=== PATIENT | female | born 1955 | race Caucasian/White ===

== ENCOUNTER 2021-05-19 15:29 | Outpatient (REF) | payer MEDICARE, SELFPAY | END 2021-05-19 15:30 | disposition home or self-care (01) | LOC: HO.LAB 15:29 | PROVIDERS: PCP Internal Medicine | DX: N39.0 Urinary tract infection, site not specified (principal) | CPT/HCPCS: 87086; 87088; 87186; 99212 ==

== ENCOUNTER 2021-09-01 15:11 | Outpatient (REF) | payer MEDICARE, SELFPAY ==
[2021-09-01 16:31] LABS: Appearance Urine CLEAR; Color Urine YELLOW; Glucose Urine UA NEG (NEG); Leukocyte Esterase Urine NEG (NEG); Nitrite Urine NEG (NEG); Specific Gravity - Urine >= 1.030 (1.005-1.025); Urine Blood NEG (NEG); Urine Ketones 5 MG/DL (NEG); Urine Protein NEG (NEG-TRACE)
[2021-09-01 16:47] LABS: Bacteria Urine 3+ /LPF; RBC Urine 0-2 /HPF (0); Squamous Epithelial Cell Urine TRACE /LPF
== END 2021-09-01 15:12 | disposition home or self-care (01) ==
LOC: HO.HMGCLDS 15:11
PROVIDERS: PCP Internal Medicine
DX: N39.0 Urinary tract infection, site not specified (principal)
CPT/HCPCS: 81001; 87086

== ENCOUNTER 2021-09-24 08:25 | Day surgery (SDC) | payer MEDICARE, SELFPAY ==
[2021-07-22 14:21] VITALS: BMI 25.7
--- NOTE | 2021-08-02 10:11 | P.CONAN_ITS ---
HPI - Anesthesia Eval Consult details Narrative: 66yo F for Colonoscopy PMFSH Active Problems Active Problems: All Active Problems (Updated 07/22/21 @ 14:26 by Yuridia Carlos, RN) Recurrent UTI (Acute) Past Medical History Medical History (Updated 07/22/21 @ 14:26 by Yuridia Carlos RN) ADD (attention deficit disorder) Diabetes Dislocated patella Hx of skin cancer, basal cell Hypothyroidism Osteoarthritis PONV (postoperative nausea and vomiting) Psoriatic arthritis PVC (premature ventricular contraction) Surgical History Surgical History (Updated 07/22/21 @ 14:19 by Yuridia Carlos RN) H/O abdominoplasty H/O cystoscopy H/O knee surgery H/O: section History of bilateral knee arthroplasty History of bladder surgery History of colon resection Hx of colonoscopy Hx of LASIK Social History Social History (Updated 07/22/21 @ 14:24 by Yuridia Carlos RN) Patient Tobacco Use Status: Former Tobacco user Quit Date: Are you DNR?: No Advance Directives: No Advance Directives Information Provided: Yes Advance Directives on File: No Patient : No Meds Allergies Allergy/AdvReac Type Severity Reaction Status Date / Time Iodinated Contrast Allergy Intermediate HIVES Verified 07/22/21 14:21 Media [IVP DYE] Home Medications Medication Instructions Recorded Confirmed Last Taken Type dextroamphetamine 1 tab PO BID 04/11/20 07/22/21 Unknown History -amphetamine 20 mg tablet flash glucose #1 ea 04/11/20 Unknown History sensor levothyroxine 112 112 mcg PO DAILY 04/11/20 07/22/21 Unknown History mcg tablet lisinopril 5 mg 5 mg PO DAILY 04/11/20 07/22/21 Unknown History tablet metformin 1,000 1,000 mg PO BID 04/11/20 07/22/21 Unknown History mg tablet Exam Exam Date and Time: August 02, 2021 1011 Height,Weight and Vital Signs: Height 5 ft 10 in Weight 81.193 kg Assessment and Plan Assessment Anesthesia Assessment: Chart Reviewed
--- NOTE | 2021-09-24 08:04 | P.CONAN_ITS ---
HPI - Anesthesia Eval Consult details Narrative: Screening Colonoscopy ON LICENSE OF [facility] Active Problems Active Problems: All Active Problems (Updated 07/22/21 @ 14:26 by Yuridia Carlos, RN) Recurrent UTI (Acute) Past Medical History Medical History ADD (attention deficit disorder) Diabetes Dislocated patella Hx of skin cancer, basal cell Hypothyroidism Osteoarthritis PONV (postoperative nausea and vomiting) Psoriatic arthritis PVC (premature ventricular contraction) Family History Family history of problems with anesthesia: No Surgical History Surgical History H/O abdominoplasty H/O cystoscopy H/O knee surgery H/O: section History of bilateral knee arthroplasty History of bladder surgery History of colon resection Hx of colonoscopy Hx of LASIK History of Problems with Anesthesia: No Social History Social History (Updated 07/22/21 @ 14:24 by Yuridia Carlos RN) Patient Tobacco Use Status: Former Tobacco user Quit Date: Meds Allergies Allergy/AdvReac Type Severity Reaction Status Date / Time Iodinated Contrast Media Allergy Intermediate HIVES Verified 07/22/21 14:21 [IVP DYE] Active Medications: Current Medications Lactated Ringer's (Lr) 1,000 mls @ 50 mls/hr IVCONT .Q20H [facility] Home Medications Medication Instructions Recorded Confirmed Last Taken Type dextroamphetamine-amphetamine 20 1 tab PO BID 04/11/20 07/22/21 Unknown History mg tablet flash glucose sensor #1 ea 04/11/20 Unknown History levothyroxine 112 mcg tablet 112 mcg PO DAILY 04/11/20 07/22/21 Unknown History lisinopril 5 mg tablet 5 mg PO DAILY 04/11/20 07/22/21 Unknown History metformin 1,000 mg tablet 1,000 mg PO BID 04/11/20 07/22/21 Unknown History Exam Exam Date and Time: September 24, 2021 0804 Height,Weight and Vital Signs: Height 5 ft 10 in Weight 81.193 kg Airway Mallampati Class: II TM Dist: >3cm Neck ROM: Full Loose/Missing/Broken Teeth: No Heart: rrr+s1s2 Lungs: cta b/l Assessment and Plan Assessment Anesthesia Assessment: Anesthesia Plan Discussed and Chart Reviewed Final Anesthetic Review Family History of Problems with Anesthesia: No History of Problems with Anesthesia: No NPO: Yes ASA Class: III Final Preanesthetic Review: No Changes in Pt Med Stat, Meds/Allgs Chart Reviewed, Consent Obtained/Reviewed and Anes Risks/Benef Reviewed Patient Risk: Intermediate Procedure Risk: Low Assessment/Block/Sedation in SS: Assess/Block/Sedation-SS Anesthetic Plan Anesthetic Plan: MAC: and Agree w/ Assess. and Plan Disposition: Standard PACU
[2021-09-24] MEDS: Lactated Ringers 1,000 ML 50 ML IVCONT (09:00)
[2021-09-24 09:07] LABS: Glucose, Whole Blood 204 mg/dL (60-115)
[2021-09-24 09:08] VITALS: BP 138/64; PULSE 75; RESP 16; TEMP 36.4; O2SAT 99
--- NOTE | 2021-09-24 10:03 | MHC.SHP ---
Pre-Procedural Eval Section A Date of Service: 09/24/21 Section B Chief Complaint: Hemorrahage of anus and rectum, Change in bowel Wing Details of Present Illness: see H&P no changes Relevant Family History (Specify if Yes): No Relevant Social History: None Present Medications: see Short Stay Collaborative assessment Medical History: No relevant PMH History of Previous Operations: No relevant previous surgery Allergies: Allergies Allergy/AdvReac Type Severity Reaction Status Date / Time Iodinated Contrast Media Allergy Intermediate HIVES Verified 07/22/21 14:21 [IVP DYE] Review of Systems Sugical H&P ROS: Negative: Constitution, Cardiovascular, Respiratory, Neurological, Psychiatric, Hem-Onc, Allergic/Immunologic, Gastrointestinal, Genitourinary, Musculoskeletal, Integumentary, Endocrine and Eyes/Ears/Nose/Throat Exam Surgical H&P Exam: Normal: HEENT, Normal: Heart, Normal: Lungs, Normal: Extremities, Normal: Abdomen, Normal: Skin and Normal: Neurological Plan Diagnosis/Plan: Unchanged I have reviewed the history and physical and performed a pertinent physical examination on my patient. No changes have occurred unless specified.
--- NOTE | 2021-09-24 10:49 | PM.OP ---
Brief Operative Note Date of Service: 09/24/21 Pre-op diagnosis: rectal bleeding, change in bowels Post-op diagnosis: same (normal exam) Procedure: colonoscopy Surgeon: Jaquan Daniel Anesthesia: MAC Was an Dye Tub Tender used for this Procedure?: No Estimated blood loss (mL): 2 Pathology: other (sigmoid biopsies) Condition: stable Disposition: PACU
[2021-09-24 10:51] VITALS: BP 96/48; PULSE 68; RESP 16; TEMP 37.3; O2SAT 96
[2021-09-24 11:06] VITALS: BP 114/58; PULSE 65; RESP 16; TEMP 36.1; O2SAT 99
--- NOTE | 2021-09-24 11:10 | OP_ITS ---
SURGEON: Jaquan Daniel MD INDICATIONS: Rectal bleeding and change in bowel habits. PREOPERATIVE DIAGNOSIS: POSTOPERATIVE DIAGNOSIS: PROCEDURE PERFORMED: Colonoscopy to the terminal ileum with biopsy. ESTIMATED BLOOD LOSS: COMPLICATIONS: ANESTHESIA: ASSISTANTS: SPECIMENS: MEDICATIONS: Monitored anesthesia care. DESCRIPTION OF PROCEDURE: History and physical were performed. The risks and benefits of the procedure were explained to the patient. Informed consent was obtained. The patient was placed in the left lateral decubitus position. A digital rectal exam was performed and showed some decreased sphincter tone. The Olympus pediatric video colonoscope was introduced into the rectum and advanced to the cecum without difficulty. The cecum was identified by transillumination, palpation, and identification of ileocecal valve. Examination was performed. The scope was removed. She tolerated the procedure well and was taken to recovery area in stable condition. FINDINGS: The terminal ileum was examined and appeared normal. The visualized colonic mucosa was normal. The quality of prep was good. There was diverticulosis involving the sigmoid with scattered diverticula throughout the remainder of the colon. There was some slight narrowing to the rectal sigmoid, which made retroflexed examination difficult, but no mass lesion was identified. Random sigmoid biopsies were obtained to evaluate for microscopic colitis. IMPRESSION: Negative colonoscopy. RECOMMENDATION: 1. Follow up the biopsy results. 2. Repeat colonoscopy is recommended in 10 years for average risk individuals. MD ARUN Orantes/DEBORAHL / [phone]
== END 2021-09-24 12:05 | disposition home or self-care (01) ==
PROVIDERS: PCP Internal Medicine; Visit Provider Internal Medicine Gastroenterology
PROC: 0DJD8ZZ Inspection of Lower Intestinal Tract, Via Natural or Artificial Opening Endoscopic (ICD-10-PCS; CPT 45378; principal; 2021-09-24 08:20)
DX: K62.5 Hemorrhage of anus and rectum (principal); R19.4 Change in bowel habit; Z86.010 Personal history of colon polyps; K57.30 Diverticulosis of large intestine without perforation or abscess without bleeding; K62.89 Other specified diseases of anus and rectum; R32 Unspecified urinary incontinence; Z87.440 Personal history of urinary (tract) infections; I49.3 Ventricular premature depolarization; J30.2 Other seasonal allergic rhinitis; E11.9 Type 2 diabetes mellitus without complications; Z79.84 Long term (current) use of oral hypoglycemic drugs; Z79.82 Long term (current) use of aspirin; Z79.899 Other long term (current) drug therapy; Z91.041 Radiographic dye allergy status; Z90.49 Acquired absence of other specified parts of digestive tract; Z96.653 Presence of artificial knee joint, bilateral; Z98.890 Other specified postprocedural states; Z87.891 Personal history of nicotine dependence
CPT/HCPCS: 45380; 82947; 88305

== ENCOUNTER → 2021-10-14 10:07 | Outpatient (BNVA) | payer MEDICARE, SELFPAY | PROVIDERS: PCP Internal Medicine; Visit Provider Urology | DX: Z13.89 Encounter for screening for other disorder (principal) ==

== ENCOUNTER → 2021-11-25 09:28 | Outpatient (BNVA) | payer MEDICARE, SELFPAY | PROVIDERS: PCP Internal Medicine; Visit Provider Urology | DX: N39.0 Urinary tract infection, site not specified (principal) | CPT/HCPCS: 99212 ==

== ENCOUNTER → 2022-05-31 10:12 | Outpatient (BNVA) | payer MEDICARE, SELFPAY | PROVIDERS: PCP Internal Medicine; Visit Provider Urology | DX: N39.0 Urinary tract infection, site not specified (principal); N32.81 Overactive bladder | CPT/HCPCS: 51798; 99212 ==

== ENCOUNTER 2022-08-09 14:18 | Outpatient (REF) | payer MEDICARE, SELFPAY ==
[2022-08-09 16:40] LABS: Appearance Urine Clear; Color Urine Yellow; Glucose Urine UA Negative (Negative); Leukocyte Esterase Urine Trace (Negative); Nitrite Urine Negative (Negative); PH 5.5 (5.0-9.0); Specific Gravity - Urine 1.025 (1.005-1.025); UMIC TRIGGER UA YES; Urine Blood Negative (Negative); Urine Ketones Negative (Negative); Urine Protein Negative (Neg-Trace)
[2022-08-09 16:43] LABS: Bacteria Urine None Seen (None Seen); Hyaline Casts Urine 0-2 /LPF (0-2); RBC Urine 0-2 /HPF (0-2); Squamous Epithelial Cell Urine 0-2 /HPF (0-2); WBC Urine 0-5 /HPF (0-5)
== END 2022-08-09 14:19 | disposition home or self-care (01) ==
LOC: HO.HMGCLDS 14:18
PROVIDERS: PCP Internal Medicine; Visit Provider Urology
DX: N39.0 Urinary tract infection, site not specified (principal)
CPT/HCPCS: 81001; 87086

== ENCOUNTER → 2022-12-08 11:28 | Outpatient (BNVA) | payer MEDICARE, SELFPAY | PROVIDERS: PCP Internal Medicine; Visit Provider Urology | DX: N31.9 Neuromuscular dysfunction of bladder, unspecified (principal); N32.81 Overactive bladder; N39.0 Urinary tract infection, site not specified | CPT/HCPCS: 51798; 99212 ==

== ENCOUNTER 2023-10-09 14:49 | Outpatient (REF) | payer MEDICARE, SELFPAY ==
[2023-10-09 15:32] LABS: Appearance Urine Clear; Color Urine Yellow; Glucose Urine UA Negative (Negative); Leukocyte Esterase Urine Small (1+) (Negative); Nitrite Urine Negative (Negative); PH 5.5 (5.0-9.0); UMIC TRIGGER UA YES; Urine Blood Negative (Negative); Urine Ketones Negative (Negative); Urine Protein Negative (Neg-Trace)
[2023-10-09 15:35] LABS: Bacteria Urine None Seen (None Seen); Hyaline Casts Urine 0-2 /LPF (0-2); RBC Urine 0-2 /HPF (0-2); Squamous Epithelial Cell Urine 0-2 /HPF (0-2)
== END 2023-10-09 14:50 | disposition home or self-care (01) ==
LOC: HO.LAB 14:49
PROVIDERS: PCP Internal Medicine; Visit Provider Urology
DX: N39.0 Urinary tract infection, site not specified (principal)
CPT/HCPCS: 81001; 87086

== ENCOUNTER 2023-11-09 11:45 | Outpatient (REF) | payer MEDICARE, SELFPAY ==
[2023-11-10 10:14] LABS: Adenovirus F 40/41 Not Detected (Not Detect.); Astrovirus Not Detected (Not Detect.); Campylobacter Not Detected (Not Detect.); Cryptosporidium Not Detected (Not Detect.); Cyclospora cayetanensis Not Detected (Not Detect.); E. coli EAEC Not Detected (Not Detect.); E. coli EPEC Not Detected (Not Detect.); E. coli ETEC Not Detected (Not Detect.); E. coli STEC Not Detected (Not Detect.); Entamoeba histolytica Not Detected (Not Detect.); Giardia lamblia Not Detected (Not Detect.); Norovirus GI/GII Not Detected (Not Detect.); Plesiomonas shigelloides Not Detected (Not Detect.); Rotavirus A Not Detected (Not Detect.); Salmonella Not Detected (Not Detect.); Sapovirus Not Detected (Not Detect.); Shigella sp./EIEC Not Detected (Not Detect.); Vibrio Not Detected (Not Detect.); Vibrio Cholerae Not Detected (Not Detect.); Yersinia enterocolitica Not Detected (Not Detect.)
== END 2023-11-09 11:46 | disposition home or self-care (01) ==
LOC: HO.LNP 11:45
PROVIDERS: Visit Provider Internal Medicine Gastroenterology
DX: R10.11 Right upper quadrant pain (principal); R19.7 Diarrhea, unspecified
CPT/HCPCS: 87507

== ENCOUNTER 2023-11-13 13:42 | Outpatient (AMB) | payer MEDICARE, SELFPAY ==
--- NOTE | 2023-11-13 13:46 | MHC.OFFVIS ---
Intake Visit Reasons: UTI/Urodynamic discussion Intake Note: Patient is present today for a follow-up on UTI and to discuss Urodynamic: Urology Med: Estradiol, Antibiotic Allergy: none Blood Thinner: Eliquis Crushed Stone Grader Required: No Accompanied by: Self / Same As Patient Allergies Iodinated Contrast Media [IVP DYE] Allergy (Intermediate, Verified 11/13/23 13:46) WINES HPI Comments Details: 11/13/23--- Amanda is a 68-year-old female who complains of lower urinary tract symptoms of hesitancy and urgency. She has had recurrent UTIs. She she has been followed by Dr. Ly last seen about a year ago 12/06/2022. Co-morbidities diabetes and immunosuppressive therapy for arthritis. She has had prior surgeries including prolapse repair with vaginal sling [address] Crow. And in review of Dr. Ly's notes, indication of prior InterStim. She is here to discuss further evaluation with urodynamics. She has been on vaginal estrogen therapy, prescribed Estrace cream. Urinalysis negative for blood, 1+ leukocytes. She denies dysuria or UTI symptoms. Will schedule urodynamics for further evaluation, voiding dysfunction. [facility] Medical History ADD (attention deficit disorder) Diabetes Dislocated patella Hx of skin cancer, basal cell Hypothyroidism Osteoarthritis PONV (postoperative nausea and vomiting) Psoriatic arthritis PVC (premature ventricular contraction) Surgical History H/O abdominoplasty H/O cystoscopy H/O knee surgery H/O: section History of bilateral knee arthroplasty History of bladder surgery History of colon resection Hx of colonoscopy Hx of LASIK Social History Patient Tobacco Use Status: Former Tobacco user Review of Systems Const All systems reviewed & are unremarkable except as noted in HPI and below Reports no additional complaints Eyes Reports no additional complaints ENT Reports no additional complaints Card Reports no additional complaints Resp Reports no additional complaints GI Reports no additional complaints Reports as per HPI Musc Reports no additional complaints Skin/Breast Reports system reviewed and no additional complaints, except as documented Neuro Reports no additional complaints Psych Reports no additional complaints Endo Reports no additional complaints Rich/Lymph Reports no additional complaints Aller/Immun Reports no additional complaints Results AMB Urinalysis, Automated UA Leukoctes 70 Akilah/uL Last Edit by ALISSA Gupta on 11/13/23 13:50 1+ Cornelia Hobson 11/13/23 13:50 UA Nitrite Negative Last Edit by Cornelia Hobson [facility] on 11/13/23 13:50 UA Urobilinogen 0.2 mg/dL Last Edit by Cornelia Hobson [facility] on 11/13/23 13:50 UA Protein 15 mg/dL Last Edit by Cornelia Hobson [facility] on 11/13/23 13:50 UA pH 6.0 Last Edit by Cornelia Hobson [facility] on 11/13/23 13:50 UA Blood 0 Edilberto/uL Last Edit by Cornelia Hobson [facility] on 11/13/23 13:50 UA Specific Deeth 1.020 Last Edit by Cornelia Hobson Jessi on 11/13/23 13:50 UA Ketone Positive Last Edit by Cornelia Hobson [facility] on 11/13/23 13:50 5 mg/dL Cornelia Hobson 11/13/23 13:50 UA Bilirubin 0 mg/dL Last Edit by Cornelia Hobson [facility] on 11/13/23 13:50 UA Glucose 0 mg/dL Last Edit by Cornelia Hobson [facility] on 11/13/23 13:50 Results Reviewed Results Reviewed: Laboratory Last Values Urine pH (Auto) 6.0 11/13/23 13:48 Specific Deeth (Auto) 1.020 11/13/23 13:48 Urine Protein (Auto) 15 mg/dL 11/13/23 13:48 Glucose (UA)(Auto) 0 mg/dL 11/13/23 13:48 Urine Ketones (Auto) Positive 11/13/23 13:48 Urine Blood (Auto) 0 Edilberto/uL 11/13/23 13:48 Urine Nitrite (Auto) Negative 11/13/23 13:48 Urine Bilirubin (Auto) 0 mg/dL 11/13/23 13:48 Urine Urobilinogen (Auto) 0.2 mg/dL 11/13/23 13:48 Leukocyte Esterase (Auto) 70 Akilah/uL 11/13/23 13:48 Assessment & Plan Assessment & Plan (1) Neurogenic urinary bladder disorder: Code(s): N31.9 - Neuromuscular dysfunction of bladder, unspecified Category: Medical (2) Overactive bladder: Code(s): N32.81 - Overactive bladder Category: Medical (3) Recurrent UTI: Code(s): N39.0 - Urinary tract infection, site not specified Category: Medical Plan Schedule urodynamics Orders: Orders AMB Urinalysis Automated 11/13/23 Z13.9 - Encounter for screening, unspecified Patient Instructions: The patient had an opportunity to ask questions regarding treatment plan. The patient expressed understanding and agreement with the above treatment plan. The patient is aware they should contact our office by phone for worsening of their current condition or the appearance of new symptoms. Compliance is encouraged with any medications and followup testing that is ordered. It is a privilege to be allowed the opportunity to participate in the urologic care of your patient. If you have any questions or concerns regarding treatment for the above conditions please do not hesitate to contact me. The office telephone contact is [phone]. This note is constructed in part using voice recognition software. While every effort has been made to ensure accuracy radiology director errors may have been included. Yours sincerely, Hakeem Doe MD Coding Level of Care Code Est Pt Level 3 (69060) Complex EM visit Add On G2211 Diagnoses Neurogenic urinary bladder disorder N31.9 Overactive bladder N32.81 Recurrent UTI N39.0
== END 2023-11-13 14:50 | disposition home or self-care (01) ==
PROVIDERS: PCP Internal Medicine; Visit Provider Urology
DX: N31.9 Neuromuscular dysfunction of bladder, unspecified (principal); N32.81 Overactive bladder; N39.0 Urinary tract infection, site not specified
CPT/HCPCS: 99213; G2211

== ENCOUNTER → 2023-11-13 13:42 | Outpatient (BNVA) | payer MEDICARE, SELFPAY | PROVIDERS: PCP Internal Medicine; Visit Provider Urology | DX: N39.0 Urinary tract infection, site not specified (principal) | CPT/HCPCS: 81003; 99212 ==

== ENCOUNTER 2023-11-22 07:39 | Outpatient (REF) | payer MEDICARE, SELFPAY ==
--- NOTE | ~2023-11-22 | US_ITS ---
EXAMINATION: US ABDOMEN COMPLETE CLINICAL INFORMATION: Diarrhea. Right upper quadrant pain. COMPARISON: None available. TECHNIQUE: Real-time imaging of the abdominal viscera. Limited visualization due to bowel gas. FINDINGS: PANCREAS: Limited visualization of pancreatic tail and head. Imaged portion of pancreatic body is unremarkable. ABDOMINAL AORTA: Atherosclerosis. Limited visualization. INFERIOR VENA CAVA: Visualized portions are normal. LIVER: Increased hepatic parenchymal heterogeneity and echogenicity could be associated with hepatocellular disease/hepatic steatosis and substantially limits visualization. Correlation with liver function tests and clinical exam recommended to determine further management. GALLBLADDER: Multiple mobile gallstones. Borderline gallbladder wall thickening of 3 mm. COMMON BILE DUCT: Normal in caliber measuring 0.4 cm in diameter. RIGHT KIDNEY: No hydronephrosis. No renal calculi. Limited visualization. The kidney measures 11.4 cm in maximum dimension. LEFT KIDNEY: No hydronephrosis. No renal calculi. Limited visualization. The kidney measures 13.4 cm in maximum dimension. SPLEEN: Normal. The spleen measures 8.6 cm in maximum dimension. FREE FLUID: None. US/US abdomen complete IMPRESSION: 1. Increased hepatic parenchymal heterogeneity and echogenicity could be associated with hepatocellular disease/hepatic steatosis and substantially limits visualization. Correlation with liver function tests and clinical exam recommended to determine further management. 2. Cholelithiasis. Borderline gallbladder wall thickening of 3 mm. 3. Atherosclerosis in the abdominal aorta.
[2023-11-22 09:07] LABS: MANUAL DIFF FLAG NO
[2023-11-22 10:05] LABS: Basophils Absolute Auto 0.1 X10*3/uL (0.0-0.2); Basophils Percent Auto 1.1 % (0-2); Eosinophils Absolute Auto 0.1 X10*3/uL (0.0-0.4); Eosinophils Percent Auto 2.1 % (0-4); Hematocrit 40.4 % (37.0-47.0); Hemoglobin 13.2 g/dl (12.0-16.0); Imm Gran Abs Auto 0.02 X10*3/uL (0.00-0.03); Imm Gran Pct Auto 0.3 % (0.0-0.4); Lymphocytes Absolute Auto 2.5 X10*3/uL (1.2-4.9); Lymphocytes Percent Auto 39.5 % (20-40); Mean Corpuscular HGB Conc 32.7 g/dl (31.0-35.0); Mean Corpuscular Hemoglobin 30.5 pg (27.0-33.0); Mean Corpuscular Volume 93.3 fL (80.0-98.0); Mean Platelet Volume 8.8 fL (9.4-12.3); Monocytes Absolute Auto 0.7 X10*3/uL (0.1-1.2); Neutrophils Absolute Auto 2.9 x10*3/uL (2.0-8.3); Platelet Count 430 X10*3/uL (160-400); Red Blood Count 4.33 X10*6/uL (4.20-5.50); Red Cell Distribution Width 12.3 % (11.0-16.0); White Blood Count 6.3 X10*3/uL (4.8-10.8)
[2023-11-22 10:39] LABS: Alanine Aminotransferase 22 U/L (0-31); Albumin Level 3.9 g/dL (3.5-5.0); Alkaline Phosphatase 81 U/L (39-117); Aspartate Amino Transferase 22 U/L (5-31); Bilirubin Direct 0.3 mg/dL (0.0-0.5); Bilirubin Total 0.9 mg/dL (0.0-1.0); Lipase 16 U/L (8-78); Total Protein 6.9 g/dL (6.5-8.0)
== END 2023-11-22 07:40 | disposition home or self-care (01) ==
LOC: HO.US 07:39
PROVIDERS: PCP Internal Medicine; Visit Provider Internal Medicine Gastroenterology
DX: R10.11 Right upper quadrant pain (principal); R19.7 Diarrhea, unspecified
CPT/HCPCS: 36415; 76700; 80076; 83690; 85025

== ENCOUNTER 2023-12-26 10:58 | Outpatient (REF) | payer MEDICARE, SELFPAY | END 2023-12-26 10:59 | disposition home or self-care (01) | LOC: HO.LAB 10:58 | PROVIDERS: Visit Provider Urology | DX: N39.0 Urinary tract infection, site not specified (principal) | CPT/HCPCS: 87086 ==

== ENCOUNTER → 2024-01-05 09:15 | Outpatient (BNVA) | payer MEDICARE, SELFPAY | PROVIDERS: PCP Internal Medicine; Visit Provider Urology ==

== ENCOUNTER 2024-01-11 08:04 | Outpatient (REF) | payer MEDICARE, SELFPAY ==
--- NOTE | ~2024-01-11 | FL_ITS ---
EXAMINATION: XR FLUOROSCOPY UPPER GI WITH SMALL BOWEL SERIES CLINICAL INFORMATION: Diarrhea COMPARISON: None TECHNIQUE: Fluoroscopic air contrast upper GI examination was performed utilizing standard techniques with thin and thick barium and effervescent granules. Numerous spot images were obtained. FINDINGS: UPPER GI: There is ballooning of hypopharynx with moderate cricopharyngeal achalasia present. A small Zenker's diverticulum is present. A small anterior cervical web is present just below the hypopharynx (RF 1-24). Dual and single contrast images of the esophagus demonstrate normal caliber, and contour. There is felinization of the distal esophageal mucosa. No evidence of stricture, mass, or ulcerations identified. Esophageal peristalsis was mildly disorganized. A small type I hiatal hernia is present. No significant gastroesophageal reflux was seen during the course of the examination and on reflux views. Dual contrast and single contrast images of the stomach demonstrated a normal contour. There are a few foci of contrast pooling in the fundus of the stomach that may represent small superficial aphthous ulcers. No masses are seen. Contrast freely passed into the gastric antrum and duodenal bulb without delay.Single and air-contrast images of the duodenal bulb demonstrate no abnormality. The duodenal sweep has a normal appearance, course, and mucosal fold appearance. A diverticulum is seen in the second portion of the duodenum. No malrotation. SMALL BOWEL SERIES: Manager Ct view demonstrates normal bowel gas pattern. There are anastomotic sutures noted overlying the left sacrum in the mid pelvis. There is a spinal stimulator device overlying the right iliac bone, with lead extending into the right second sacral foramen. There are mild to moderate degenerative changes in both hip joints and both SI joints. Similar changes in the lower lumbar spine. No organomegaly or abnormal soft tissue calcifications. Moderate fecal material is noted in the ascending colon. Lung bases appear clear. The imaged jejunum and ileum have normal fold pattern and caliber. No masses, filling defects, or strictures. Contrast is observed in the colon to the level of the splenic flexure at 30 minutes, somewhat rapid transit. FLUOROSCOPY TIME: 5 minutes 39 seconds Number of Spot Images: 20 Number of Cine: 10 DOSE AREA PRODUCT: 4379 uGy-m2 (microgray-meter squared) FL/FL upper GI w air w SBFT IMPRESSION: 1. There is ballooning of the hypopharynx with moderate cricopharyngeal achalasia present. No laryngeal penetration or aspiration was observed. 2. Small Zenker's diverticulum 3. Small anterior cervical web is present just below the hypopharynx. 4. Felinization of the distal esophageal mucosa. This is a benign finding associated gastroesophageal reflux. While reflux was not seen during the examination, suspect at least mild to moderate. 5. Small type I hiatal hernia 6. There are a few foci of contrast pooling in the fundus the stomach that may represent small superficial aphthous ulcers. Recommend correlation with EGD. 7. A small diverticulum is seen in the second portion the duodenum. 8. There is rapid transit of the barium column, with contrast observed in the splenic flexure at 30 minutes. Etiology of rapid transit is unclear. Otherwise, normal small bowel. This procedure was performed by Bandar Byrd PA-C, and supervised by Dr. Kearney
== END 2024-01-11 08:05 | disposition home or self-care (01) ==
LOC: HO.XRAY 08:04
PROVIDERS: PCP Internal Medicine; Visit Provider Internal Medicine Gastroenterology
DX: R19.7 Diarrhea, unspecified (principal)
CPT/HCPCS: 74246; 74248

== ENCOUNTER → 2024-01-11 08:12 | Outpatient (BNV) | payer MEDICARE, SELFPAY | PROVIDERS: PCP Internal Medicine; Visit Provider Physician Assistant Surgical | DX: R19.7 Diarrhea, unspecified (principal) | CPT/HCPCS: 74246; 74248 ==

== ENCOUNTER 2024-01-24 13:13 | Outpatient (REF) | payer MEDICARE, SELFPAY ==
[2024-01-27 16:58] LABS: Fecal Fat Qualitative Normal (Normal)
[2024-02-01 17:18] LABS: Pancreatic Elastase-1 175 mcg/g
== END 2024-01-24 13:14 | disposition home or self-care (01) ==
LOC: HO.LNP 13:13
PROVIDERS: Visit Provider Internal Medicine Gastroenterology
DX: R19.7 Diarrhea, unspecified (principal)
CPT/HCPCS: 82656; 82705

== ENCOUNTER 2024-03-19 07:18 | Day surgery (SDC) | payer MEDICARE, SELFPAY ==
[2024-03-14 14:10] VITALS: BMI 25.6
--- NOTE | 2024-03-14 15:23 | HO.ANESPROP2 ---
HPI - Anesthesia Eval Consult details Narrative: 68yo F for Upper Endoscopy and Colonoscopy Eliquis for PAF PMFSH Active Problems Active Problems: All Active Problems Neurogenic urinary bladder disorder (Acute) Overactive bladder (Acute) Recurrent UTI (Acute) Past Medical History Medical History Hx of sleep apnea Elevated cholesterol PAF (paroxysmal atrial fibrillation) Hypothyroidism Dislocated patella PONV (postoperative nausea and vomiting) Osteoarthritis Psoriatic arthritis Hx of skin cancer, basal cell Diabetes ADD (attention deficit disorder) PVC (premature ventricular contraction) Family History Family history of problems with anesthesia: No Surgical History Surgical History Hx of colonoscopy History of bilateral knee arthroplasty Hx of LASIK H/O cystoscopy H/O knee surgery History of colon resection H/O abdominoplasty History of bladder surgery H/O: section History of Problems with Anesthesia: No Social History Social History Patient Tobacco Use Status: Former Tobacco user Have you been hit, kicked, punched, or otherwise hurt by someone within the past year? If so, by whom?: No Are you DNR?: No Advance Directives: No Advance Directives Information Provided: Yes Patient : No Meds Allergies Allergy/AdvReac Type Severity Reaction Status Date / Time Iodinated Contrast Media Allergy Intermediate HIVES Verified 11/13/23 13:46 [IVP DYE] Home Medications ?Medication ?Instructions ?Recorded ?Confirmed ?Last Taken ?Type flash glucose sensor #1 ea 04/11/20 12/08/22 Unknown History levothyroxine 112 mcg tablet 112 mcg PO DAILY 04/11/20 03/14/24 03/19/24 History metformin 1,000 mg tablet 1,000 mg PO BID 04/11/20 03/14/24 Unknown History apixaban 5 mg tablet (Eliquis) 5 mg PO BID 05/30/22 03/14/24 03/15/24 History atorvastatin 40 mg tablet 40 mg PO DAILY 05/30/22 03/14/24 Unknown History bupropion HCl 300 mg 24 hr tablet, 300 mg PO DAILY 05/30/22 03/14/24 Unknown History extended release benazepril 10 mg tablet 10 mg PO DAILY 03/14/24 03/14/24 Unknown History diltiazem HCl 30 mg tablet 30 mg PO DAILY 03/14/24 03/14/24 Unknown History insulin glargine U-300 conc 300 18 unit subcut DAILY 03/14/24 03/14/24 Unknown History unit/mL (3 mL) subcutaneous pen (Toujeo Max U-300 SoloStar) [id number] 1 cap PO DAILY 03/14/24 03/14/24 Unknown History 24,000-76,000-120,000 unit capsule,delayed rel (Creon) Exam Height,Weight and Vital Signs: Height 5 ft 10 in Weight 80.9 kg Assessment and Plan Assessment Anesthesia Assessment: Chart Reviewed Final Anesthetic Review Family History of Problems with Anesthesia: No History of Problems with Anesthesia: No
[2024-03-19 07:57] VITALS: BP 126/75; PULSE 89; RESP 20; TEMP 36.9; O2SAT 97; BMI 25.7
[2024-03-19 08:09] LABS: Glucose, Whole Blood 119 mg/dL (60-115)
[2024-03-19] MEDS: Lactated Ringers 1,000 ML 100 ML IVCONT (08:11)
--- NOTE | 2024-03-19 09:12 | P.CONAN_ITS ---
[facility] Active Problems Active Problems: All Active Problems Neurogenic urinary bladder disorder (Acute) Overactive bladder (Acute) Recurrent UTI (Acute) Past Medical History Medical History Hx of sleep apnea Elevated cholesterol PAF (paroxysmal atrial fibrillation) Hypothyroidism Dislocated patella PONV (postoperative nausea and vomiting) Osteoarthritis Psoriatic arthritis Hx of skin cancer, basal cell Diabetes ADD (attention deficit disorder) PVC (premature ventricular contraction) Functional capacity: independent ambulation Patient : No Family History Family history of problems with anesthesia: No Surgical History Surgical History Hx of colonoscopy History of bilateral knee arthroplasty Hx of LASIK H/O cystoscopy H/O knee surgery History of colon resection H/O abdominoplasty History of bladder surgery H/O: section History of Problems with Anesthesia: No Social History Social History Patient Tobacco Use Status: Former Tobacco user Have you been hit, kicked, punched, or otherwise hurt by someone within the past year? If so, by whom?: No Are you DNR?: No Advance Directives: No Advance Directives Information Provided: Yes Meds Allergies Allergy/AdvReac Type Severity Reaction Status Date / Time Iodinated Contrast Media Allergy Intermediate HIVES Verified 11/13/23 13:46 [IVP DYE] Active Medications: Current Medications Lactated Ringer's (Lr) 1,000 mls @ 100 mls/hr IVCONT .Q10H MATEUS Last Admin: 03/19/24 08:11 Dose: 100 mls/hr Home Medications ?Medication ?Instructions ?Recorded ?Confirmed ?Last Taken ?Type flash glucose sensor #1 ea 04/11/20 12/08/22 Unknown History levothyroxine 112 mcg tablet 112 mcg PO DAILY 04/11/20 03/14/24 03/19/24 History metformin 1,000 mg tablet 1,000 mg PO BID 04/11/20 03/14/24 Unknown History apixaban 5 mg tablet (Eliquis) 5 mg PO BID 05/30/22 03/14/24 03/15/24 History atorvastatin 40 mg tablet 40 mg PO DAILY 05/30/22 03/14/24 Unknown History bupropion HCl 300 mg 24 hr tablet, 300 mg PO DAILY 05/30/22 03/14/24 Unknown History extended release benazepril 10 mg tablet 10 mg PO DAILY 03/14/24 03/14/24 Unknown History diltiazem HCl 30 mg tablet 30 mg PO DAILY 03/14/24 03/14/24 Unknown History insulin glargine U-300 conc 300 18 unit subcut DAILY 03/14/24 03/14/24 Unknown History unit/mL (3 mL) subcutaneous pen (Toujeo Max U-300 SoloStar) [id number] 1 cap PO DAILY 03/14/24 03/14/24 Unknown History 24,000-76,000-120,000 unit capsule,delayed rel (Creon) Exam Height,Weight and Vital Signs: Height 5 ft 10 in Weight 81.3 kg Last Vital Signs Temp 98.5 F 03/19/24 07:57 Pulse 89 03/19/24 07:57 Resp 20 03/19/24 07:57 BP 126/75 03/19/24 07:57 Pulse Ox 97 03/19/24 07:57 O2 Del Method Room Air 03/19/24 07:57 Pertinent Lab Results Pertinent Lab Results: Laboratory Tests 03/19/24 08:04 POC Glucose 119 H Airway Mallampati Class: III TM Dist: >3cm Neck ROM: Full Heart: RRR Lungs: CTA Assessment and Plan Assessment Anesthesia Assessment: Anesthesia Plan Discussed Final Anesthetic Review Family History of Problems with Anesthesia: No History of Problems with Anesthesia: No NPO: Yes ASA Class: III Final Preanesthetic Review: Meds/Allgs Chart Reviewed, Consent Obtained/Reviewed and Anes Risks/Benef Reviewed Patient Risk: Low Procedure Risk: Low Anesthetic Plan Anesthetic Plan: MAC: Disposition: Standard PACU
--- NOTE | 2024-03-19 09:23 | MHC.SHP ---
Pre-Procedural Eval Section A - 24 Hr Update-Section A only Date of Service: 03/19/24 Section B - Complete if H&P > 30 days Chief Complaint: Abnormal findings on diagnostic imaging of other p Details of Present Illness: see H&P no changes Relevant Family History (Specify if Yes): No Relevant Social History: None Present Medications: see Short Stay Collaborative assessment Medical History: No relevant PMH History of Previous Operations: No relevant previous surgery Allergies: Allergies Allergy/AdvReac Type Severity Reaction Status Date / Time Iodinated Contrast Media Allergy Intermediate HIVES Verified 11/13/23 13:46 [IVP DYE] Review of Systems Sugical H&P ROS: Negative: Constitution, Cardiovascular, Respiratory, Neurological, Psychiatric, Hem-Onc, Allergic/Immunologic, Gastrointestinal, Genitourinary, Musculoskeletal, Integumentary, Endocrine and Eyes/Ears/Nose/Throat Exam Surgical H&P Exam: Normal: HEENT, Normal: Heart, Normal: Lungs, Normal: Extremities, Normal: Abdomen, Normal: Skin and Normal: Neurological Plan Diagnosis/Plan: Unchanged I have reviewed the history and physical and performed a pertinent physical examination on my patient. No changes have occurred unless specified. Time Spent With Patient Time: Total time managing care of this patient today ____ minutes.
[2024-03-19 10:20] VITALS: BP 110/42; PULSE 75; RESP 16; TEMP 35.5
--- NOTE | 2024-03-19 10:31 | OP_ITS ---
DATE OF SERVICE: 03/19/2024 SURGEON: Jaquan Daniel MD INDICATIONS: 1. Abnormal upper GI series. 2. Rectal bleeding. 3. Diarrhea. PREOPERATIVE DIAGNOSIS: POSTOPERATIVE DIAGNOSIS: PROCEDURE PERFORMED: Upper endoscopy with biopsy, colonoscopy to the cecum with biopsy. ESTIMATED BLOOD LOSS: COMPLICATIONS: ANESTHESIA: Monitored anesthesia care. ASSISTANTS: SPECIMENS: DESCRIPTION OF PROCEDURE: A history and physical was performed. The risks and benefits of the procedure were explained to the patient and informed consent was obtained. The patient was placed in the left lateral decubitus position. A digital rectal exam was performed and was found to be normal. The Olympus video gastroscope was introduced into the esophagus, stomach, and duodenum. Examination was performed and the scope was removed. She was repositioned for colonoscopy. The Olympus pediatric video colonoscope was introduced into the rectum and advanced to the cecum. The cecum was identified by transillumination, palpation, and identification of ileocecal valve. Examination was performed and the scope was removed. She tolerated both procedures well and was returned to recovery area in stable condition. FINDINGS: Upper endoscopy, Esophagus: The esophagus was normal. The EG junction was biopsied. Stomach: The stomach was normal. Antral biopsies were obtained to evaluate for H pylori. Duodenum: The bulb and 2nd portion were normal. Biopsies were obtained from the 2nd portion. Colonoscopy: The terminal ileum was not examined. The visualized colonic mucosa was normal. The quality of the prep was good. There was mild sigmoid diverticulosis. Retroflexed examination showed some small internal hemorrhoids. Random sigmoid biopsies were obtained to evaluate for any evidence of microscopic colitis. IMPRESSION: 1. Abnormal upper gastrointestinal series. 2. Normal colonoscopy. RECOMMENDATION: Follow up the biopsy results. Screening colonoscopy in 10 years. MD ARUN Orantes/MACRINA / [id number] MTDD
[2024-03-19 10:35] VITALS: BP 121/63; PULSE 73; RESP 16; O2SAT 98
[2024-03-19 10:50] VITALS: BP 147/71; PULSE 65; RESP 16; TEMP 36.1; O2SAT 98
--- NOTE | 2024-03-19 12:26 | HO.POSTANES ---
Post Anesthesia Evaluation Post Anesthesia Evaluation Date of Service: 03/19/24 Vital Signs: Vital Signs Temp Pulse Resp BP Pulse Ox O2 Del Method 03/19/24 10:50 97 F 65 16 147/71 H 98 Room Air 03/19/24 10:35 73 16 121/63 98 Room Air 03/19/24 10:20 96 F L 75 16 110/42 L Room Air 03/19/24 07:57 98.5 F 89 20 126/75 97 Room Air Anesthesia: Monitored Mental Status: Awake Pain Control: Satisfactory Nausea/Vomiting: None Hydration: Adequate Anesthesia-Related Issues: No Anes. Related Issues
== END 2024-03-19 11:42 | disposition home or self-care (01) ==
PROVIDERS: PCP Internal Medicine; Visit Provider Internal Medicine Gastroenterology
PROC: (CPT 45380; principal; 2024-03-19 09:10)
DX: K62.5 Hemorrhage of anus and rectum (principal); Z86.010 Personal history of colon polyps; R19.7 Diarrhea, unspecified; K57.30 Diverticulosis of large intestine without perforation or abscess without bleeding; K64.8 Other hemorrhoids; R93.3 Abnormal findings on diagnostic imaging of other parts of digestive tract; I10 Essential (primary) hypertension; E11.9 Type 2 diabetes mellitus without complications; E78.5 Hyperlipidemia, unspecified; I48.0 Paroxysmal atrial fibrillation; I49.3 Ventricular premature depolarization; R32 Unspecified urinary incontinence; L40.50 Arthropathic psoriasis, unspecified; G47.33 Obstructive sleep apnea (adult) (pediatric); Z79.01 Long term (current) use of anticoagulants; Z79.4 Long term (current) use of insulin; Z79.84 Long term (current) use of oral hypoglycemic drugs; Z79.899 Other long term (current) drug therapy; Z91.041 Radiographic dye allergy status; Z90.49 Acquired absence of other specified parts of digestive tract; Z98.890 Other specified postprocedural states; Z87.891 Personal history of nicotine dependence
CPT/HCPCS: 45380; 43239; 82947; 88305; 88313; 88342; J2704

== ENCOUNTER 2024-06-03 14:12 | Outpatient (REF) | payer MEDICARE, SELFPAY ==
[2024-06-03 14:52] LABS: Appearance Urine Turbid; Color Urine Yellow; Glucose Urine UA Negative (Negative); Leukocyte Esterase Urine Large (3+) (Negative); Nitrite Urine Negative (Negative); Specific Gravity - Urine 1.015 (1.005-1.025); UMIC TRIGGER UA YES; Urine Blood Small (1+) (Negative); Urine Ketones Negative (Negative); Urine Protein 30 (1+) mg/dL (Neg-Trace)
[2024-06-03 14:59] LABS: Bacteria Urine 4+ (None Seen); Hyaline Casts Urine 0-2 /LPF (0-2); Squamous Epithelial Cell Urine 0-2 /HPF (0-2); WBC Urine >50 /HPF (0-5)
== END 2024-06-03 14:13 | disposition home or self-care (01) ==
LOC: HO.LAB 14:12
PROVIDERS: PCP Internal Medicine; Visit Provider Urology
DX: N39.0 Urinary tract infection, site not specified (principal); N32.81 Overactive bladder; N31.9 Neuromuscular dysfunction of bladder, unspecified
CPT/HCPCS: 81001; 87086; 87088; 87186

== ENCOUNTER 2024-08-02 14:51 | Outpatient (AMB) | payer MEDICARE, SELFPAY ==
--- NOTE | 2024-08-02 14:57 | A.OFFVIS_ITS ---
Intake Visit Reasons: Urinalysis Check Intake Note: Patient is present for URINALYSIS CHECK Urology Medication:ESTRADIOL Antibiotic Allergy:NONE Blood Thinner:APIXABAN Senior Energy Analyst Required: No Allergies Iodinated Contrast Media [IVP DYE] Allergy (Intermediate, Verified 08/02/24 14:57) HIVCARLOS MANUEL POSADA Comments Details: 11/13/23--- Amanda is a 68-year-old female who complains of lower urinary tract symptoms of hesitancy and urgency. She has had recurrent UTIs. She she has been followed by Dr. Ly last seen about a year ago 12/06/2022. Co-morbidities diabetes and immunosuppressive therapy for arthritis. She has had prior surgeries including prolapse repair with vaginal sling [address] Crow. And in review of Dr. Ly's notes, indication of prior InterStim. She is here to discuss further evaluation with urodynamics. She has been on vaginal estrogen therapy, prescribed Estrace cream. Urinalysis negative for blood, 1+ leukocytes. She denies dysuria or UTI symptoms. Will schedule urodynamics for further evaluation, voiding dysfunction. [facility] Medical History Hx of sleep apnea Elevated cholesterol PAF (paroxysmal atrial fibrillation) Hypothyroidism Dislocated patella PONV (postoperative nausea and vomiting) Osteoarthritis Psoriatic arthritis Hx of skin cancer, basal cell Diabetes ADD (attention deficit disorder) PVC (premature ventricular contraction) Surgical History Hx of colonoscopy History of bilateral knee arthroplasty Hx of LASIK H/O cystoscopy H/O knee surgery History of colon resection H/O abdominoplasty History of bladder surgery H/O: section Social History Patient Tobacco Use Status: Former Tobacco user Results AMB Urinalysis, Automated UA Leukoctes 15 Akilah/uL Last Edit by JEFFREY Real on 08/02/24 15:09 UA Nitrite Negative Last Edit by JEFFREY Real on 08/02/24 15:09 UA Urobilinogen 0.2 mg/dL Last Edit by JEFFREY Real on 08/02/24 15:0 9 UA Protein 15 mg/dL Last Edit by JEFFREY Real on 08/02/24 15:09 UA pH 5.5 Last Edit by JEFFREY Real on 08/02/24 15:09 UA Blood 0 Edilberto/uL Last Edit by JEFFREY Real on 08/02/24 15:09 UA Specific [place] 1.030 Last Edit by JEFFREY Real on 08/02/24 15: 09 UA Ketone Negative Last Edit by JEFFREY Real on 08/02/24 15:09 UA Bilirubin 0 mg/dL Last Edit by JEFFREY Real on 08/02/24 15:09 UA Glucose 0 mg/dL Last Edit by JEFFREY Real on 08/02/24 15:09 Results Reviewed Results Reviewed: Laboratory Last Values Urine pH (Auto) 5.5 08/02/24 15:08 Specific [place] (Auto) 1.030 08/02/24 15:08 Urine Protein (Auto) 15 mg/dL 08/02/24 15:08 Glucose (UA)(Auto) 0 mg/dL 08/02/24 15:08 Urine Ketones (Auto) Negative 08/02/24 15:08 Urine Blood (Auto) 0 Edilberto/uL 08/02/24 15:08 Urine Nitrite (Auto) Negative 08/02/24 15:08 Urine Bilirubin (Auto) 0 mg/dL 08/02/24 15:08 Urine Urobilinogen (Auto) 0.2 mg/dL 08/02/24 15:08 Leukocyte Esterase (Auto) 15 Akilah/uL 08/02/24 15:08 Assessment & Plan Assessment & Plan (1) Overactive bladder: Code(s): N32.81 - Overactive bladder Category: Medical Orders: Orders AMB Urinalysis Automated Today Z13.9 - Encounter for screening, unspecified Medications: New amitriptyline 25 mg PO BEDTIME 30 days 30 tabs 1RF N30.10 - Interstitial cystitis (chronic) without hematuria, N32.81 - Overactive bladder Coding Diagnoses Overactive bladder N32.81
== END 2024-08-02 15:56 | disposition home or self-care (01) ==
PROVIDERS: PCP Internal Medicine; Visit Provider Urology
DX: Z13.9 Encounter for screening, unspecified (principal)

== ENCOUNTER → 2024-08-02 14:51 | Outpatient (BNVA) | payer MEDICARE, SELFPAY | PROVIDERS: PCP Internal Medicine; Visit Provider Urology | DX: N32.81 Overactive bladder (principal) | CPT/HCPCS: 81003; 99212 ==

== ENCOUNTER 2024-09-12 11:33 | Outpatient (REF) | payer MEDICARE, SELFPAY ==
[2024-09-12 12:49] LABS: Appearance Urine Cloudy; Color Urine Yellow; Glucose Urine UA Negative (Negative); Leukocyte Esterase Urine Large (3+) (Negative); Nitrite Urine Negative (Negative); PH 5.5 (5.0-9.0); UMIC TRIGGER UA YES; Urine Blood Negative (Negative); Urine Ketones Negative (Negative); Urine Protein Negative (Neg-Trace)
[2024-09-12 13:02] LABS: Bacteria Urine 4+ (None Seen); Hyaline Casts Urine 0-2 /LPF (0-2); RBC Urine 0-2 /HPF (0-2); Squamous Epithelial Cell Urine 0-2 /HPF (0-2); WBC Urine >50 /HPF (0-5)
--- OUTSIDE RECORDS SUMMARY | 2024-09-12 14:03 | XMS_ITS | Encounter Summary ---
Author Organization [facility] Address [address] [place] [address] Care Team Providers Care Node Js Developer Name Role Phone Azam Parekh Primary Care Provider [phone] Papo Dominguez APRN Unavailable Unavailabl e Vishal Schuler Unavailable Unavailable Encounter Details Date Type Department Care Team (Late st Contact Info) Description 06/06/2019 Scanned Document [facility] Endocrinology [address] [place] [phone] Papo Dominguez APRN Social History Tobacco Use Types Packs/Day Years Used Date Smoking Tobacco: Former Cigarettes Smokeless Tobacco: Former Alcohol Use Standard Drinks/Week Comments Yes 0 (1 standard drink = 0.6 oz pur e alcohol) Sex and Gender Information Value Date Recorded Sex Assigned at Not on file Gender Identity Not on file Sexual Orientation Not on file documented as of this encounter Plan of Treatment Not on file documented as of this encounter Visit Diagnoses Not on filedocumented in this encounter Care Teams Node Js Developer Relationship Specialty Start Date End Date Azam Parekh [address] [facility] 2 [place] [address] PCP - General 04/24/19 Papo Dominguez APRN [address] [facility] 2 [place] [address] Nurse Practitioner Endocrinology 05/09/19 Vishal Schuler [address] [facility] 205 [place] [address] Physician Ophthalmology 05/09/19 documented as of this encounter
--- OUTSIDE RECORDS SUMMARY | 2024-09-12 14:03 | XMS_ITS | Encounter Summary ---
Author Organization [facility] Address [address] [place] [address] Care Team Providers Care Bobbin Handler Name Role Phone Azam Parekh Primary Care Provider [phone] Papo Dominguez APRN Unavailable Unavailabl e Vishal Schuler Unavailable Unavailable Encounter Details Date Type Department Care Team (Late st Contact Info) Description 08/08/2019 Scanned Document [facility] Endocrinology [address] [place] [phone] Papo Dominguez APRN Social History Tobacco Use [...] on filedocumented in this encounter Care Teams Bobbin Handler Relationship Specialty Start Date End Date Azam Parekh [address] [facility] 2 [place] [address] PCP - General 04/24/19 Papo Dominguez APRN [address] [facility] 2 [place] [address] Nurse Practitioner Endocrinology 05/09/19 Vishal Schuler 8900 [facility] 205 [place] [address] Physician Ophthalmology 05/09/19 documented as of this encounter
--- OUTSIDE RECORDS SUMMARY | 2024-09-12 14:03 | XMS_ITS | Encounter Summary ---
Author Organization [facility] Address [address] [place] [address] Care Team Providers Care Rn Liaison Name Role Phone Azam Parekh Primary Care Provider [phone] Papo Dominguez APRN Unavailable Unavailabl e Vishal Schuler Unavailable Unavailable Encounter Details Date Type Department Care Team (Late st Contact Info) Description 06/06/2019 Scanned Document [facility] Endocrinology [address] [place] [address] [phone] Papo Dominguez APRN Social History Tobacco Use [...] on filedocumented in this encounter Care Teams Rn Liaison Relationship Specialty Start Date End Date Azam Parekh [address] [facility] 2 [place] [address] PCP - General 04/24/19 Papo Dominguez APRN 237 [facility] 2 [place] [address] Nurse Practitioner Endocrinology 05/09/19 Vishal Schuler 89[address] [facility] 205 [place] [address] Physician Ophthalmology 05/09/19 documented as of this encounter
--- OUTSIDE RECORDS SUMMARY | 2024-09-12 14:03 | XMS_ITS | Encounter Summary ---
Author Organization [facility] Address [address] [place] [address] Care Team Providers Care Surfacer Operator Name Role Phone Azam Parekh Primary Care Provider [phone] Papo Dominguez APRN Unavailable Unavailabl e Vishal Schuler Unavailable Unavailable Encounter Details Date Type Department Care Team (Late st Contact Info) Description 06/06/2019 Scanned Document [facility] Endocrinology [address] [place] [address] [phone] Papo Dominguez APRN Social History Tobacco Use [...] on filedocumented in this encounter Care Teams Surfacer Operator Relationship Specialty Start Date End Date Azam Parekh [address] [facility] 2 [place] [address] PCP - General 04/24/19 Papo Dominguez APRN 237 [facility] 2 [place] [address] Nurse Practitioner Endocrinology 05/09/19 Vishal Schuler [address] [facility] 205 [place] [address] Physician Ophthalmology 05/09/19 documented as of this encounter
--- OUTSIDE RECORDS SUMMARY | 2024-09-12 14:04 | XMS_ITS | Encounter Summary ---
Author Organization [facility] Address [address] [place], [place] [address] Care Team Providers Care Dental Detail Representative Name Role Phone Azam Parekh Primary Care Provider [phone] Papo Dominguez BELLOWS TESTER Unavailable Unavailabl e Vishal Schuler Unavailable Unavailable Reason for Visit * Reason Comments Medication Refill Encounter Details Date Type Department Care Team (Late st Contact Info) Description 11/17/2019 Refill [facility] Endocrinology [address] [phone] Papo Dominguez APRN Type 2 diabetes mellitus with hyperglycemia, without long-term current use of insulin (HCC) Social History Tobacco Use Types Packs/Day Years [...] documented as of this encounter Visit Diagnoses Diagnosis Type 2 diabetes mellitus with hyperglycemia, without long-term current use of insulin (HCC) documented in this encounter Care Teams Dental Detail Representative Relationship Specialty Start Date End Date Azam Parekh [address] [facility] [place] 2 [place] [address] PCP - General 04/24/19 Papo Dominguez APRN [address] [facility] [place] [address] [place] [address] Nurse Practitioner Endocrinology 05/09/19 Vishal Schuler 6[address] [facility] 205 [place] [address] Physician Ophthalmology 05/09/19 documented as of this encounter
--- OUTSIDE RECORDS SUMMARY | 2024-09-12 14:04 | XMS_ITS | Encounter Summary ---
Author Organization [facility] Address [address] [place] [address] Care Team Providers Care Winery Cellar Hand Name Role Phone Azam Parekh Primary Care Provider [phone] Papo Dominguez ASSISTANT FINANCIAL ACCOUNTANT Unavailable Unavailabl e Vishal Schuler Unavailable Unavailable Reason for Visit * Reason Comments Medication Refill Encounter Details Date Type Department Care Team (Late st Contact Info) Description 04/09/2020 Refill [facility] Endocrinology [address] [phone] Papo Dominguez APRN Type 2 diabetes mellitus [...] on file Sexual Orientation Not on file COVID-19 Exposure Response Date Recorded In the last month, have you been in contact with someone who was confirmed or suspected to have Coronavirus / COVID-19? No / Unsure 03/12/2020 11:42 AM EDT documented as of this encounter Plan of Treatment Not on file documented as of this encounter Visit Diagnoses Diagnosis Type 2 diabetes mellitus with hyperglycemia, without long-term current use of insulin (HCC) documented in this encounter Care Teams Winery Cellar Hand Relationship Specialty Start Date End Date Azam Parekh [address] [place] [address] [place] [address] [place] [address] PCP - General 04/24/19 Papo Dominguez APRN [address] [facility] [place] 2 [place] [address] Nurse Practitioner Endocrinology 05/09/19 Vishal Schuler [address] [facility] [place] [address] [place] [address] Physician Ophthalmology 05/09/19 documented as of this encounter
--- OUTSIDE RECORDS SUMMARY | 2024-09-12 14:04 | XMS_ITS ---
Author Organization [facility] Address [address] [place] [address] Care Team Providers Care Golf Coach Name Role Phone Azam Parekh MD Primary Care Provider Unavailab nestor Juarez Irene Unavailable [phone] REASON FOR VISIT RS 02/16/24 appt Encounters Encounter Location Date Provider Diagnosis [facility] [address] [place] [phone] 01/31/2024 Irene Juarez Plan Of Treatment Next Appt Details Provider Name:Irene Bowen Larry , 04/02/2025 08:00:00 AM, [address] [facility], [place], [address], Progress Notes * Erika TRANOB:1955 (68 yo F)Acc No.[id number]:01/31/2024 Patient:?Ernie Trnaon :1955???Age:68 Y???Sex:Female Address:[address] [place] [address], [address] * true * Date:? Generated for Printi leonarda/Lakshmi/eTransmitting on:?09/12/2024 02:04 PM EST
--- OUTSIDE RECORDS SUMMARY | 2024-09-12 14:04 | XMS_ITS | Encounter Summary ---
Author Organization [facility] Address [address] [place] [address] Care Team Providers Care Product Marketing Consultant Name Role Phone Azam Parekh Primary Care Provider [phone] Papo Dominguez MUSHROOM SPAWN MAKER Unavailable Unavailabl e Vishal Schuler Unavailable Unavailable Encounter Details Date Type Department Care Team (Late st Contact Info) Description 08/27/2021 Scanned Document [address] [place] [phone] Provider, Generic Social History Tobacco Use Types Packs/Day Years [...] on filedocumented in this encounter Care Teams Product Marketing Consultant Relationship Specialty Start Date End Date Azam Parekh [address] [facility] [place] [address] [place] [address] PCP - General 04/24/19 Papo Dominguez APRN [address] [facility] [place] [address] [place] [address] Nurse Practitioner Endocrinology 05/09/19 Vishal Schuler 89[address] [facility] [place] [address] [place] [address] Physician Ophthalmology 05/09/19 documented as of this encounter
--- OUTSIDE RECORDS SUMMARY | 2024-09-12 14:04 | XMS_ITS | Patient Health Record ---
[facility] Roberto micha Parekh Address [address] [place] [address] Care Team Providers Care [employer] Name Role Phone Azam Parekh MD Primary Care Provider Unavailab AlvarezAltagraciae Unavailable [phone] Allergies Allergen (clinical drug ingredient) Drug/Non Drug Allergy documented on EMR Reaction Allergy Type Onset Date Status Iodinated contrast media (substance) Iodinated Diagnostic Agents Unknown Drug Allergy Active Results Component Value Reference Range Notes HEMOGLOBIN A1C (GLYCOHEMOGLO BIN) Reviewed date:04/03/2024 08:06:23 AM Interpretation: Performing Lab: Notes/Report: HEMOGLOBIN A1C % (HH) 7.2 Reason For Referral No Information Medications Medication SIG (Take, Route, Frequency, Duration) Notes Start Date End Date Status Levothyroxine Sodium 112 MCG 1 tablet in the morning on an empty stomach Orally Once a day Active metFORMIN HCl 1000 MG 1 tablet with a me al Orally Once a day Active HumaLOG Active Methotrexate 2.5 MG as directed Orally Not-Taking amLODIPine Besy-Benazepril HCl Active Toujeo Max SoloStar 300 UNIT/ML as directed Subcutaneous Active Simponi Aria Active dilTIAZem HCl 30 MG as directed Orally Active Eliquis 5 MG 1 tablet Orally Twic e a day Active Atorvastatin Calcium 40 MG 1 tablet Orally Once a day Active Ammonium Lactate 12 % 1 application Externally to feet except for between the toes Twice a day for 30 days Active buPROPion HCl ER (XL) 300 MG 1 tablet in the morning Orally Once a day Active Immunizations Vaccine Route Administration Date Status Comme nts Influenza Unknown 04/21/2022 Administered Social History Tobacco Use: Social History Observation Description Date Details (start date - stop date) Former Smoker NA - NA Tobacco Use/Smoking Question Answer Notes Are you a: former smoker Additional Findings: Tobacco Non-User Current no n-smoker Alcohol Screen Question Answer Notes Did you have a drink containing alcohol in the p ast year? No Points 0 Interpretation Negative Tobacco use other than smoking: Question Answer Notes Are you an other tobacco user? No Problems Problem Type SNOMED Code ICD Code Onset Dates Problem Status W/U Status Risk Notes Problem Polyneuropathy due to type 2 diabetes mellitus (613374088) Type 2 diabetes mellitus with diabetic polyneuropathy (E11.42) Active confirmed Problem Acquired hammer toe of right foot (5745922537782337 ) Hammer toe of right foot (M20.41) Active confirmed Problem Acquired hammer toe of left foot (0796418004027973 ) Hammer toe of left foot (M20.42) Active confirmed Problem Ulcer of foot (29127307) Ulcer of left foot, limited to breakdown of skin (L97.521) Active confirmed Problem Ulcer of foot (30784239) Neuropathic ulcer of left foot with fat layer exposed (L97.522) Active confirmed Response to treatment, Nonapplica ble Vital Signs Height 5ft 10 in in 04/03/2024 Weight 180 lbs 04/03/2024 BMI 25.82 kg/m2 04/03/2024 Procedures Procedure Date Ordered Date Performed Result Body Sit e 53292-WUOC SKIN LESIONS, OVER 4 04/03/2024 N/A Encounters Encounter [facility] Date [facility] [address] 04/03/2024 Irene Larry Type 2 diabetes jerod itus with diabetic polyneuropathy E11.42 ; Neuritis M79.2 ; Hammer toe of left foot M20.42 ; Hammer toe of right foot M20.41 and Xerosis of skin L85.[address] [facility] [address] 01/31/2024 Irene Black Assessments Encounter Date Diagnosis (ICD Code) Assessment Notes Treatment Notes Treatment Clinical Notes Section Notes 04/03/2024 Type 2 diabetes mellitus with diabetic polyneuropathy (ICD-10 - E11.42) Patient Educated with: DIABETIC FOOT CARE INSTRUCTIONS. pdf (DIABETIC FOOT CARE INSTRUCTIONS. pdf) 04/03/2024 Neuritis (ICD-10 - M79.2) 04/03/2024 Hammer toe of left foot (ICD-10 - M20.42) 04/03/2024 Hammer toe of right foot (ICD-10 - M20.41) 04/03/2024 Xerosis of skin (ICD-10 - L85.3) Plan Of Treatment Pending Test Test Name Order Date 57469- Debride <25 sq cm 03/17/2023 31094-OKGQBYH SKIN/TISSUE 03/01/2023 31729-DXIU SKIN LESIONS, OVER 4 04/03/20 24 Next Appt Details Provider Name:Irene Bowen Larry , 04/02/2025 08:00:00 AM, [address] [facility], [place], [address], Insurance Providers Payer Name Payer Address Payer Phone Subscriber Number Group Number Insured Name Patient Relationship to Insured Coverage Start Date Coverage End Date [employer] [address] [place] [address] [phone] [id number] Amanda Villalba Self - patient is the insured Medical (General) History Medical History History ICD Code Arthritis Cancer Cataracts Depression Diabetic Joint implants/screws High blood pressure Psoriasis Tuberculosis Headaches/Migraines Sleep apnea Surgical History Surgery Date(Month/Year) knee replacement colon resection fistula repair abdominoplasty cataract surgery
--- OUTSIDE RECORDS SUMMARY | 2024-09-12 14:04 | XMS_ITS ---
Author Organization [facility] Address [address] [facility] [address] [place] [address] Care Team Providers Care Upholstery Technician Name Role Phone Azam Parekh MD Primary Care Provider Unavailab Jaquan Gomez Jr REASON FOR VISIT pathology MEDICATIONS Medication SIG (Take, Route, Fr equency, Duration) Notes Start Date End Date Status Omeprazole 20 MG 1 capsule 30 minutes before morning meal Orally Once a day for 30 day(s) 03/27/2024 Active Encounters Encounter Location Date Provider Diagnosis [facility] [address] [place] [address] [address] [place] [address] 03/27/2024 Jaquan Daniel Jr PLAN OF TREATMENT Medication Medication Name Sig Start Date Stop Date Notes Omeprazole 20 MG 1 capsule 30 minutes before morning meal Orally Once a day for 30 day(s) 03/27/2024 Next Appt Details Provider Name:Jaquan pierce Jr, 09/26/2024 01:55:00 PM, [address] [place] [address], [address], [place], [address],
--- OUTSIDE RECORDS SUMMARY | 2024-09-12 14:04 | XMS_ITS | Encounter Summary ---
Author Organization [facility] Address [address] [place] [address] Care Team Providers Care Printer [employer] Name Role Phone Azam Parekh Primary Care Provider [phone] Papo Dominguez APRN Unavailable Unavailabl e Vishal Schuler Unavailable Unavailable Encounter Details Date Type Department Care Team (Late st Contact Info) Description 05/09/2019 Scanned Document [facility] Endocrinology [address] [place] [phone] Papo Dominguez APRN Social History Tobacco Use [...] on filedocumented in this encounter Care Teams [employer] Relationship Specialty Start Date End Date Azam Parekh [address] [facility] 2 [place] [address] PCP - General 04/24/19 Papo Dominguez APRN [address] [facility] [address] [place] [address] Nurse Practitioner Endocrinology 05/09/19 Vishal Schuler [address] [facility] [address] [place] [address] Physician Ophthalmology 05/09/19 documented as of this encounter
--- OUTSIDE RECORDS SUMMARY | 2024-09-12 14:04 | XMS_ITS | Encounter Summary ---
Author Organization [facility] Address [address] [place] [address] Care Team Providers Care Rivet Hole Machine Operator Name Role Phone Azam Parekh Primary Care Provider [phone] Papo Dominguez APRN Unavailable Unavailabl e Vishal Schuler Unavailable Unavailable Encounter Details Date Type Department Care Team (Late st Contact Info) Description 03/12/2020 Scanned Document [facility] Endocrinology [address] [phone] Papo Dominguez APRN Social History Tobacco Use [...] on filedocumented in this encounter Care Teams [employer]et [employer] Machine Operator Relationship Specialty Start Date End Date Azam Parekh [address] [facility] 2 [place] [address] PCP - General 04/24/19 Papo Dominguez APRN [address] [facility] [address] [place] [address] Nurse Practitioner Endocrinology 05/09/19 Vishal Schuler [address] [facility] [address] [place] [address] Physician Ophthalmology 05/09/19 documented as of this encounter
--- OUTSIDE RECORDS SUMMARY | 2024-09-12 14:04 | XMS_ITS ---
[facility] Organization [facility] [place] Address [address] [place] [address] Care Team Providers Care Accounts Payables Clerk Name Role Phone Azam Parekh MD Primary Care Provider UnavailIrene Mccann Unavailable [phone] Allergies Allergen (clinical drug ingredient) Drug/Non Drug Allergy documented on EMR Reaction Allergy Type Onset Date Status Iodinated contrast media (substance) Iodinated Diagnostic Agents Unknown Drug Allergy Active REASON FOR VISIT At Risk Footcare, Foot pain, Skin problem(s) Medications Medication SIG (Take, Route, Frequency, Duration) Notes Start Date End Date Status Levothyroxine Sodium 112 MCG 1 tablet in the morning on an empty stomach Orally Once a day Active metFORMIN HCl 1000 MG 1 tablet with a me al Orally Once a day Active Methotrexate 2.5 MG as directed Orally Not-Taking Toujeo Max SoloStar 300 UNIT/ML as directed Subcutaneous Active Simponi Aria Active HumaLOG Active dilTIAZem HCl 30 MG as directed Orally Active Eliquis 5 MG 1 tablet Orally Twic e a day Active Atorvastatin Calcium 40 MG 1 tablet Orally Once a day Active buPROPion HCl ER (XL) 300 MG 1 tablet in the morning Orally Once a day Active amLODIPine Besy-Benazepril HCl Active Ammonium Lactate 12 % 1 application Externally to feet except for between the toes Twice a day for 30 days Active Social History Tobacco Use: Social History Observation [...] Are you an other tobacco user? No Vital Signs Height 5ft 10 in in 04/03/2024 Weight 180 lbs 04/03/2024 BMI 25.82 kg/m2 04/03/2024 Procedures Procedure Date Ordered Date Performed Result Body Sit e 16387-NOBH SKIN LESIONS, OVER 4 04/03/2024 N/A Encounters Encounter Location Date [facility] [address] [place] [address] 04/03/2024 Irene Juarez Type 2 diabetes jerod itus with diabetic polyneuropathy E11.42 ; Neuritis M79.2 ; Hammer toe of left foot M20.42 ; Hammer toe of right foot M20.41 and Xerosis of skin L85.3 Assessments Encounter Date Diagnosis (ICD Code) Assessment [...] skin (ICD-10 - L85.3) Plan Of Treatment Medication Medication Name Sig Start Date Stop Date Notes Ammonium Lactate 12 % 1 application Exte rnally to feet except for between the toes Twice a day for 30 days Treatment Notes Assessment Notes Type 2 diabetes mellitus wit h diabetic polyneuropathy Patient Educated with: DIABETIC FOOT CARE INSTRUCTIONS.pdf (DIABETIC FOOT CARE INSTRUCTIONS.pdf) Pending Test Test Name Order Date 68576-QPDK SKIN LESIONS, OVER 4 04/03/20 24 Next Appt Details Follow Up: 1 Year, Reason: Provider Name:Irene Bowen Larry , 04/02/2025 08:00:00 AM, [address], [place], [address], Procedure Notes * Category Sub-Category Detail Notes Keratoma Treatment Parring or Cutting o f Benign Hyperkeratotic Lesion(s) (-57) More than 4 Lesions - The Benign hyperkeratotic lesions, as described above were pared, and/or cut utilizing a sterile 15 blade, tissue nippers, and/or dremel - 78610 Progress Notes * Erika TRANOB:1955 (68 yo F)Acc No.[id number]:04/03/2024 Progress Note Patient:Amanda Wang Provider:?Irene Juarez DPM :1955???Age:68 Y???Sex:Female D ate:04/03/2024 Address:[address] [place], [place] [id number] Pcp:Azam Parekh MD Subjective: * Chief Complaints: * ???At Risk FootcareFoot pain Skin problem(s) * HPI: ???Foot Pain:?Nature:?tingling.?Location:?B/L.?Duration:?several years.?Onset:?sudden , denies trauma.?Course:?worse.?Aggravated:?no known aggrevating factors.?Treatments:?none.?Severity/Quality:?mild , moderate.?Skin problems:?Nature:?dryness , scaling.?Location:?B/L .?Duration:?several days.?Course:?worse.?At Risk footcare:?Pt States Last PCP Visit:?Date?11/29/2023 ???Toe pain:?Location:?B/L feet.?Aggravated by:?shoes, any pressure.? * ROS:?General/Constitutional:?Nausea?denies.?Vomiting?denies.?Hunger Thirst?denies.?Loss appetite?denies.?Chills?denies.?Fatigue?admits.?Fever?denies.?Night Sweats?denies.?Unexplained weight loss?denies.?Unexplained weight gain?denies.?HEENTM:?Dentures?denies.?Dizziness?denies.?Glasses/contacts?denies.?Retinopathy?de nies.?Blurred/double vision?admits.?TMJ?denies.?Discharge/drainage?denies.?Implants?denies.?Sore throat?denies.?Dental implants?denies.?Hard of hearing ?denies.?Difficulty chewing/swallowing/speaking?denies.?Nose bleeds?denies.?Sore mouth?denies.?Respiratory:?On Oxygen?denies.?Pneumonia/pleurisy?denies.?Bronchitis?denies.?Emphysema?denies.?C oughing?denies.?Cough blood?denies.?Shortness of breath?denies.?Wheezing?denies.?Cardiovascular:?Pacemaker?admits.?MVP?denies.?WPW?denies.?CHF?denies.?Heart attack?denies.?Septal defect?denies.?Rapid beat?denies.?Chest pain ?denies.?Atrial Fib.?admits.?Murmur/Palpitations?denies.?Gastrointestinal:?Hemorrhoids?denies.?Stomach/Abdominal pain?denies.?Dark blood stool?denies.?Irritable bowel ?denies.?Constipation?denies.?Diarrhea?denies.?Hematology:?Swelling?denies.?Clots?denies.?Varicose Veins?admits.?Bruising?denies.?Bleeding problem?denies.?Genitourinary:?Blood urine?denies.?Frequent/Painfu/urination/bladder control?admits.?Kidney stones?denies.?Infection (UTI)?denies.?Nephropathy?denies.?sex trans dis (STD)?denies.?Prostate?denies.?Musculoskeletal:?Hammertoes?denies.?Bunions?denies.?Back Pain?admits.?Muscle Cramps/ Resting?denies.?Muscle cramps / walking?denies.?Generalized aches and pains?admits.?Weakness?denies.?Integ.:?Davey?denies.?Scars?admits.?Corns/calluses?denies.?Ingrown nails?denies.?Painful nails?denies.?Open Sores?denies.?Rashes?denies.?Neurologic:?Difficulty sleeping?denies.?Brain disorder?denies.?Numbness?denies.?Balance trouble?admits.?Confusion?denies.?Fainting/blackouts?denies.?Tingling?admits.?Tr emors?denies.? * Medical History:? * Surgical History:?knee repla cement colon resection fistula repair abdominoplasty cataract surgery * Hospitalization/Major Diagno stic Procedure:?No Hospitalization History. * Family History:?Mother: dece ased, cancer.?Father: , heart attack, diagnosed with Family history of arthritis.?Maternal Grand Mother: diagnosed with Diabetic - NIDDM.?Siblings: diagnosed with Diabetic - NIDDM.? * Social History:?Tobacco Use:?Tobacco Use/Smoking?Are you a:?former smoker ?Additional Findings: Tobacco Non-User?Current non-smoker ?Tobacco use other than smoking?Are you an other tobacco user??No ???Drugs/Alcohol:?Drugs?Have you used drugs other than those for medical reasons in the past 12 months??No ?Alcohol Screen?Did you have a drink containing alcohol in the past year??No ?Points?0 ?Interpretation?Negative ???Miscellaneous:?Caffeine: yes, frequency:, 1-2 cups per day. ?Exercise: yes, Reading. ?Marital status: . ?Occupation: Retired [employer]. * Medications:?TakingamLODIPin e Besy-Benazepril HCl Atorvastatin Calcium 40 MG Tablet 1 tablet Orally Once a daybuPROPion HCl ER (XL) 300 MG Tablet Extended Release 24 Hour 1 tablet in the morning Orally Once a daydilTIAZem HCl 30 MG Tablet as directed Orally Eliquis 5 MG Tablet 1 tablet Orally Twice a dayHumaLOG Levothyroxine Sodium 112 MCG Tablet 1 tablet in the morning on an empty stomach Orally Once a daymetFORMIN HCl 1000 MG Tablet 1 tablet with a meal Orally Once a dayToujeo Max SoloStar 300 UNIT/ML Solution Pen-injector as directed Subcutaneous Simponi Aria Taking amLODIPine Besy-Benazepril HCl Taking Atorvastatin Calcium 40 MG Tablet 1 tablet Orally Once a dayTaking buPROPion HCl ER (XL) 300 MG Tablet Extended Release 24 Hour 1 tablet in the morning Orally Once a dayTaking dilTIAZem HCl 30 MG Tablet as directed Orally Taking Eliquis 5 MG Tablet 1 tablet Orally Twice a dayTaking HumaLOG Taking Levothyroxine Sodium 112 MCG Tablet 1 tablet in the morning on an empty stomach Orally Once a dayTaking metFORMIN HCl 1000 MG Tablet 1 tablet with a meal Orally Once a dayTaking Toujeo Max SoloStar 300 UNIT/ML Solution Pen-injector as directed Subcutaneous Taking Simponi Aria Not-Taking/PRNMethotrexate 2.5 MG Tablet as directed Orally Medication List reviewed and reconciled with the patientNot-Taking/PRN Methotrexate 2.5 MG Tablet as directed Orally Medication List reviewed and reconciled with the patient * Allergies:?Iodinated Diagnos tic Agentsyes[Allergies Verified] Objective: * Vitals:?Ht:5ft 10 in, Wt:180 , BMI:25.82, Shoe size:9.5-10, BS:244, Ht-cm: 177.8 cm, Wt-k.65 kg. * ???Past Orders: ???Lab:HEMOGLOBIN A1C (GLYCO HEMOGLOBIN) (Order Date - 02/27/2024) (Collection Date - 02/27/2024) ? Value Reference Range ?HEMOGLOBIN A1C % (HH) 7.2 * Examination: ???Ophthalmology Referral: ?DIABETES EYE EXAM?Diabetic Retinopathy Screening:?Yes?General Examination: ?GENERAL APPEARANCE:?Reveals a pleasant, alert, well nourished, well- developed, well hydrated individual, who demonstrates proper attention to hygiene/body habitus, and is in no acute distress, Pt serves as own historian for office visit today.?ORIENTED:?person, place, and time.?FOOT EXAM:?Lower Extremity Neurological Exam performed:?Yes ?Visual exam of foot performed:?Yes ?Date?04/03/2024 ?Sensory testing performed:?sensations diminished ?Sensory and motor testing performed:?sensations diminished ?Pedal pulse taking performed:?2+?Vascular: ?DP PULSES(B):?2/4, B/L.?PT PULSES(B):?2/4 , B/L.?CAPILLARY FILL TIME:?immediate, all digits, B/L.?TROPHIC CONDITION-TEXTURE/ELASTICITY/TURGOR/HAIR GROWTH(B):?normal, B/L.?TEMPERTURE GRADIENT(C):?normal, warm to cool, proximal to distal, B/L, B/L.?PIGMENTATION:?, dusky toes b/l.?TELANGECTASIA:?present medial left midfoot.?Neurological: ?SENSORY:?Neurological exam demonstrates , reduced sharp/dull pin prick discrimination , reduced vibration sensation , 5.07 monofilament test performed at plantar aspects of 5 varied sites per foot shows sensation , reduced , at Forefoot , B/L , Pt relates , tingling , burning , numbness.?Orthopedic: ?MUSCLE STRENGTH:?5/5 all groups in a symmetrical fashion, B/L.?GAIT ABNORMALITY:?mild Pronated , abducted angle and base of gate.?FOOT MORPHOLOGY:?Pes Planus structure , Semi-flexible , B/L.?DIGITAL DEFORMITIES:?Digital contracture, PIPJ, 4,5 B/L, incompl-reducible with WB, or to push-up test, no over, nor underlapping.?Dermatologic: ?SKIN FINDINGS:?Skin shows sign(s) of, dryness, scaling, in a stocking fashion, no fissure(s) present, B/L , Skin exam reveals Keratotic lesion(s) located at , IPJ , TA , T5 , SUB MTH (s) , 1 , B/L , Heel(s) , B/L.? Assessment: * Assessment: 1.?Type 2 diabetes mellitus with diabetic polyneuropathy - E11.42?2.?Neuritis - M79.2 (Primary)?3.?Hammer toe of left foot - M20.42?4.?Hammer toe of right foot - M20.41?5.?Xerosis of skin - L85.3, Acute problem, Uncomplicated (3),Rx Management (4)? Plan: * Treatment: 2.?Xerosis of skin? Start Ammonium Lactate Cream, 12 %, 1 application, Externally to feet except for between the toes, Twice a day, 30 days, 140, Refills 2.?? * Procedures:?Keratoma Treatment:?Parring or Cutting of Benign Hyperkeratotic Lesion(s)?(-57) More than 4 Lesions - The Benign hyperkeratotic lesions, as described above were pared, and/or cut utilizing a sterile 15 blade, tissue nippers, and/or dremel - 13014.? * Procedure Codes:?58970 TRIM SKIN LESIONS, OVER 4, Modifiers: XS * Preventive Medicine:? ??Counseling:?Discussion:?-14: Office or other outpatient visit for the evaluation and management of an established patient, which required a medically appropriate history and/or examination and MODERATE level of DECISION MAKING for: 1 OR MORE CHRONIC PROBLEM(S) THATS WORSENING, 2 STABLE CHRONIC PROBLEMS, A NEWLY DIAGNOSED PROBLEM WITH UNCERTAIN PROGNOSIS, AN ACUTE COMPLICATED INJURY WITH MULTIPLE TREATMENT OPTIONS, OR AN ACUTE PROBLEM WITH ACCOMPANYING SYSTEMIC SYMPTOMS, THAT POSE(S) A MODERATE RISK OF MORBIDITY. THIS CONDITION MAY ALSO INCLUDE RX DRUG MANAGEMENT, OR A DECISON FOR MINOR SURGERY. The visit on the day of the encounter encompassed interpreting the data and educating the patient as to the nature of their condition, treatment options available according to their individual PMH, meds, allergies, and overall health/living conditions, as well as any potential risks or complications that may occur from a failure to adhere to, and participate in, the recommended course of therapy. The discussion included a complete verbal, and/or written explanation of the examination results, any x-rays taken, the proposed diagnosis, and outline of the treatment plan. A schedule for future care needs was also explained. The patient verbalized an understanding of the instructions at this time and agreed to be an active participant in their treatment. If the patient should think of any questions or concerns after the visit, I have encouraged the patient to call the office.?Digital Treatment:?HT- I explained to the patient the possible etiologies of Hammertoes, including genetics/foot type/shoegear/activity level/exercise routine and the risks/benefits of all the different treatment options for their pain including: No treatment at all, Rest, Ice, New/supportive/wider/deeper Shoegear, Digital Padding/Strapping/Taping/Bracing/Gel protective sleeves, Foot/Ankle AFO Bracing, Stretching exercises, Deep Tissue Massage, Arch support/shoe inserts with splay metatarsal padding, and Custom orthoses. I insisted that any digital devices be removed daily and not worn overnight for safety. The patient is to carefully examine the toes daily for any skin irritation while using any splinting or padding device. The advantages and disadvantages of each option were discussed and the patients questions re: shoegear, padding, custom vs prefabricated inserts, activity level, and consistency in home treatment regimens for optimal success were answered to their verbally confirmed satisfaction, Recomm, rest, ice, proper shoegear, padding, orthotics, anti-inflammatories or tylenol as tolerated, topical analgesics, cortisone injections.?Neuritis/Neuropathy:?The patient was counseled on the diagnosis, possible etiologies (including mechanical stress, injury, entrapment, chemotherapy, diabetes, vertebral disk herniation if hx), treatment options, and importance for adherence to recommendations in order to address the patients Neuritis/Neuropathy. The advantages and disadvantages re: Accomidative mechanical support/offloading, Topical vs PO analgesics including aspercream/Voltaren gel/Lidoderm patches/Neurontin/Lyrica along with their potential side effects were discussed with the patient to their satisfaction. Also discussed the use of therapeutic injectable cortisone if needed. Surgical treatment, if considered an option, was discussed as well. If surgery is warranted, we discussed the potential successful outcomes as well as the possible complications such as failure, painful scar, permanent tingling/numbness/neuralgea/or intractable pain. Patient questions re: medication use, dosage, and possible side effects and drug interactions were reviewed and the answers to each understood. If the condition worsens, the patient was instructed to contact the office for an appointment. The patient verbally confirmed a full understanding of the above, tight glycemic control, Recommended Topical analgesics including aspercream/Voltaren gel/Lidoderm patches.?Shoe Gear Counseling:?Recommend supportive running shoes for patient, discussed various shoe brands including Brownlee, Asics, New Balance, Saucony. Discussed types of shoes to avoid for patients foot type..?Xerosis:?The patient was counseled on the diagnosis, potential etiologies, and treatment options for their skin condition. We discussed the risks and benefits of each option from performing no treatment, to utilizing OTC topical skin creams/ointments, to utilizing prescription topical creams/ointments, to utilizing customized compounded topical medications and use of nocturnal occlusion with any/all previously detailed therapies. We discussed the advantages and disadvantages of each possible treatment and importance for adherence to all the recommended therapies for optimum success and avoid potential complications such as open sore/infection/possible hospitalization. We discussed the potential effectiveness of each topical preparation as well as each ones possible side effects and/or patient medication interactions. Patient questions re: use, dosage, successful outcomes, and application consistency were reviewed and the patient verbalized that all answers were clearly understood. The patient has decided to apply Rx skin creams to their feet save the interspaces while paying special attention to the heels. Such was sent to their pharmacy at the time of visit.? * Follow Up:?1 Year * Images: * Sign off status: Completed true * Provider:?Irene Juarez DPM Date:?2023 Generated for Vishal brower/Lakshmi/Clarice on:?09/12/2024 09:56 AM EST History and Physical Notes * HPI (History of Present Illness) Category Sub-Category Detail Notes Category Not es Toe pain Location: B/L feet Aggravated by: shoes, any pressure Skin problems Nature: dryness , scaling Location: B/L Duration: several days Course: worse At Risk footcare Pt States Last PCP Visit: Date: 4 Foot Pain Nature: tingling Location: B/L Duration: several years Onset: sudden , denies trau ma Course: worse Aggravated: no known aggrevating factors Treatments: none Severity/Quality: mild , moderate Examination Category Sub-Category Detail Notes Category Not es Neurological SENSORY: Neurological exa m demonstrates , reduced sharp/dull pin prick discrimination , reduced vibration sensation , 5.07 monofilament test performed at plantar aspects of 5 varied sites per foot shows sensation , reduced , at Forefoot , B/L , Pt relates , tingling , burning , numbness Dermatologic SKIN FINDINGS: Skin shows sign( s) of, dryness, scaling, in a stocking fashion, no fissure(s) present, B/L , Skin exam reveals Keratotic lesion(s) located at , IPJ , TA , T5 , SUB MTH (s) , 1 , B/L , Heel(s) , B/L Orthopedic GAIT ABNORMALITY: mild Pronated , abducted angle and base of gate FOOT MORPHOLOGY: Pes Planus structure , Semi-flexible , B/L DIGITAL DEFORMITIES: Digital contracture , PIPJ, 4,5 B/L, incompl-reducible with WB, or to push-up test, no over, nor underlapping MUSCLE STRENGTH: 5/5 all groups in a symmetrical fashion, B/L General Examination GENERAL APPEARANCE: Reveals a pleasant, alert, well nourished, well-developed, well hydrated individual, who demonstrates proper attention to hygiene/body habitus, and is in no acute distress, Pt serves as own historian for office visit today FOOT EXAM: Lower Extremity Neurological Exa m performed:: Yes Visual exam of foot performed:: Yes Date: 04/03/2024 Sensory testing performed:: sensations d iminished Sensory and motor testing performed:: se nsations diminished Pedal pulse taking performed:: 2+ ORIENTED: person, place, and t zaida Ophthalmology Referral DIABETES EYE EXAM Diabetic Retinopa thy Screening:: Yes Vascular DP PULSES (B): 2/4, B/L PT PULSES (B): 2/4 , B/L CAPILLARY FILL TIME: immediate, all digi ts, B/L TEMPERTURE GRADIENT (C): normal, warm to cool, proximal to distal, B/L, B/L TROPHIC CONDITION-TEXTURE/ELASTICITY/TURGOR/HAIR GROWTH (B): normal, B/L TELANGECTASIA: present medial left midfoot PIGMENTATION: , dusky toes b/l
--- OUTSIDE RECORDS SUMMARY | 2024-09-12 14:04 | XMS_ITS | Encounter Summary ---
Author Organization [facility] Address [address] [place] [address] Care Team Providers Care Learning Technologist Name Role Phone Azam Parekh Primary Care Provider [phone] Papo Dominguez APRN Unavailable Unavailabl e Vishal Schuler Unavailable Unavailable Encounter Details Date Type Department Care Team (Late st Contact Info) Description 11/13/2019 Scanned Document [facility] Endocrinology [address] [phone] Papo Dominguez APRN Social History Tobacco Use [...] on filedocumented in this encounter Care Teams Learning Technologist Relationship Specialty Start Date End Date Azam Parekh [address] [facility] [address] [place] [address] PCP - General 04/24/19 Papo Dominguez APRN [address] [facility] [address] [place] [address] Nurse Practitioner Endocrinology 05/09/19 Vishal Schuler [address] [address] Physician Ophthalmology 05/09/19 documented as of this encounter
--- OUTSIDE RECORDS SUMMARY | 2024-09-12 14:04 | XMS_ITS | Encounter Summary ---
Author Organization [facility] Address [phone] [place] [address] Care Team Providers Care White Lead Grinder Name Role Phone zAam Parekh MD Primary Care Provider [phone] Encounter Details Date Type Department Care Team (Late st Contact Info) Description 09/12/2024 10:00 AM EST Office Visit [facility] [address] [place] [phone] Zelda Gatica, MARKETING PRODUCTION SPECIALIST [address] [facility], 1st [place] [address] [email or web address] Type 2 diabetes mellitus with hyperglycemia, with long-term current use of insulin (Primary Dx); Primary hypertension; Hypothyroidism, unspecified type; Hyperlipidemia, unspecified hyperlipidemia type Social History Tobacco Use Types Packs/Day Years Used Date Smoking Tobacco: Former Cigarettes 0.5 15 0 10/01/1971 - 09/30/1986 Smokeless Tobacco: Never Alcohol Use Standard Drinks/Week Comments Not Currently 0 (1 standard drink = 0.6 oz pur e alcohol) Education Answer Date Recorded Are you interested in more education? Not on deepak e 11/12/2022 Are you concerned about learning? Not on file 11/12/2022 No 11/12/2022 No 11/12/2022 Digital Access Answer Date Recorded No 12/13/2022 No 12/13/2022 Reliable internet access at home? Not on file 12/13/2022 Device with a working camera? Not on file Sex and Gender Information Value Date Recorded Sex Assigned at Not on file Gender Identity Not on file Sexual Orientation Not on file documented as of this encounter Last Filed Vital Signs Vital Sign Reading Time Taken Comments Blood Pressure 120/72 09/12/2024 9:58 AM EST Pulse 81 09/12/2024 9:58 AM EST Temperature - - Respiratory Rate - - Oxygen Saturation - - Inhaled Oxygen Concentration - - Weight 88 kg (194 lb) 09/12/2024 9:58 AM EST Height 177.8 cm (5' 10 ) 09/12/2024 9:58 AM EST Body Mass Index 27.84 09/12/2024 9:58 AM EST documented in this encounter Patient Instructions * Patient Instructions* Zelda Gatica CNP - 09/12/2024 10:00 AM EST MEDICATIONS: Resume Trulicity, start at 0.75 mg, as long as you tolerate after 2 weeks, resume the 1.5 mg dosing(can take the last 2 pens of the 0.75 mg dose to equal 1.5 mg to use these up) Continue current insulin doses BLOOD TESTS: Today's A1c was 7.3% LIFESTYLE Diet: continue your efforts at healthy balanced eating Exercise: try to stay active as consistently as you can, 30 minutes of exercise on most days of theweek (averaging about 150 minutes of exercise per week) can be very helpful to overall wellbeing, blood sugar control and weight management FOLLOW UP: Please bring glucometer for download and/or blood sugar diary at next visit. Follow up in 56 months. Please call with any questions or concerns. documented in this encounter Progress Notes * Zelda Gatica CNP - 09/12/2024 10:00 AM EST Images from the original note were not included. Recent Labs: Lab Results Component Value Date CHOL 161 09/28/2021 HDL 58 09/28/2021 LDL 78 09/28/2021 No results found for: HGB , HCT , RDW TSH Date Value Ref Range Status 07/31/2019 2.61 0.40 - 4.50 mIU/L Final Lab Results Component Value Date ZKZL2UEYQ 7.3 (*) 09/12/2024 FCMC9LRBN 7.3 (*) 06/03/2024 [id number] 7.2 (*) 02/27/2024 GHBA1C 8.4 09/28/2021 GHBA1C 7.4 (H) 03/09/2020 GHBA1C 8.2 (H) 07/31/2019 Lab Results Component Value Date NA 139 09/30/2021 K 4.1 09/30/2021 CL 104 09/30/2021 CO2 25 09/30/2021 BUN 19 09/30/2021 CRE 0.60 09/30/2021 GLU 185 (H) 09/30/2021 ALB 4.5 09/30/2021 TP 7.2 09/30/2021 CA 9.9 09/30/2021 ALKP 72 09/30/2021 TBILI 1.2 09/30/2021 SGOT 21 09/30/2021 SGPT 23 09/30/2021 GLOB 2.7 09/30/2021 GFR 99 09/30/2021 ANION 14 09/30/2021 No results found for: [id number] , B12 No results found for: GRMALB , UCRE , MALBCRE Last DM Eye Exam: Date: Last year Last DM Foot Exam: Date: February 2024 Most Recent Immunizations Administered Date(s) Administered COVID-19 (Pre-05/08) Moderna Vaccine, Bivalent 6mo+ 08/11/2022 COVID-19 (Pre-05/08) Moderna Vaccine, mRNA, PF 05/11/2021 Subjective: Amanda Villalba is a 69 y.o. female who presents for a follow up evaluation of Type 2 diabetes mellitus HPI/current issues: Was on steroids for 3 weeks, has been off since last Monday Once started this, was noticing higher readings, has been taking more humalog and has some more dips Hasn't adjusted toujeo Was on trulicity, really good for 1 week, then started to seem less effective, increased to the next strength and this just didn't seem to help Too expensive to remain on this for not much benefit, has heard Ozempic is good for cardiac benefitand asks about this, has a fib so is concerned Has been on cpap for the past couple months This has helped a little with sleep Current blood sugar monitoring regimen: Irving CGM Glucose data reviewed: CGM was downloaded and reviewed with patient, scanned into chart, 2 week CGMaverage 1889 mg/dl, CV 29.1%, GMI 7.1%, time in range 71%, 180-250 25%, >250 3% remains in target range for much of the day, most consistent prandial rise tends to be in the afternoon, pattern of gradual rise in sugars from 12a-12pm Any episodes of hypoglycemia? none on current download Current diet: mostly low carb Current exercise: ADLs, yardwork, housework Prior visit with educator: yes - when first diagnosed Known diabetic complications: peripheral neuropathy Current diabetic medications include: Toujeo 18 units daily Humalog as needed, has been using more with recent steroid therapy Metformin 1000 mg once daily Current Outpatient Medications: amLODIPine-benazepril (LOTREL 5-10) 5-10 mg per capsule, Take by mouth., Disp: , Rfl: , Last Dispense: Unknown (patient-reported) atorvastatin (LIPITOR) 40 MG tablet, Take 40 mg by mouth daily., Disp: , Rfl: , Last Dispense: Unknown (patient-reported) cetirizine HCl (ZYRTEC ORAL), Zyrtec Take No date recorded No form recorded No frequency recorded No route recorded No set duration recorded No set duration amount recorded active No dosage strength recorded No dosage strength units of measure recorded, Disp: , Rfl: , Last Dispense: Unknown (patient-reported) ELIQUIS 5 mg tablet, Take 5 mg by mouth., Disp: , Rfl: , Last Dispense: Unknown (patient-reported) FREESTYLE IRVING 3 READER [facility], Use to continuously monitor blood sugars with the Irving 3 sensor, Disp: 1 each, Rfl: 0, Last Dispense: Unknown (outside pharmacy) FREESTYLE IRVING 3 SENSOR Bette, Use to continuously monitor blood sugars with FSL3 sofy, wear on the back of the upper arm, change every 14 days, Disp: 2 each, Rfl: 11, Last Dispense: Unknown (outside pharmacy) FREESTYLE LITE Strp strips, 1 each by Miscellaneous route 3 (three) times a day before meals. Use to check BG 3 times/day when not wearing Irving, Disp: 100 strip, Rfl: 3, Last Dispense: Unknown (outside pharmacy) golimumab (SIMPONI) 50 mg/0.5 mL pen, Inject 50 mg under the skin every 2 (two) months., Disp: , Rfl: , Last Dispense: Unknown (patient-reported) HUMALOG KWIKPEN INSULIN 200 unit/mL (3 mL) InPn subcutaneous pen, INJECT 4-14 UNITS SUBCUTANEOUSLY UP TO THREE TIMES A DAY WITH MEALS PER SLIDING SCALE. MAX 42 UNITS DAILY, Disp: 30 mL, Rfl: 3, Last Dispense: Unknown (outside pharmacy) lancets 28 gauge Misc, 1 each by Miscellaneous route 3 (three) times a day before meals., Disp: 100each, Rfl: 3, Last Dispense: Unknown (outside pharmacy) levothyroxine (SYNTHROID, LEVOTHROID) 112 MCG tablet, Take 112 mcg by mouth daily., Disp: , Rfl: , Last Dispense: Unknown (patient-reported) metFORMIN (GLUCOPHAGE) 1000 MG tablet, Take 1,000 mg by mouth daily with breakfast., Disp: , Rfl: ,Last Dispense: Unknown (patient-reported) TOUJEO MAX U-300 SOLOSTAR 300 unit/mL (3 mL) InPn, Inject 18 Units under the skin daily., Disp: 6 mL, Rfl: 3, Last Dispense: Unknown (outside pharmacy) buPROPion (WELLBUTRIN XL) 300 MG ER 24 hr tablet, Take 300 mg by mouth. (Patient not taking: Reported on 09/12/2024), Disp: , Rfl: , Last Dispense: Unknown (patient-reported) dulaglutide (TRULICITY) 0.75 mg/0.5 mL subcutaneous injection, Inject 0.5 mL (0.75 mg total) under the skin every 7 days., Disp: 2 mL, Rfl: 0, Last Dispense: Unknown (outside pharmacy) TRULICITY 1.5 mg/0.5 mL subcutaneous injection, Inject 0.5 mL (1.5 mg total) under the skin every 7days. (Patient not taking: Reported on 09/12/2024), Disp: 6 mL, Rfl: 3, Last Dispense: Unknown (outside pharmacy) Weight trend: Wt Readings from Last 3 Encounters: 09/12/24 88 kg (194 lb) 06/03/24 84.6 kg (186 lb 9.6 oz) 02/27/24 82.1 kg (181 lb) Review of Systems Pertinent items are noted in HPI. Objective: BP 120/72 (BP Location: Right arm, Patient Position: Sitting) Pulse 81 Ht 177.8 cm (5' 10 ) Wt 88 kg (194 lb) BMI 27.84 kg/m?? on brief examination Amanda is well appearing and in no distress, she is alert and oriented and otherwise cognitively intact, her respirations are comfortable and unlabored, she is without tremor andgross motor function is intact and symmetric, gait is normal Assessment: Type 2 diabetes mellitus, under good control. Today's A1c was 7.3%, the same as it was last fall. CGM data indicates suboptimal TIR, more sustained prandial elevations when compared to recent visits. Problem List Items Addressed This Visit Cardiovascular and Mediastinum Primary hypertension BP in good range today Goal < 130/80 On CCB and ACEi Relevant Orders POCT Hemoglobin A1c (Completed) Endocrine Type 2 diabetes mellitus with hyperglycemia, with long-term current use of insulin - Primary Suboptimal TIR related to recent steroid use, has been off for about a week Continues on metformin, basal insulin, and humalog as needed Recommend increase of basal insulin or resuming GLP1 if affordable which Amanda is interested in, GLP1 therapy would also provide CV benefit Amanda is encouraged to start at initial dosing since she has taken an extended amount of time off GLP1, if tolerating well after a couple weeks with no GI side effects, may resume 1.5 mg dosing Continues using CGM consistently Encouraged continuation of balanced, mindful eating. Encouraged increasing exercise as tolerated. Up to date on eye and foot care Amanda is aware to call the office with any questions, concerns, any hypoglycemia, persistent hyperglycemia. We will follow up in 6 months, she will meet with Ladi Dowling in March Relevant Medications dulaglutide (TRULICITY) 0.75 mg/0.5 mL subcutaneous injection Other Relevant Orders POCT Hemoglobin A1c (Completed) Hyperlipidemia No recent lipid panel available LDL mildly elevated Goal LDL < 70 Continues on high intensity statin Hypothyroidism No recent labs to review, labs done at outside PCP regularly Continues on LT4, PCP manages 43 minutes were spent with the patient, this included face to face time as well as non face to facetime in reviewing medical records, pertinent laboratory results and consultation reports. Time spent with patient did not include interpretation of CGM reports. documented in this encounter Miscellaneous Notes * Assessment & Plan Note - Zelda Gatica CNP - 09/12/2024 10:14 AM ESTAssociated Problem(s): Hyperlipidemia No recent lipid panel available LDL mildly elevated Goal LDL < 70 Continues on high intensity statin * Assessment & Plan Note - Zelda Gatica CNP - 09/12/2024 10:14 AM ESTAssociated Problem(s): Hypothyroidism No recent labs to review, labs done at outside PCP regularly Continues on LT4, PCP manages * Assessment & Plan Note - Zelda Gatica CNP - 09/12/2024 10:14 AM ESTAssociated Problem(s): Primary hypertension BP in good range today Goal < 130/80 On CCB and ACEi * Assessment & Plan Note - Zelda Gatica CNP - 09/12/2024 10:13 AM ESTAssociated Problem(s): Type 2 diabetes mellitus with hyperglycemia, with long-term current use of insulin Suboptimal TIR related to recent steroid use, has been off for about a week Continues on metformin, basal insulin, and humalog as needed Recommend increase of basal insulin or resuming GLP1 if affordable which Amanda is interested in, GLP1 therapy would also provide CV benefit Amanda is encouraged to start at initial dosing since she has taken an extended amount of time off GLP1, if tolerating well after a couple weeks with no GI side effects, may resume 1.5 mg dosing Continues using CGM consistently Encouraged continuation of balanced, mindful eating. Encouraged increasing exercise as tolerated. Up to date on eye and foot care Amanda is aware to call the office with any questions, concerns, any hypoglycemia, persistent hyperglycemia. We will follow up in 6 months, she will meet with Ladi Dowling in March documented in this encounter Plan of Treatment Upcoming Encounters Date Type Department Care Team (Late st Contact Info) Description 03/04/2025 10:20 AM EDT Office Visit [facility] [address] [place] [address] [place] [address] Zelda Gatica CNP [address] [place] [id number] 03/19/2025 11:00 AM EDT Nutrition [facility] [address] [place] [address] [place] [address] Zelda Gatica CNP [address] [place] [id number] Ladi Dowling LDN [address] [place] [id number] documented as of this encounter Procedures Procedure Name Priority Date/Time Associated Diagnosis Comments POCT HEMOGLOBIN A1C Routine 09/12/2024 1 0:15 AM EST Type 2 diabetes mellitus with hyperglycemia, with long-term current use of insulin Primary hypertension documented in this encounter Results * (ABNORMAL) POCT Hemoglobin A1c (09/12/2024 10:15 AM EST) Hemoglobin A1c 7.3(A) 4.2 - 5.8 % [facility] Other 09/12/2024 10:1 5 AM EST Zelda Gatica CNP POINT OF CARE TEST ORDERABLES [facility] [address] [place] [address], [facility] documented in this encounter Visit Diagnoses Diagnosis Type 2 diabetes mellitus with hyperglycemia, with long-term current use of insulin- Primary Primary hypertension Unspecified essential hypertension Hypothyroidism, unspecified type Hyperlipidemia, unspecified hyperlipidemia type documented in this encounter Care Teams White Lead Grinder Relationship Specialty Start Date End Date Azam Parekh MD [address] [place] [address] PCP - General Internal Medicine 09/23/21 documented as of this encounter Additional Source Comments The information contained in this document represents components of the legal health record. It is not the complete legal health record.[facility]
--- OUTSIDE RECORDS SUMMARY | 2024-09-12 14:04 | XMS_ITS | Encounter Summary ---
Author Organization [facility] Address [address] [place] [address] Care Team Providers Care Checker In Name Role Phone Azam Parekh Primary Care Provider [phone] Papo Dominguez APRN Unavailable Unavailabl e Vishal Schuler Unavailable Unavailable Encounter Details Date Type Department Care Team (Late st Contact Info) Description 05/09/2019 Scanned Document [facility] Endocrinology [address] [place] [phone] Papo Dominguez APRN Social History Tobacco Use [...] on filedocumented in this encounter Care Teams Checker In Relationship Specialty Start Date End Date Azam Parekh [address] [facility] [address] [place] [address] PCP - General 04/24/19 Papo Dominguez APRN [address] [facility] [address] [place] [address] Nurse Practitioner Endocrinology 05/09/19 Vishal Schuler [address] [facility] [address] [place] [address] Physician Ophthalmology 05/09/19 documented as of this encounter
--- OUTSIDE RECORDS SUMMARY | 2024-09-12 14:04 | XMS_ITS ---
Author Organization [facility] Address [address] [place] [address] [place] [phone] Care Team Providers Care Supervisor [employer] Name Role Phone Azam Parekh MD Primary Care Provider Unavailab Jaquan Gomez Jr REASON FOR VISIT rectal bleeding,abnormal ugi series Encounters Encounter Location Date Provider Diagnosis [facility] Outpatient [address] [place] [phone] 03/19/2024 Jaquan Daniel Jr Rectal bleeding K62.5 ; Diarrhea R19.7 and Abnormal UGI series R93.3 ASSESSMENTS Encounter Date Diagnosis Assessment Notes Treatment Notes Treatment Clinical Notes 03/19/2024 Rectal bleeding (ICD-10 - K62.5) 03/19/2024 Diarrhea (ICD-10 - R19.7) 03/19/2024 Abnormal UGI series (ICD-10 - R93.3) PLAN OF TREATMENT Next Appt Details Provider Name:Jaquan pierce Jr, 09/26/2024 01:55:00 PM, [address] [place] [address], [address], [place], [phone],
--- OUTSIDE RECORDS SUMMARY | 2024-09-12 14:04 | XMS_ITS | Clinical Summary ---
Author Organization [facility] Address [phone] [place] [id number] Care Team Providers Care Workforce Management Manager Name Role Phone Azam Parekh MD Primary Care Provider [phone] Allergies Active Allergy Reactions Criticality Noted Date Comments Horse/Equine Containing Products Sneezing 10/31/2022 Per allergy testing-does not react to horses House Dust Sneezing 10/31/2022 Tested with allergy testing- no known response Iodinated Contrast Media Hives,Unknown 07/07/20 21 Other Sneezing 10/31/2022 No known response - tested positive with allergy testing Medications Medication Sig Dispensed Refills Start Date End Date Status levothyroxine (SYNTHROID, LEVOTHROID) 112 MCG tablet Take 112 mcg by mouth daily. Active metFORMIN (GLUCOPHAGE) 1000 MG tablet Take 1,000 mg by mouth daily with breakfast. Active cetirizine HCl (ZYRTEC ORAL) Zyrtec Take No date recorded No form recorded No frequency recorded No route recorded No set duration recorded No set duration amount recorded active No dosage strength recorded No dosage strength units of measure recorded Active atorvastatin (LIPITOR) 40 MG tablet Take 40 mg by mouth daily. 09/13/2021 Active ELIQUIS 5 mg tablet Take 5 mg by mouth. 2022 Activ e FREESTYLE LITE Strp strips 1 each by Miscellaneous route 3 (three) times a day before meals. Use to check BG 3 times/day when not wearing Irving 100 strip 3 09/07/2022 Active lancets 28 gauge Misc 1 each by Miscellaneous route 3 (three) times a day before meals. 100 each 3 09/07/2022 Active amLODIPine-benazep ril (LOTREL 5-10) 5-10 mg per capsule Take by mouth. 2022 Active buPROPion (WELLBUTRIN XL) 300 MG ER 24 hr tablet Take 300 mg by mouth. 2022 Active golimumab (SIMPONI) 50 mg/0.5 mL pen Inject 50 mg under the skin every 2 (two) months. Active HUMALOG KWIKPEN INSULIN 200 unit/mL (3 mL) InPn subcutaneous penIndications:Typ e 2 diabetes mellitus with hyperglycemia, with long-term current use of insulin INJECT 4-14 UNITS SUBCUTANEOUSLY UP TO THREE TIMES A DAY WITH MEALS PER SLIDING SCALE. MAX 42 UNITS DAILY 30 mL 3 11/13/2023 Active TOUJEO MAX U-300 SOLOSTAR 300 unit/mL (3 mL) InPnIndications:Ty pe 2 diabetes mellitus with hyperglycemia, with long-term current use of insulin Inject 18 Units under the skin daily. 6 mL 3 01/19/2024 Active FREESTYLE IRVING 3 SENSOR DeviIndications:Ty pe 2 diabetes mellitus with hyperglycemia, with long-term current use of insulin Use to continuously monitor blood sugars with FSL3 sofy, wear on the back of the upper arm, change every 14 days 2 each 11 02/27/2024 Active FREESTYLE IRVING 3 READER MiscIndications:Ty pe 2 diabetes mellitus with hyperglycemia, with long-term current use of insulin Use to continuously monitor blood sugars with the Irving 3 sensor 1 each 02/27/2024 Active TRULICITY 1.5 mg/0.5 mL subcutaneous injectionIndicatio ns:Type 2 diabetes mellitus with hyperglycemia, with long-term current use of insulin Inject 0.5 mL (1.5 mg total) under the skin every 7 days. 6 mL 3 07/05/2024 Active Additional Information Patient not taking.Reported on 09/12/2024 dulaglutide (TRULICITY) 0.75 mg/0.5 mL subcutaneous injectionIndicatio ns:Type 2 diabetes mellitus with hyperglycemia, with long-term current use of insulin Inject 0.5 mL (0.75 mg total) under the skin every 7 days. 2 mL 09/12/2024 Active Active Problems Problem Noted Date Diagnosed Date Type 2 diabetes mellitus wit h hyperglycemia, with long-term current use of insulin 09/30/2021 Assessment & Plan (09/12/2024 12:42 PM EST): Suboptimal TIR related to recent steroid use, has been off for about a week Continues on metformin, basal insulin, and humalog as needed Recommend increase of basal insulin or resuming GLP1 if affordable which mAanda is interested in, GLP1 therapy would also [...] will meet with Ladi Dowling in March Assessment & Plan (06/03/2024 2:24 PM EST): Spending very good time in range Continues on metformin, basal insulin, and humalog as needed Recommend increase of basal insulin or starting GLP1 which Amanda is interested in Cost has been an issue in the past, but Amanda has met her max out of pocket and would like to try GLP1 before increasing insulin No history of pancreatitis, family history of MTC, reviewed side effects and administration Continues using CGM consistently Encouraged continuation of balanced, mindful eating. Encouraged increasing exercise as tolerated. Up to date on eye and foot care Amanda is aware to call the office with any questions, concerns, any hypoglycemia, persistent hyperglycemia. We will follow up in 3 months Assessment & Plan (02/27/2024 2:23 PM EDT): Spending excellent time in range Continues on metformin, basal insulin, and humalog as needed, no adjustments done today Continues using CGM consistently Encouraged continuation of balanced, mindful eating. Encouraged increasing exercise as tolerated. Up to date on eye and foot care. Annual labwork ordered today. Amanda is aware to call the office with any questions, concerns, any hypoglycemia, persistent hyperglycemia. We will follow up in 3 months Assessment & Plan (08/11/2023 10:54 AM EST): Spending excellent time in range Continues on metformin, basal/GLP combo, and humalog as needed Amanda is concerned by prandial elevations, we discussed increasing Soliqua to help with this, this should also help prevent overnight elevations We also discussed finding out more about moderate KRISTOFER diagnosis as untreated KRISTOFER can be impacting blood sugars, increasing insulin resistance. Amanda plans to follow up with PCP to find out more. We discussed if she needs to be treated for KRISTOFER, insulin resistance is likely to improve which may lead to decreased insulin doses Encouraged continuation of balanced, mindful eating. Encouraged increasing exercise as tolerated. Up to date on eye and foot care. Will request most recent labs from PCP. Amanda is aware to call the office with any questions, concerns, any hypoglycemia, persistent hyperglycemia. We will follow up in 2 months Assessment & Plan (05/02/2023 1:03 PM EDT): Spending more time in range, continues at the upper end of the target range Historically, Amanda's main concern was the high out of pocket cost of her medications, has found the new insulin cap to bring down insulin costs considerably Is interested in GLP1, but concerned about cost, we discussed sending to the pharmacy to check copay info, Amanda would like to try this option first since has been taking trulicity and tolerating well. Advised continuation of basal insulin, but cutting back on prandial insulin dosage with GLP1 use. We revisited that we could try a basal insulin/GLP1 combo which should fall under $35 insulin copay cap. Amanda will consider these options and reach out with any decisions. Encouraged continuation of balanced, mindful eating. Encouraged increasing exercise as tolerated. Amanda is aware to call the office with any questions, concerns, any hypoglycemia, persistent hyperglycemia. We will follow up in 3 months Assessment & Plan (01/30/2023 4:42 PM EDT): Patterns continue to be right around upper end of the target range Historically, Amanda's main concern was the high out of pocket cost of her medications, has found the new insulin cap to bring down insulin costs considerably Is interested in GLP1, but concerned about cost, we discussed sending to the pharmacy to check copay info or calling the insurance. Amanda would like to try the 2 pens from her friend. We discussed that this isn't advised given unknowns about medication storage, but reviewed things to look for if she tries them, including dosage strength being 0.75 mg, the pens are unexpired, and ensuring that the medications have been refrigerated. Encouraged rather sending to pharmacy to ensure receipt of regulated medication. If she tries these and does have site reaction, could consider Ozempic as this is a different administration pen. We can revisit these options in the future, but Amanda is encouraged to reach out sooner if would like to try these medication options prior to next visit, advised continuation of basal insulin, but cutting back on prandial insulin dosage with GLP1 use. Amanda is concerned with cost of GLP1, we discussed that we could try a basal insulin/GLP1 combo which should fall under $35 insulin copay cap. Amanda will consider these options and reach out with any decisions. Encouraged continuation of balanced, mindful eating. Encouraged increasing exercise as tolerated. Amanda is aware to call the office with any questions, concerns, any hypoglycemia, persistent hyperglycemia. We will follow up in 3 months Assessment & Plan (10/31/2022 11:36 AM EDT): Improving glycemic control per CGM report Patterns are generally right around upper end of the target range Encouraged increase in Toujeo dosing to aid in this pattern Historically, Amanda's main concern was the high out of pocket cost of her medications, has found the new insulin cap to bring down insulin costs considerably Briefly discussed medications to aid in prandial rises including GLP1ra and SGLT2i. Frequent history of UTIs rules out SGLT2i as a viable option. Amanda had site reactions from Kimmy in the past, could consider Ozempic as this is a different administration pen. We can revisit these options in the future. Encouraged continuation of balanced, mindful eating. Offered visit with diabetes education but Amanda declines at this time. Encouraged increasing exercise as tolerated. Amanda is aware to call the office with any questions, concerns, any hypoglycemia, persistent hyperglycemia. We will follow up in 3 months Assessment & Plan (08/02/2022 2:27 PM EST): Slight worsening in glycemic control per CGM report Patterns are generally right around upper end of the target range Encouraged increase in Toujeo dosing to aid in this pattern Historically, Amanda's main concern was the high out of pocket cost of her medications, we discussed the new insulin cap at $35 We discussed reducing dose of metformin to see if there are any pattern changes, if noticing hyperglycemia will resume at higher dose. If no change is noticed then Amanda could try coming off metformin altogether, resuming though if noticing more profound hyperglycemia Encouraged continuation of mindful eating. Encouraged increasing exercise as tolerated. Amanda is aware to call the office with any questions, concerns, any hypoglycemia, persistent hyperglycemia. We will follow up in 3 months Assessment & Plan (05/02/2022 11:59 AM EDT): Good glycemic control per CGM report, though some fasting hyperglycemia and Amanda notices blood sugars will increase through the morning before eating, discussed factors that could be contributing to this including caffiene intake, increased insulin resistance in the morning, and release of cortisol in the morning Encouraged continuation of insulin doses as prescribed, provided sample pens to ensure Amanda does not have to choose between taking medications and paying for other life sustaining costs Amanda's main concern is still the high out of pocket cost of her medications, especially now with being in the donaz hole with Medicare Discussed options to help lessen the burden of medication costs, though Amanda for now would like to continue current regimen with the consideration of experimenting off DM medications to see the impact. The past 3 days have been reasonable with not being on any diabetes medications Encouraged continuation of mindful eating. Encouraged increasing exercise as tolerated. Amanda is aware to call the office with any questions, concerns, any hypoglycemia, persistent hyperglycemia. Assessment & Plan (01/27/2022 2:31 PM EDT): Good glycemic control per CGM report, though some fasting hyperglycemia and Amanda notices blood sugars will increase overnight and through the morning before eating Encouraged increase of Toujeo dose to 16 units, continuing to dose with Humalog as needed for correction. Provided with updated insulin correction scale as it seems blood sugars go too low when using current scale. Amanda has not been dosing before meals but will only dose after if needed for a correction, generally eating very low carb overall Amanda's main concern is still the high out of pocket cost of her medications. Attempted to obtain copay info on other meds through the patient estimate function in the EMR that showed unknown copays for jardiance and ozempic, but a $75 copay for Trulicity. Amanda has been on Trulicity in the past and would get welts when administering into her legs, but not in abdomen. Did have itchiness when given into the abdomen but not into the leg so unclear if it is a site reaction or the injection site choice. Amanda would be willing to retry potentially in the future if it would mean a lower copay (since the Humalog was in the high 100s for a copay). This would also provide better prandial coverage and could reduce overall insulin requirement as well reducing Toujeo as well, which could in turn aid this copay amount. For now, since Amanda still has a large supply of Humalog left, we will continue with MDI. Amanda will try the increased amount of Toujeo and the correction Humalog scale. We will follow up in 3 months, though Amanda is aware to call sooner if would like to try different medication options before follow up. Encouraged continuation of mindful eating. Encouraged increasing exercise as tolerated. We discussed Amanda's mental health today as she has been having a tough time with a lot of stress and depression. We discussed various coping strategies. Encouraged Amanda to reach out to Dr. Parekh to discuss increased Wellbutrin dose/other mental health resources that can be offered by PCP office. Amanda is aware to call the office with any questions, concerns, any hypoglycemia, persistent hyperglycemia. Assessment & Plan (11/01/2021 2:14 PM EDT): Amanda has had improving glycemic control per CGM report since restarting Lantus. Estimated A1c over the past few weeks of downloads is closer to 7%. Amanda's main concern is still the high out of pocket cost of her insulins. I have reached out to [employer] and [employer] reps to see if they can offer any suggestions for assistance. Amanda started to go through the patient assistance applications, but stopped because her income is falsely high this year and will not be fixed until filing taxes next year, per Amanda's report. We discussed calling the [employer] [facility] and I gave her a card with the contact information on it. Amanda continues on Metformin 1000 mg BID, Lantus 15 units daily, and Humalog sliding scale. Amanda could benefit from a mild increase of Lantus to help with gradual rise in BGs in the morning, but she still remains in the target range with 15 units daily. This could also be the effect of dosing Lantus in the morning instead of in the evening. We discussed that by increasing Lantus, it may require an additional Lantus pen which may increase the cost of Amanda's Lantus prescription. The Lantus is the more concerning cost to Amanda so she would like to remain on the same dosages for now. We could consider trailing Lantus at night to avoid rising AM sugars in case Lantus is wearing off just before the next dose and causing the gradual rise in sugar. Encouraged continuation of mindful eating. Encouraged increasing exercise as tolerated. Amanda is aware to call the office with any questions, concerns, any hypoglycemia, persistent hyperglycemia. Assessment & Plan (09/30/2021 5:49 PM EDT): Amanda has had worsening glycemic control per report and seems to be likely due to running out of medications, unable to refill with last chemist intern since her provider left the practice. Amanda has been managed on Metformin 1000 mg BID and Humalog sliding scale for the last several months. Without Lantus, it seems to be very difficult for Amanda to have readings in range. Gradual rises and glucoses resistant to Humalog dosing despite eating very low carb is evidence that basal insulin should be restarted. Would like to restart Lantus at 15 units daily. Stressed the importance of dosing with less Humalog at meals and holding Humalog at meals with no or very low carbs. Given that Amanda feels things have changes recently with her diabetes, that alternative medications do not seem to be working as well, and Amanda is questioning T1 vs T2, will obtain C-peptide level and GAD65 antibody labs. She also requests checking on kidney function as she cannot recall the last time this was done. Amanda notes that she [place] [facility] white goods appliance [place], which we can request results of. Will wait to see what other labs were done before adding anymore to avoid any duplication. Discussed FSL2 system and the benefits of alarms, which Amanda was on prior to an insurance change. Advised that we can send it to her pharmacy but it may need to go through DME. Amanda is able to get the original Freestyle Irving through [employer] for rather inexpensive so prefers to stay on the system if insurance does not cover FSL2 at the pharmacy. Encouraged Amanda to double check sensor readings against fingerstick to test accuracy since wearing sensor in an unconventional area. Meter and supplies sent to pharmacy. Discussed hypoglycemia signs, symptoms, and treatment. Encouraged continuation of mindful eating. Encouraged increasing exercise as tolerated. Amanda is aware to call the office with any questions, concerns, any hypoglycemia, persistent hyperglycemia. Primary hypertension 09/30/2021 Assessment & Plan (09/12/2024 12:39 PM EST): BP in good range today Goal < 130/80 On CCB and ACEi Assessment & Plan (06/03/2024 2:24 PM EST): BP in excellent range today Goal < 130/80 On CCB and ACEi Assessment & Plan (02/27/2024 1:55 PM EDT): BP in excellent range today Goal < 130/80 On CCB and ACEi Assessment & Plan (08/11/2023 10:50 AM EST): BP in excellent range today Goal < 130/80 On CCB and ACEi Assessment & Plan (05/02/2023 1:03 PM EDT): BP in excellent range today Goal < 130/80 On CCB and ACEi Assessment & Plan (01/30/2023 4:39 PM EDT): BP in excellent range today Goal < 130/80 On CCB and ACEi Assessment & Plan (10/31/2022 11:33 AM EDT): BP in excellent range today Goal < 130/80 On CCB and ACEi Assessment & Plan (08/02/2022 2:27 PM EST): BP in excellent range today Goal < 130/80 On CCB and ACEi Assessment & Plan (05/02/2022 12:01 PM EDT): BP in excellent range today Goal < 130/80 On CCB and ACEi Assessment & Plan (01/27/2022 2:32 PM EDT): BP stable, essentially at goal today Goal < 130/80 PCP discontinued ACEi, was started on CCB. Would recommend ACEi or ARB if needing additional antihypertensive therapy in the future for the renal protective qualities Assessment & Plan (11/01/2021 2:15 PM EDT): BP stable, just above goal today Goal < 130/80 Continues on ACEi Assessment & Plan (09/30/2021 5:21 PM EDT): Elevated today Goal < 130/80 Continues on ACEi Will continue to monitor blood pressures at office visits, may benefit from dose increase Hyperlipidemia 09/30/2021 Assessment & Plan (09/12/2024 10:14 AM EST): No recent lipid panel available LDL mildly elevated Goal LDL < 70 Continues on high intensity statin Assessment & Plan (06/03/2024 2:24 PM EST): No recent lipid panel available LDL mildly elevated Goal LDL < 70 Continues on high intensity statin Assessment & Plan (02/27/2024 1:56 PM EDT): No recent lipid panel available LDL mildly elevated Goal LDL < 70 Continues on high intensity statin Assessment & Plan (08/11/2023 10:50 AM EST): No recent lipid panel available LDL mildly elevated Goal LDL < 70 Continues on high intensity statin Assessment & Plan (05/02/2023 1:03 PM EDT): No recent lipid panel available LDL mildly elevated Goal LDL < 70 Continues on high intensity statin Assessment & Plan (01/30/2023 4:40 PM EDT): No recent lipid panel available LDL mildly elevated Goal LDL < 70 Continues on high intensity statin Assessment & Plan (10/31/2022 11:34 AM EDT): No recent lipid panel available LDL mildly elevated Goal LDL < 70 Continues on high intensity statin Assessment & Plan (08/02/2022 2:27 PM EST): No recent lipid panel available LDL mildly elevated Goal LDL < 70 Continues on high intensity statin Assessment & Plan (05/02/2022 12:01 PM EDT): No recent lipid panel available LDL mildly elevated Goal LDL < 70 Continues on high intensity statin Assessment & Plan (01/27/2022 2:32 PM EDT): Reviewed most recent scanned labs LDL mildly elevated Goal LDL < 70 Continues on high intensity statin Assessment & Plan (11/01/2021 2:16 PM EDT): Reviewed most recent scanned labs LDL mildly elevated Goal LDL < 70 Continues on high intensity statin Assessment & Plan (09/30/2021 5:24 PM EDT): No recent lab panel to review [place] [facility] Goal LDL < 70 Continues on high intensity statin Hypothyroidism 09/30/2021 Assessment & Plan (09/12/2024 10:14 AM EST): No recent labs to review, labs done at outside PCP regularly Continues on LT4, PCP manages Assessment & Plan (02/27/2024 1:56 PM EDT): No recent labs to review, labs done at outside PCP regularly Continues on LT4, PCP manages Assessment & Plan (08/11/2023 10:50 AM EST): No recent labs to review, labs done at outside PCP regularly Continues on LT4, PCP manages Assessment & Plan (05/02/2023 1:04 PM EDT): No recent labs to review, labs done at outside PCP regularly Continues on LT4, PCP manages Assessment & Plan (01/30/2023 4:40 PM EDT): No recent labs to review, labs done at outside PCP regularly Continues on LT4, PCP manages Assessment & Plan (10/31/2022 11:34 AM EDT): No recent labs to review, labs done at outside PCP regularly Continues on LT4, PCP manages Assessment & Plan (08/02/2022 2:28 PM EST): No recent labs to review, labs done at outside PCP regularly Continues on LT4, PCP manages Assessment & Plan (01/27/2022 2:33 PM EDT): No recent labs to review Continues on LT4 Assessment & Plan (11/01/2021 2:19 PM EDT): Reviewed most recent scanned TSH level TSH within range Continues on LT4 Assessment & Plan (09/30/2021 5:23 PM EDT): No recent labs to review Continues on LT4 Resolved Problems Problem Noted Date Diagnosed Date Resolved Date Uncontrolled type 2 diabetes mellitus with insulin therapy 09/30/2021 09/30/2021 Encounters Date Type Department Care Team Description 09/12/2024 10:00 AM EST Office Visit [facility] [address] [place] [address] Zelda Gatica, JOYCELYN Type 2 diabetes mellitus with hyperglycemia, with long-term current use of insulin (Primary Dx); Primary hypertension; Hypothyroidism, unspecified type; Hyperlipidemia, unspecified hyperlipidemia type 07/04/2024 Telephone [facility] [address] [place] [address] Zelda Gatica, JOYCELYN Trulicity update to Zelda (Trulicity update to Zelda) 06/27/2024 Telephone [facility] [address] [place] [address] Zelda Gatica, JOYCELYN Lab Result - A1C from Last 3 Months Social History Tobacco Use Types Packs/Day Years Used Date Smoking Tobacco: Former Cigarettes 0.5 15 0 10/01/1971 - 09/30/1986 Smokeless Tobacco: Never Tobacco Cessation:Counseling Given: Not Answered Alcohol Use Standard Drinks/Week Comments Not Currently [...] on file Sexual Orientation Not on file Last Filed Vital Signs Vital Sign Reading Time Taken Comments Blood Pressure 120/72 09/12/2024 9:58 AM EST Pulse 81 09/12/2024 9:58 AM EST Temperature 36.3 ??C (97.3 ??F) 02/27/2024 1:11 PM ED T Respiratory Rate 18 10/31/2022 10:04 AM EDT Oxygen Saturation 97% 06/03/2024 12:54 PM EST Inhaled Oxygen Concentration - - Weight 88 kg (194 lb) 09/12/2024 9:58 AM EST Height 177.8 cm (5' 10 ) 09/12/2024 9:58 AM EST Body Mass Index 27.84 09/12/2024 9:58 AM EST Plan of Treatment Upcoming Encounters Date Type Department Care Team (Late st Contact Info) Description 03/04/2025 10:20 AM EDT Office Visit [facility] [facility] [address] [place] [address] [place] [address] Zelda Gatica, JOYCELYN 22 [facility], 1st [place] [address] 03/19/2025 11:00 AM EDT Nutrition [facility] [address] [place] [address] [place] [address] Zelda Gatica, SCREENING TECH 22 [facility], 1st [place] [address] [email or web address] Ladi Dowling, LDN 22 [place] [address] [email or web address] Health Maintenance Due Date Last Done Comments DEPRESSION SCREENING 1967 HEPATITIS B SCREENING 1973 HEPATITIS C SCREENING 1973 MAMMOGRAM 1995 COLOGUARD 2000 COLONOSCOPY 2000 COLORECTAL CANCER SCREENING 2000 FIT TEST 2000 FOBT 2000 SIGMOIDOSCOPY 2000 VIRTUAL COLONOSCOPY 2000 OSTEOPOROSIS SCREENING INITIAL (ONE-TIME) 2020 TSH LEVEL 07/31/2020 07/31/2019 DIABETIC EYE EXAM 09/30/2021 CREATININE LEVEL 09/30/2022 09/30/2021 POTASSIUM LEVEL 09/30/2022 09/30/2021 COVID-19 VACCINE ( season) 2024 08/11/2022, 05/11/2021, 10/16/2020, Additional history exists BLOOD PRESSURE 12/01/2024 09/12/2024 HEMOGLOBIN A1C 03/12/2025 09/12/2024, 05/17, 02/27/2024, Additional history exists Adult Td,Tdap Booster 05/19/2027 05/19/2017, 007 ZOSTER VACCINES Completed 01/18/2022, 07/14/2021 PNEUMOCOCCAL VACCINES (50+ years) Completed 11/22/2022, 04/20/2007 RSV VACCINE Completed 05/24/2024 SMOKING STATUS SCREENING (Once After 26 Yrs) Completed 06/03/2024 INFLUENZA VACCINE Completed 06/07/2024, , 05/03/2022, Additional history exists HEPATITIS A VACCINES Aged Out No long er eligible based on patient's age to complete this topic HEPATITIS B VACCINES Aged Out No long er eligible based on patient's age to complete this topic HIB VACCINES Aged Out No longer eligi ble based on patient's age to complete this topic MENINGOCOCCAL VACCINES (ACWY) Aged Out No longer eligible based on patient's age to complete this topic Medical Devices Not on file Procedures Procedure Name Priority Date/Time Associated Diagnosis Comments POCT HEMOGLOBIN A1C Routine 09/12/2024 1 0:15 AM EST Type 2 diabetes mellitus with hyperglycemia, with long-term current use of insulin Primary hypertension COMPREHENSIVE METABOLIC PANEL Routine 09/30/2021 3:50 PM EDT Uncontrolled type 2 diabetes mellitus with complication, without long-term current use of insulin from Last 3 Months or Most Recently Relevant to Health Maintenance Results * (ABNORMAL) POCT Hemoglobin A1c (09/12/2024 10:15 AM EST) Hemoglobin A1c 7.3(A) 4.2 - 5.8 % [facility] Other 09/12/2024 10:1 5 AM EST Zelda Gatica CNP POINT OF CARE TEST ORDERABLES Performing Organization Address City/State/[facility] Co de Phone Number [address] [address], [facility] * (ABNORMAL) Comprehensive metabolic panel (09/30/2021 3:50 PM EDT) SODIUM 139 133 - 146 mmol/L [facility] POTASSIUM 4.1 3.3 - 5.1 mmol/L [facility] CHLORIDE 104 96 - 108 mmol/L [facility] CO2 25 21 - 35 mmol/L [facility] BUN 19 6 - 19 mg/dL [facility] CREATININE 0.60 0.5 - 1.5 mg/dL [facility] GLUCOSE 185(H) 70 - 99 mg/dL [facility] ALBUMIN 4.5 3.9 - 4.8 g/dL [facility] TOTAL PROTEIN 7.2 6.5 - 8.0 g/dL [facility] CALCIUM 9.9 8.4 - 10.3 mg/dL [facility] ALKALINE PHOSPHATASE 72 39 - 117 U/L [facility] TOTAL BILIRUBIN 1.2 0.0 - 1.2 mg/dL [facility] AST 21 0 - 37 U/L [facility] ALT 23 0 - 40 U/L [facility] GLOBULIN 2.7 1 - 4.8 g/dL [facility] EGFR 99 >59 mL/min/1.7 3m2 [facility] Comment:Estimated glomerular filtration rate calculated using the CKD-EPI refit equation. ANION GAP 14 10 - 20 mmol/L [facility] Blood 09/30/2021 3:50 PM EDT 09/30/2021 3:56 PM EDT Zelda Gatica [facility] LAB BLOOD ORD ERABLES [facility] [address] [place] [address] from Last 3 Months or Most Recently Relevant to Health Maintenance Care Teams Workforce Management Manager Relationship Specialty Start Date End Date Azam Parekh MD [address] [place] [address] PCP - General Internal Medicine 09/23/21 Additional Source Comments The information contained in this document represents components of the legal health record. It is not the complete legal health record.[facility]
--- OUTSIDE RECORDS SUMMARY | 2024-09-12 14:04 | XMS_ITS | Encounter Summary ---
Author Organization [facility] Address [address] [place] [address] Care Team Providers Care Power Generating Plant Operator Name Role Phone Azam Parekh Primary Care Provider [phone] Papo Dominguez APRN Unavailable Unavailabl e Vishal Schuler Unavailable Unavailable Encounter Details Date Type Department Care Team (Late st Contact Info) Description 11/06/2019 Scanned Document [facility] Endocrinology [address] [phone] Papo Dominguez APRN Social History Tobacco Use [...] on filedocumented in this encounter Care Teams Power Generating Plant Operator Relationship Specialty Start Date End Date Azam Parekh [address] [facility] 2 [place] [address] PCP - General 04/24/19 Papo Dominguez APRN 237 [facility] 2 [place] [address] Nurse Practitioner Endocrinology 05/09/19 Vishal Schuler [address] [address] Physician Ophthalmology 05/09/19 documented as of this encounter
--- OUTSIDE RECORDS SUMMARY | 2024-09-12 14:04 | XMS_ITS | Encounter Summary ---
Author Organization [facility] Address [address] [place] [address] Care Team Providers Care Station Examiner Name Role Phone Azam Parekh Primary Care Provider [phone] Papo Dominguez VETERINARY PRACTICE MANAGER Unavailable Unavailabl e Vishal Schuler Unavailable Unavailable Reason for Visit * Reason Comments Medication Refill Encounter Details Date Type Department Care Team (Late st Contact Info) Description 04/06/2020 Refill [facility] Endocrinology [address] [phone] Papo Dominguez APRN Controlled type 2 diabetes mellitus without complication, without long-term current use of insulin (HCC) [...] as of this encounter Visit Diagnoses Diagnosis Controlled type 2 diabetes mellitus without complication, without long-term current use of insulin (HCC) documented in this encounter Care Teams Station Examiner Relationship Specialty Start Date End Date Azam Parekh [address] [place] [address] [address] [place] [address] PCP - General 04/24/19 Papo Dominguez APRN [address] [facility] [place] [address] [place] [address] Nurse Practitioner Endocrinology 05/09/19 Vishal Schuler 8900 [facility] [place] [address] [place] [address] Physician Ophthalmology 05/09/19 documented as of this encounter
--- OUTSIDE RECORDS SUMMARY | 2024-09-12 14:05 | XMS_ITS ---
Author Organization [facility] Address [address] [place] [address] Care Team Providers Care Butcher Scullion Name Role Phone Azam Parekh MD Primary Care Provider Unavailab nestor Daniel Jr, Jaquan Unavailable [phone] Encounters Encounter Location Date Provider Diagnosis [facility] [address] [place] [address] [address] [place] [address] 02/02/2024 Jaquan Daniel Jr PLAN OF TREATMENT Next Appt Details Provider Name:Jaquan pierce Jr, 09/26/2024 01:55:00 PM, [address] [place] [address], [address], [place], [address],
--- OUTSIDE RECORDS SUMMARY | 2024-09-12 14:05 | XMS_ITS | Clinical Summary ---
Author Organization [facility] Address [address] [place] [address] Care Team Providers Care Ram Car Operator Name Role Phone Azam Parekh Primary Care Provider [phone] Papo Dominguez APRN Unavailable Unavailabl e Vishal Schuler Unavailable Unavailable Allergies Active Allergy Reactions Criticality Noted Date Comments Iodinated Contrast Media Hives Medium 05/09/2019 Medications Medication Sig Dispensed Refills Start Date End Date Status levothyroxine (SYNTHROID, LEVOTHROID) 112 MCG tablet Take 112 mcg by mouth daily on an empty stomach. Active atorvastatin (LIPITOR) 40 MG tablet 03/01/2019 Active DULoxetine (CYMBALTA) 60 MG capsule TAKE 2 CAPSULES PO QD 3 04/23/2019 Active nitrofurantoin (MACRODANTIN) 50 MG capsule TK 1 C PO QD HS 0 02/26/2019 Active ONETOUCH ULTRA BLUE TEST strip USE TO TEST BLOOD GLUCOSE UP TO 2 TIMES A DAY 1 04/25/2019 Active amphetamine-dextroa mphetamine (ADDERALL) 20 MG tablet Take 20 mg by mouth 2 (two) times a day. Active Cannabidiol Non-THC (CBD) Misc [place]/Smoke/Vapor/O il Inhale. Active SUPER B COMPLEX/C PO Take by mouth. Active Coenzyme Q10 (COQ10 PO) Take by mouth. Active Vitamin D3 (CHOLECALICEROL) 2000 units tablet Take 2,000 Units by mouth every other day. Active aspirin 81 MG chewable tablet Chew 81 mg daily. Active Collagen 500 MG Cap Take by mouth. A ctive lisinopril (PRINIVIL,ZeSTRIL) 5 MG tablet Take 5 mg by mouth daily. Active metFORMIN (GLUCOPHAGE) 1000 MG tabletIndications:C ontrolled type 2 diabetes mellitus without complication, without long-term current use of insulin ([facility]) TAKE 1 TABLET TWICE A DAY WITH MEALS 180 tablet 3 04/06/2020 Active Continuous Blood Gluc Set Off Blocker (FreeStyle Irving 2 [place]mar Systm) DeviceIndications:T ype 2 diabetes mellitus with hyperglycemia, without long-term current use of insulin ([facility]) 1 Device by Does not apply route See Admin Instructions. Use to test blood glucose 1 each 06/15/2020 Active Continuous Blood Gluc Sensor (FreeStyle Irving 2 Sensor Systm) MiscIndications:Typ e 2 diabetes mellitus with hyperglycemia, without long-term current use of insulin ([facility]) 6 Devices by Does not apply route See Admin Instructions. Change sensor to arm every 14 days 6 each 3 06/15/2020 Active Continuous Blood Gluc Sensor (FreeStyle Irving 2 Sensor) MiscIndications:Typ e 2 diabetes mellitus with hyperglycemia, without long-term current use of insulin ([facility]) 1 Device by Does not apply route See Admin Instructions. Change sensor to arm every 14 days 6 each 1 09/07/2020 Active Trulicity 1.5 MG/0.5ML subcutaneous injectionIndication s:Type 2 diabetes mellitus with hyperglycemia, without long-term current use of insulin ([facility]) INJECT 1.5 MG UNDER THE SKIN ONCE A WEEK 13 pen 11/23/2020 Active HumaLOG KwikPen 200 UNIT/ML prefilled pen injectionIndication s:Type 2 diabetes mellitus with hyperglycemia, without long-term current use of insulin ([facility]) Inject 10 units SQ before breakfast, 6 units SQ before lunch, and 4 units SQ before dinner. 5 pen 3 12/07/2020 Active Lantus SoloStar 100 UNIT/ML pen injectionIndication s:Type 2 diabetes mellitus with hyperglycemia, without long-term current use of insulin ([facility]) Inject 16 Units under the skin nightly. 15 mL 3 12/07/2020 Active Insulin Pen Needle 32G X 4 MM MiscIndications:Typ e 2 diabetes mellitus with hyperglycemia, without long-term current use of insulin ([facility]) Use to administer insulin 4 times a day 400 pen needle 3 12/07/2020 Active Active Problems Problem Noted Date Diagnosed Date Type 2 diabetes mellitus with hyperglycemia 02/15 Controlled type 2 diabetes m ellitus, without long-term current use of insulin 05/09/2019 Mixed hyperlipidemia 05/09/2019 Hypertension, essential, benign 05/09/2019 Hypothyroidism 05/09/2019 Family History Medical History Relation Name Comments Diabetes type II Brother Hyperlipidemia Brother No Known Problems Daughter 1 No Known Problems Daughter 2 Hyperlipidemia Father Diabetes type II Mother Hyperlipidemia Mother Hypothyroidism Mother No Known Problems Son Relation Name Status Comments Brother Alive Daughter 1 Alive Daughter 2 Alive Father Alive Mother Alive Son Alive Social History Tobacco Use Types Packs/Day Years [...] Sign Reading Time Taken Comments Blood Pressure 140/86 03/12/2020 12:53 PM EDT Pulse 72 03/12/2020 11:47 AM EDT Temperature - - Respiratory Rate - - Oxygen Saturation - - Inhaled Oxygen Concentration - - Weight 85.5 kg (188 lb 6.4 oz) 03/12/2020 11:47 AM EDT Height 177.8 cm (5' 10 ) 03/12/2020 11:47 AM EDT Body Mass Index 27.03 03/12/2020 11:47 AM EDT Plan of Treatment Health Maintenance Due Date Last Done Comments Hepatitis C Virus Screening 1955 DTaP/Tdap/Td Vaccines (1 - Tdap) 1974 Pneumococcal Vaccines 50+ (1 of 1 - PCV) 2005 Zoster (Shingles) Vaccine (1 of 2) 2005 COVID-19 Vaccine (1 - 2023-25 season) 2024 RSV Vaccine 60 years and older and Patients (1 - 1-dose 75+ series) 2030 Foot Exam Discontinued 05/09/2019 Lipid Panel Discontinued 07/31/2019 Hemoglobin A1C Discontinued 03/09/2020, 07/31/2019, 05/04/2019 Influenza Vaccine Discontinued 05/04/2020 Hepatitis B Vaccines Aged Out No long er eligible based on patient's age to complete this topic Procedures Procedure Name Priority Date/Time Associated Diagnosis Comments HEMOGLOBIN A1C Routine 03/09/2020 8:35 AM EDT Controlled type 2 diabetes mellitus without complication, without long-term current use of insulin (HCC) LIPID PANEL REFLEX DIRECT LDL Routine 07/31/2019 7:47 AM EST Type 2 diabetes mellitus with hyperglycemia, without long-term current use of insulin (HCC) from Last 3 Months or Most Recently Relevant to Health Maintenance Results * (ABNORMAL) Hemoglobin A1c (03/09/2020 8:35 AM EDT) Hemoglobin A1C 7.4(H) <5.7 % of total Hgb [facility] Comment: For someone without known diabetes, a hemoglobin A1c value of 6.5% or greater indicates that they may have diabetes and this should be confirmed with a follow-up test. For someone with known diabetes, a value <7% indicates that their diabetes is well controlled and a value greater than or equal to 7% indicates suboptimal control. A1c targets should be individualized based on duration of diabetes, age, comorbid conditions, and other considerations. Currently, no consensus exists regarding use of hemoglobin A1c for diagnosis of diabetes for children. ?? Blood specimen (specimen) 03/09/2020 8:35 AM EDT 03/09/2020 8:36 AM EDT Narrative [facility] - 03/10/2020 6:36 PM EDT FASTING:YES FASTING: YES Resulting Agency Comment Performing Organization Information: ?Site ID: [id number] ?Name: [employer] ?Address: [address] [place] [address], [facility] [address] ?Director: Lai Contreras MD Papo Dominguez APRN LAB BLOOD ORDERABLE S [facility] [address] [place] [address], [place] [address] * (ABNORMAL) Lipid Panel Reflex Direct LDL (07/31/2019 7:47 AM EST) Cholesterol, Total 187 <200 mg/dL [facility] Cholesterol, HDL 56 >50 mg/dL [facility] Triglycerides 147 <150 mg/dL [facility] LDL Cholesterol 105(H) mg/dL (calc) [facility] Comment: Reference range: <100 Desirable range <100 mg/dL for primary prevention; ?? <70 mg/dL for patients with CHD or diabetic patients with > or = 2 CHD risk factors. LDL-C is now calculated using the Alok calculation, which is a validated novel method providing better accuracy than the Friedewald equation in the estimation of LDL-C. Louis LAWTON et al. MARCI. 2013;310(19): 5584-0899 (http://education.Cover/faq/LGP759) Cholesterol/HDL Ratio 3.3 <5.0 (calc) [facility] Non HDL Chol. (LDL+VLDL) 131(H) <130 mg/dL (calc) [facility] Comment: For patients with diabetes plus 1 major ASCVD risk factor, treating to a non-HDL-C goal of <100 mg/dL (LDL-C of <70 mg/dL) is considered a therapeutic option. Blood specimen (specimen) 07/31/2019 7:47 AM EST 07/31/2019 7:48 AM EST Narrative [facility] - 08/01/2019 2:17 AM EST FASTING:YES PATIENT UNABLE TO VOID; ADVISED TO RETURN FOR COLLECTION. FASTING: YES Resulting Agency Comment Performing Organization Information: ?Site ID: [id number] ?Name: [employer] ?Address: [address] [place] [address], [place] [address] ?Director: Lai Contreras MD Papo Dominguez APRN LAB BLOOD ORDERABLE S [facility] [address] [place] [address], [place] [address] from Last 3 Months or Most Recently Relevant to Health Maintenance Care Teams Ram Car Operator Relationship Specialty Start Date End Date Azam Parekh [address] [address] PCP - General 04/24/19 Papo Dominguez APRN [address] [place] [address] Nurse Practitioner Endocrinology 05/09/19 Vishal Schuler 8900 [facility] [address] [place] [address] Physician Ophthalmology 05/09/19
--- OUTSIDE RECORDS SUMMARY | 2024-09-12 14:05 | XMS_ITS ---
Author Organization [facility] Address [address] [place] [address] Care Team Providers Care Desktop Publisher Name Role Phone Izabella MCDONOUGH, Azam Primary Care Provider Unavailab nestor Juarez Irene Unavailable [phone] Encounters Encounter Location Date Provider Diagnosis [facility] [address] [place] [address] 02/16/2024 Irene Juarez Plan Of Treatment Next Appt Details Provider Name:Irene Juarez , 04/02/2025 08:00:00 AM, [address] [place], [address], Progress Notes * Erika TRANOB:1955 (69 yo F)Acc No.[id number]:02/16/2024 Progress Note Patient:Amanda CASSIDY Provider:?Irene Juarez DPM :1955???Age:68 Y???Sex:Female D ate:02/16/2024 Address:[address] [place], [place] [id number] Pcp:Azam Parekh MD Subjective: * Chief Complaints: * ??? * Medical History:? Objective: * Vitals:? Assessment: Plan: * Treatment: * Images: * The named appointment provid er may or may not be the originator of this progress note, and it is not deemed complete until electronically signed by the appointment provider. Sign off status: Pending * Provider:?Irene Juarez DPM Date:?2023 Generated for Vishal brower/Lakshmi/eTransmitting on:?09/12/2024 09:56 AM EST
--- OUTSIDE RECORDS SUMMARY | 2024-09-12 14:05 | XMS_ITS | Encounter Summary ---
Author Organization [facility] Address [address] [place] [address] Care Team Providers Care Jacquard Loom Weaver Name Role Phone Azam Parekh Primary Care Provider [phone] Papo Dominguez STAFFING RECRUITER Unavailable Unavailabl e Vishal Schuler Unavailable Unavailable Encounter Details Date Type Department Care Team (Late st Contact Info) Description 08/10/2020 Scanned Document [address] [place] [phone] Provider, Generic Social History Tobacco Use Types [...] on filedocumented in this encounter Care Teams Jacquard Loom Weaver Relationship Specialty Start Date End Date Azam Parekh [address] [facility] [address] [place] [address] PCP - General 04/24/19 Papo Dominguez APRN [address] [facility] [address] [place] [address] Nurse Practitioner Endocrinology 05/09/19 Vishal Schuler 89[address] [facility] [place] [address] [place] [address] Physician Ophthalmology 05/09/19 documented as of this encounter
== END 2024-09-12 11:34 | disposition home or self-care (01) ==
LOC: HO.LAB 11:33
PROVIDERS: PCP Internal Medicine; Visit Provider Urology
DX: N39.0 Urinary tract infection, site not specified (principal); B96.20 Unspecified Escherichia coli [E. coli] as the cause of diseases classified elsewhere; B95.2 Enterococcus as the cause of diseases classified elsewhere
CPT/HCPCS: 81001; 87086; 87088; 87186

== ENCOUNTER 2024-10-31 11:35 | Outpatient (AMB) | payer MEDICARE, SELFPAY ==
--- NOTE | 2024-10-31 11:46 | A.OFFVIS_ITS ---
Intake Visit Reasons: 3m follow up Intake Note: Patient is present for 3M F/U Urology Medication:AMITRIPTYLINE Antibiotic Allergy:NONE Blood Thinner:APIXABAN Yard Person Required: No Allergies Iodinated Contrast Media [IVP DYE] Allergy (Intermediate, Verified 10/31/24 11:49) HIVES HPI Comments Details: Amanda TRAN is a very pleasant female. She is a patient of Dr Parekh. She is seen for the following urinary conditions - recurring urinary tract infection - overactive bladder UA today negative Follow-up from trial of amitriptyline Will plan to follow through with urodynamics Urine culture to be performed Has been using Estrace to 3 times per week - no recurrence of UT Estrace cream represcribed with coupon PVR 100 cc. 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 Crow 2014 [facility] Urinary Tract Infection:? Recurring UTIs are a result of her combination diabetes with diabetic cystopathy with incomplete bladder emptying in addition to psoriatic arthritis and immunosuppression therapy. She also had significant cystocele with repair and this contributes to slowed and incomplete emptying. ? They present for?followup evaluation for, recurrent UTI's.? The first infection began?Longstanding issue since prolapse repair with Dr. Arias Crow 2014. Anterior vaginal prolapse repair with vaginal sling ?Cystoscopy February 2019 for with biopsies showed follicular cystitis ?The combination of psoriatic arthritis managed with immunosuppression for methotrexate and Remicade may have lead to recurrence cystitis that was non responsive to therapy..? Therapy has included?symptomatic use of antibiotics ?, topical estrogen ? Prior cultures have shown?02/01 Microgen NGS - , E. coli Cephalosporin resistant.? Recent testing included?03/04 , a cystoscopy - follicular cystitis [facility], [facility] Medical History Hx of sleep apnea Elevated cholesterol PAF (paroxysmal atrial fibrillation) Hypothyroidism Dislocated patella PONV (postoperative nausea and vomiting) Osteoarthritis Psoriatic arthritis Hx of skin cancer, basal cell Diabetes ADD (attention deficit disorder) PVC (premature ventricular contraction) Surgical History Hx of colonoscopy History of bilateral knee arthroplasty Hx of LASIK H/O cystoscopy H/O knee surgery History of colon resection H/O abdominoplasty History of bladder surgery H/O: section Social History Patient Tobacco Use Status: Former Tobacco user Review of Systems Const Denies chills and Denies fever(s) Card Reports no additional complaints and Denies syncope Resp Denies cough GI Denies abdominal pain and Denies heartburn Reports as per HPI and Denies change in libido Neuro Denies syncope Psych Denies change in libido Endo Denies change in libido Physical Exam Const General: cooperative, healthy appearing, comfortable and no acute distress Orientation/consciousness: patient oriented x3 HEENT Face and sinus: Yes normal facial exam Mouth: moist mucous membranes Neck Neck: Yes normal visual inspection, Yes full ROM and Yes trachea midline Chest Chest palpation & inspection: normal inspection of the chest Resp Effort & Inspection: normal respiratory effort, able to speak in complete sentences and no respiratory distress GI Inspection: Yes normal to inspection Back/Spine/Pelvis Cervical Spine: normal cervical lordosis Thoracic/Lumbar Spine: thoracic and lumbar spine normal to inspection Skin General skin exam: no rashes or lesions noted Neuro General: patient oriented x3, gait normal, tone normal and moves all extremities Extrem General: Yes normal to inspection and Yes capillary refill normal Results AMB Urinalysis, Automated UA Leukoctes 70 Akilah/uL Last Edit by JEFFREY Real on 10/31/24 12:05 UA Nitrite Negative Last Edit by JEFFREY Real on 10/31/24 12:05 UA Urobilinogen 0.2 mg/dL Last Edit by JEFFREY Real on 10/31/24 12:0 5 UA Protein 15 mg/dL Last Edit by JEFFREY Real on 10/31/24 12:05 UA pH 6.0 Last Edit by JEFFREY Real on 10/31/24 12:05 UA Blood 0 Edilberto/uL Last Edit by JEFFREY Real on 10/31/24 12:05 UA Specific Bradford 1.015 Last Edit by JEFFREY Real on 10/31/24 12: 05 UA Ketone Negative Last Edit by JEFFREY Real on 10/31/24 12:05 UA Bilirubin 0 mg/dL Last Edit by JEFFREY Real on 10/31/24 12:05 UA Glucose 0 mg/dL Last Edit by JEFFREY Real on 10/31/24 12:05 Results Reviewed Results Reviewed: Laboratory Last Values Urine pH (Auto) 6.0 10/31/24 12:04 Specific Bradford (Auto) 1.015 10/31/24 12:04 Urine Protein (Auto) 15 mg/dL 10/31/24 12:04 Glucose (UA)(Auto) 0 mg/dL 10/31/24 12:04 Urine Ketones (Auto) Negative 10/31/24 12:04 Urine Blood (Auto) 0 Edilberto/uL 10/31/24 12:04 Urine Nitrite (Auto) Negative 10/31/24 12:04 Urine Bilirubin (Auto) 0 mg/dL 10/31/24 12:04 Urine Urobilinogen (Auto) 0.2 mg/dL 10/31/24 12:04 Leukocyte Esterase (Auto) 70 Akilah/uL 10/31/24 12:04 Assessment & Plan Assessment & Plan (1) Recurrent UTI: Code(s): N39.0 - Urinary tract infection, site not specified Category: Medical (2) Overactive bladder: Code(s): N32.81 - Overactive bladder Category: Medical (3) Neurogenic urinary bladder disorder: Code(s): N31.9 - Neuromuscular dysfunction of bladder, unspecified Category: Medical Plan Urodynamics, continue estradiol, six-month follow-up Orders: Orders AMB Urinalysis Automated Today Z13.9 - Encounter for screening, unspecified Urine Culture Today N39.0 - Urinary tract infection, site not specified Medications: Changed From estradiol 0.01%(0.1mg/gram) pea-sized to urethra 3 times a week 30 days 42.5 grams 2RF N39.0 - Urinary tract infection, site not specified To estradiol 0.01%(0.1mg/gram) pea-sized to urethra 3 times a week [id number] [facility] [id number] Member [id number] 30 days 42.5 grams 2RF N39.0 - Urinary tract infection, site not specified Patient Instructions: This note is constructed using voice recognition software. While every effort has been made to ensure accuracy structural architect errors may have been included. Imaging studies, laboratory and physical exam results were discussed and reviewed in detail. No major barriers to patient understanding were identified. An opportunity to ask questions regarding the treatment plan was provided. All questions were answered. The patient expressed understanding and agreement with the above treatment plan. The patient is aware they should contact our office by phone for worsening of their current condition or the appearance of new urologic symptoms. Compliance is encouraged with any medications and followup testing that is ordered. It is a privilege to participate in the urologic care of your patient. If you have any questions or concerns regarding treatment for the above conditions, or other urologic issues, please do not hesitate to contact me. The office telephone contact is [phone]. Sincerely, Dr Rod Ly MD, [facility] - Urology Compassionate Specialist Care for the Genitourinary System Coding Level of Care Code Est Pt Level 3 (09734) Complex EM visit Add On G2211 Diagnoses Recurrent UTI N39.0 Overactive bladder N32.81 Neurogenic urinary bladder disorder N31.9
--- OUTSIDE RECORDS SUMMARY | 2024-10-31 14:24 | XMS_ITS | Continuity of Care Document ---
Author Organization [facility] Address [address] [place] [address]- Care Team Providers Care Driver Education Instructor Name Role Phone Izabella MCDONOUGH, Azam Wyatt Primary Care Physician Encounter [facility] Date(s): 09/26/24 - 10/26/24 [facility] [address], [place] [address] Attending Physician: Juan A Goins Admitting Physician: Juan A Goins Referring Physician: Juan A Goins Encounter Type: Triage Allergies, Adverse Reactions, Alerts Substance Criticality Severity Reaction Reaction Severity Status iodinated radiocontrast dyes 1 Unable to assess criticality Persistent Severe rash Active Dogs 2 sneezing Active Dust 3 sneezing Active Horses 4 sneezing Active Other Environmental Allergy 5 sneezing Trees: unknown Active 1IVP dye 2This is per allergy testing 3Tested with allergy testing- no known response 4Per allergy testing-does not react to horses 5No known response - tested positive with allergy testing Immunizations Given and Recorded Vaccine Date Status Refusal Reason influenza virus vaccine, inactivated 05/06/23 Serg rded influenza virus vaccine, inactivated 05/03/22 Serg rded influenza virus vaccine, inactivated 05/11/21 Serg rded influenza virus vaccine, inactivated 10/20/20 Serg rded influenza virus vaccine, inactivated 04/23/18 Give n influenza virus vaccine, inactivated 1 05/19/17 Gi katarina influenza virus vaccine, inactivated 04/16/16 Give n influenza virus vaccine, inactivated 04/15/14 Give n influenza virus vaccine, inactivated 04/25/13 Give n influenza virus vaccine, inactivated 04/30/08 Give n influenza virus vaccine, inactivated 2 05/16/07 Gi katarina pneumococcal 20-valent conjugate vaccine 11/22/22 Given [id number] bivalent booster vax 11/22/22 Recorded [id number] bivalent booster vax 08/11/22 Recorded zoster vaccine, inactivated 01/18/22 Recorded zoster vaccine, inactivated 07/14/21 Recorded SARS-CoV-2 (COVID-19) mRNA-1273 vaccine 05/11/21 R ecorded SARS-CoV-2 (COVID-19) mRNA-1273 vaccine 10/16/20 R ecorded SARS-CoV-2 (COVID-19) mRNA-1273 vaccine 09/17/20 R ecorded tetanus/diphtheria/pertussis, acel(Tdap) 05/19/17 Given influ virus vac, H1N1, inactive(oldterm) 3 05/12/09 Given Pneumococcal Vacc (oldterm) 04/20/07 Given tetanus-diphtheria toxoids (Td) 4 03/04/07 Given 1Result Comment: [05/19/2017] [facility] [id number] 2Admin Note: SANOFI PASTEUR NO CONTRAINDICATIONS 3Admin Note: [employer] 4Admin Note: January or February Medications Acetaminophen By Mouth, PRN Pain , Mild, 0 Refills, Maintenance, 01/05/22 3:32:00 PM EDT, Partial fill upon patient request if the prescription is for a schedule II opioid drug. Start Date: 01/05/22 Status: Ordered Repeat number: 1 atorvastatin 40 mg oral tablet 1 tablet, By Mouth, Daily, # 90 tablet, 1 Refills, Maintenance, 05/14/24 10:42:00 PM EDT, [facility], 173, cm, 04/26/24 12:46:00 EDT, Height, 81.6, kg, 10/19/23 9:46:00 EDT, Dry Weight Start Date: 05/14/24 Status: Ordered Quantity: 90.0 Unit: tablet Repeat number: 1 benazepril 10 mg oral tablet 1 tablet = 10 mg, By Mouth, Daily, # 90 tablet, 3 Refills, Maintenance, 03/11/24 4:37:00 PM EDT, Tablet, [facility], Partial fill upon patient request if the prescription is for a schedule II opioid drug., 173, cm, 03/11/24 15:04:00 EDT, Height, 81.6, kg, 10/19/23 9:46:00 EDT, DryWeight Start Date: 03/11/24 Status: Ordered Quantity: 90.0 Unit: tablet Repeat number: 4 blood presure cuff blood presure cuff, See Instructions, # 1 each, Refills 0, Tot. Refills 0, Maintenance, one manual blood presure cuff, 01/19/22 12:03:00 PM EDT, Supply Start Date: 01/19/22 Status: Ordered Quantity: 1.0 Unit: each Repeat number: 1 buPROPion 150 mg/24 hours (XL) oral tablet, extended release 1 tablet = 150 mg, By Mouth, Every 24 hours, # 90 tablet, 3 Refills, Maintenance, 01/02/24 2:24:00 PM EDT, ER Tablet, [facility], this is in addition to 300 mg dose., 1 tablet By Mouth Every 24 hours, 173, cm, 01/02/24 13:56:00 EDT, Height, 81.6, kg, 10/19/23 9:46:00 EDT, Dry Weight Start Date: 01/02/24 Status: Ordered Quantity: 90.0 Unit: tablet Repeat number: 4 Centrum Silver oral tablet, chewable 0 Refills, Maintenance, 09/28/21 1:36:00 PM EDT, Partial fill upon patient request if the prescription is for a schedule II opioid drug. Start Date: 09/28/21 Status: Ordered Repeat number: 1 Creon 24,000 units oral delayed release capsule TAKE 2 CAPSULES BY MOUTH WITH MEALS AND 1 CAPSULE WITH SNACKS FOR 30 DAYS Start Date: 03/12/24 Status: Ordered Repeat number: 1 diltiazem 30 mg oral tablet 30 mg, 1, tablet, By Mouth, Daily, take as needed once daily for afib episodes, # 30 tablet, Refills 4, Tot. Refills 4, Maintenance, 7/6/22 11:49:00 AM EDT, Route to Pharmacy Electronically, [facility], I am aware of her amlodipine, 177.8, cm, 01/19/22 11:11:00 EDT, Height, 79.8,kg, 01/05/22 16:14:00 EDT, Dry Weight Start Date: 01/19/22 Status: Ordered Quantity: 30.0 Unit: tablet Repeat number: 5 Diphenoxylate 2.5 mg / Atropine 0.025 mg Tablet By Mouth, 4 times a day, PRN, Refills 0, Maintenance, as needed for loose stool, 02/05/24 10:26:00 AM EDT, Partial fill upon patient request if the prescription is for a schedule II opioid drug. Start Date: 02/05/24 Status: Ordered Repeat number: 1 Eliquis 5 mg oral tablet 1 tablet = 5 mg, By Mouth, 2 times a day, # 180 tablet, 3 Refills, Maintenance, 02/05/24 10:43:00 AMEDT, Tablet, [facility], Partial fill upon patient request if the prescription is for a schedule II opioid drug., 173, cm, 02/05/24 10:24:00 EDT, Height, 81.6, kg, 10/19/23 9:46:00EDT, Dry Weight Start Date: 02/05/24 Status: Ordered Quantity: 180.0 Unit: tablet Repeat number: 4 estradiol 10 mcg vaginal tablet 1 tablet = 10 mcg, Vaginally, Every Monday and , to start once patient is done with 14 day script, # 9 tablet, 11 Refills, Maintenance, 02/05/24 3:13:00 PM EDT, [facility], Partial fill upon patient request if the prescription is for a schedule II opioid drug., 173, cm, 02/05/24 13:44:00 EDT, Height, 81.6, kg, 10/19/23 9:46:00 EDT, Dry Weight Start Date: 02/05/24 Status: Ordered Quantity: 9.0 Unit: tablet Repeat number: 12 Freestyle Irving 14 day reader Freestyle Irving 14 day reader, See Instructions, # 1 each, Refills 11, Tot. Refills 11, Maintenance, DX Diabetes Mellitus E11.9 Use with Freestyle Irving sensors, 04/29/21 8:40:00 AM EDT, Compound, 174, cm, 11/12/20 15:54:00 EDT, Height, 87.2, kg, 06/29/20 6:49:00 EST, Dry Weight Start Date: 04/29/21 Status: Ordered Quantity: 1.0 Unit: each Repeat number: 12 Freestyle Irving 14 day sensor Freestyle Irving 14 day sensor, See Instructions, # 2 each, Refills 11, Tot. Refills 11, Maintenance, Diabetes Mellitus 2 E11.9 Change sensor every 14 days Use with Freestyle Irving reader, 05/21/21 3:27:00 PM EDT, Compound, 174, cm, 05/04/21 11:23:00 EDT, Height, 87.2, kg, 06/29/20 6:49:00 EST, Dry Weight Start Date: 05/21/21 Status: Ordered Quantity: 2.0 Unit: each Repeat number: 12 FREESTYLE IRVING 14DAY SEN/FLSH KIT FREESTYLE IRVING 14DAY SEN/FLSH KIT, See Instructions, # 2 each, 12 Refills, USE WITH FREE STYLE IRVING READER, DIRECTED CHANGE SENSOR EVERY 14 DAYS, 178, cm, 01/09/20 11:54:00 EDT, Height, 84.6, kg, 01/07/20 5:45:00 EDT, Dry Weight Start Date: 02/17/20 Status: Ordered Quantity: 2.0 Unit: each Repeat number: 1 golimumab 50 mg/4 mL intravenous solution = 2 mg/kg, IV Infusion, 0 Refills, Maintenance, 08/03/23 11:05:00 AM EST, Partial fill upon patient request if the prescription is for a schedule II opioid drug. Start Date: 08/03/23 Status: Ordered Repeat number: 1 levothyroxine 0.112 mg oral tablet 1 tablet, By Mouth, Daily, # 90 tablet, 1 Refills, Maintenance, 06/10/24 1:10:00 PM EST, [facility], 173, cm, 04/26/24 12:46:00 EDT, Height, 81.6, kg, 10/19/23 9:46:00 EDT, Dry Weight Start Date: 06/10/24 Status: Ordered Quantity: 90.0 Unit: tablet Repeat number: 1 lidocaine-prilocaine 2.5%-2.5% topical cream 1 application, Topically, Once, APPLY TO BOTH LEGS ONE HOUR PRIOR TO PROCEDURE AND WRAP LEG IN PLASTIC WRAP., # 30 Gm, 0 Refills, Soft Stop, 10/17/24 9:15:00 AM EDT, Cream, [facility], Partial fill upon patient request if the prescription is for a schedule II opioid drug., 1 application Topically Once,Instr:APPLY TO BOTH LEGS ONE HOUR PRIOR TO PROCEDURE AND WRAP LEG IN PLASTIC WRAP., 173, cm, 10/03/24 11:31:00 EDT, Height, 81.6, kg, 10/19/23 9:46:00 EDT, Dry Weight Start Date: 10/17/24 Status: Ordered Quantity: 30.0 Unit: g Repeat number: 1 LORazepam 0.5 mg oral tablet See Instructions, 1 TABLET EVENING PRIOR TO PROCEDURE;; 1 TABLET 1 HOUR PRIOR TO PROCEDURE, # 2 tablet, 0 Refills, Maintenance, 10/17/24 10:05:00 AM EDT, [facility], Partial fill upon patient request if the prescription is for a schedule II opioid drug., 173, cm, 10/03/24 11:31:00 EDT, Height, 81.6, kg, 10/19/23 9:46:00 EDT, Dry Weight Start Date: 10/17/24 Status: Ordered Quantity: 2.0 Unit: tablet Repeat number: 1 Lyumgracev KwikPen 100 units/mL injectable solution = 1 units, Subcutaneous Infusion, Once, sliding scale, 0 Refills, Maintenance, 07/25/22 1:52:00 PM EST, Partial fill upon patient request if the prescription is for a schedule II opioid drug. Start Date: 07/25/22 Status: Ordered Repeat number: 1 metFORMIN 1000 mg oral tablet 1 tablet, By Mouth, 2 times a day, # 180 tablet, 1 Refills, Maintenance, 07/11/23 8:28:00 AM EST, [facility], 176, cm, 11/22/22 8:05:00 EDT, Height, 78.7, kg, 02/14/22 10:55:00 EDT, Dry Weight Start Date: 07/11/23 Status: Ordered Quantity: 180.0 Unit: tablet Repeat number: 1 Denzel Parkinson SoloStar 300 units/mL subcutaneous solution = 16 units, Subcutaneous Injection, Daily, 0 Refills, Maintenance, 01/05/22 3:27:00 PM EDT, Partial fill upon patient request if the prescription is for a schedule II opioid drug. Start Date: 01/05/22 Status: Ordered Repeat number: 1 Trulicity Pen 0.75 mg/0.5 mL subcutaneous solution 2 mL, 0 Refill(s), INJECT 0.75 MG 0.5 ML) UNDER THE SKIN EVERY 7 DAYS, 0 Refills, 06/27/24 1:34:00 PM EST, Partial fill upon patient request if the prescription is for a schedule II opioid drug. Start Date: 06/27/24 Status: Ordered Repeat number: 1 ZyrTEC 10 mg oral tablet 1 tablet = 10 mg, By Mouth, Daily, PRN as needed seasonally, 0 Refills, Maintenance, 05/24/18 3:52:12 PM EST Start Date: 05/24/18 Status: Ordered Repeat number: 1 Problem List Condition Confirmation Course Effective Dates Status H ealth Status Informant Attention deficit disorder Confirmed Active Hypertension 401.9 Confirmed Active Secondary hypercoagulable state Confirmed Active Hyperlipidemia Confirmed Active Latent tuberculosis Confirmed Active Insomnia Confirmed Active Stenosis of left carotid artery greater than 50% Confirmed 2020 Active Chest cold Confirmed Active Type 2 diabetes mellitus with diabetic neuropathy Confirmed Active Positive QuantiFERON-TB Gold test 1 Confirmed 09/01/15 Active Osteoarthritis of knee Confirmed Active Paroxysmal atrial fibrillation Confirmed Active General medical exam Confirmed Active Medicare annual wellness visit, subsequent Confirmed Active Psoriatic arthritis Confirmed Active Depression, major, recurrent Confirmed Active Sacral nerve stimulator present Confirmed Active Diabetes mellitus, type 2, with diabetic nephropathy Confirmed Active 1Patient due to start INH/B6 for LTBI 11/2015 Social History Social History Type Response Smoking Status Former smoker; Other : quit 28yrs ago; entered on: 12/06/16 Sex Sex Representation Female (finding) Implantable Device List Procedure Provider Procedure Date Device Type Site Insertion Sacral Nerve Stimulator Stage Segundo MCDONOUGH, Clare Mendieta 02/14/22 Unknown Buttock Device Identifier Serial Number Lot or Batch Number Manufacturing Date Expiration Date Distinct Identification Code MRI Safety Implantable Status Assigning Authority Unknown Unknown [id number] Unknown 10/27/22 Unknown Unknown Active Idalmis dukes Patient Care team information Care Team Personnel Name: Azam Parekh MD Position: [facility] Physician - Primary Care Member Role: PCP Address: [address] [place] [phone]- Telecom: Name: Elva Armstrong RN Position: S RN Member Role: Primary Care Nurse Name: Joe Mehta RN Position: [facility] RN Member Role: Primary Care Nurse Care Team Related Persons Name: CHEIKH RTAN Name: FILOMENA TRAN Name: ELLA GONZALEZ Insurance Providers Guarantor name: ARNOLD TRAN Health Plan Information #: 1 Payer: [facility] MEDICARE ADV HMO Member Number: NA Policy Number: NA Group Number: NA
--- OUTSIDE RECORDS SUMMARY | 2024-10-31 14:24 | XMS_ITS ---
Author Organization [facility] Address [address] [place] [address] Care Team Providers Care Toaster Element Repairer Name Role Phone Izabella MCDONOUGH, Azam Primary Care Provider Unavailab nestor Juarez Irene Unavailable [phone] Encounters Encounter Location Date Provider Diagnosis [facility] [address] [place] [address] 02/16/2024 Irene Juarez Plan Of Treatment Next Appt Details Provider Name:Irene Juarez , 04/02/2025 08:00:00 AM, [address] [place], [address], Progress Notes * Erika TRANOB:1955 (69 yo F)Acc No.[id number]:02/16/2024 Progress Note Patient:Amanda CASSIDY Provider:?Irene Juarez DPM :1955???Age:68 Y???Sex:Female D ate:02/16/2024 Address:[address] [place] [address] Pcp:Azam Parekh MD Subjective: * Chief Complaints: [...] Juarez DPM Date:?2023 Generated for Vishal brower/Lakshmi/eTransmitting on:?10/31/2024 02:24 PM EDT
--- OUTSIDE RECORDS SUMMARY | 2024-10-31 14:24 | XMS_ITS | Encounter Summary ---
Author Organization [facility] Address [address] [place] [address] Care Team Providers Care Sample Processor Name Role Phone Azam Parekh Primary Care Provider [phone] Papo Dominguez APRN Unavailable Unavailabl e Vishal Schuler Unavailable Unavailable Encounter Details Date Type Department Care Team (Late st Contact Info) Description 06/06/2019 Scanned Document [facility] Endocrinology [address] [place] [phone] Papo Dominguez APRN Social History Tobacco Use Types Packs/Day Years Used Date Smoking Tobacco: Former Cigarettes Smokeless Tobacco: Former Alcohol Use Standard Drinks/Week Comments Yes 0 (1 standard drink = 0.6 oz pur e alcohol) Comments Unknown Sex and Gender Information Value Date Recorded Sex Assigned at Not on file Legal Sex Female 3:28 PM EDT Gender Identity Not on file Sexual Orientation Not on file documented as of this encounter Plan of Treatment Not on file documented as of this encounter Visit Diagnoses Not on filedocumented in this encounter Care Teams Sample Processor Relationship Specialty Start Date End Date Azam Parekh [address] [place] [address] PCP - General 04/24/19 Papo Dominguez APRN [address] [facility] [address] [place] [address] Nurse Practitioner Endocrinology 05/09/19 Vishal Schuler [address] [facility] [address] [place] [address] Physician Ophthalmology 05/09/19 documented as of this encounter
--- OUTSIDE RECORDS SUMMARY | 2024-10-31 14:24 | XMS_ITS ---
Author Organization [facility] Address [address] [place] [address] [place] [phone] Care Team Providers Care Gasoline Dragline Operator Name Role Phone Azam Parekh MD Primary Care Provider UnavailJaquan Gómez Jr [phone] REASON FOR VISIT rectal bleeding,abnormal ugi series Encounters Encounter Location Date Provider Diagnosis [facility] [address] [place] [id number] 03/19/2024 Jaquan Daniel Jr Rectal bleeding K62.5 ; Diarrhea R19.7 and Abnormal UGI series R93.3 Assessments Encounter Date Diagnosis (ICD Code) Assessment Notes Treatment Notes Treatment Clinical Notes Section Notes 03/19/2024 Rectal bleeding (ICD-10 - K62.5) 03/19/2024 Diarrhea (ICD-10 - R19.7) 03/19/2024 Abnormal UGI series (ICD-10 - R93.3) Plan Of Treatment Next Appt Details Provider Name:Jaquan pierce Jr, 09/29/2025 11:00:00 AM, [address] [place] [address], [address], [place], [phone], Progress Notes * ARNOLD TRAN EDOB:[birth year] (69 yo F)Acc No.[id number]:03/19/2024 EGD and COL/MAC Patient:?ARNOLD TRAN Provider:?Jaquan Daniel MD :1955???Age:68 Y???Sex:Female D ate:03/19/2024 Address:[address] [place], [place] [id number] Pcp:Azam Parekh MD Subjective: * Chief Complaints: * ???1. Rectal bleeding,abnorm al ugi series. * Medical History:? Objective: * Vitals:? Assessment: * Assessment: 1.?Rectal bleeding - K62.5 ( Primary)???2.?Diarrhea - R19.7???3.?Abnormal UGI series - R93.3??? Plan: * Treatment: * Procedure Codes:?98180 COLON OSCOPY AND BIOPSY, 46267 UPPER GI ENDOSCOPY, BIOPSY * * The named appointment provid er may or may not be the originator of this progress note, and it is not deemed complete until electronically signed by the appointment provider. Sign off status: Pending * Provider:?Jaquan Daniel MD Date:?0 03/19/2024 Generated for Vishal brower/Lakshmi/eTransmitting on:?10/31/2024 02:24 PM EDT
--- OUTSIDE RECORDS SUMMARY | 2024-10-31 14:24 | XMS_ITS ---
Author Organization [facility] Address [address] [place] [address] Care Team Providers Care Furniture Upholsterer Name Role Phone Izabella MCDONOUGH, Azam Primary Care Provider UnavailJaquan Gómez Jr Unavailable [phone] Allergies Allergen (clinical drug ingredient) Drug/Non Drug Allergy documented on EMR Reaction Allergy Type Onset Date Status IVP DYE (uncoded) Unknown Allergy Ac tive REASON FOR VISIT Patient presents today for acid reflux Medications Medication SIG (Take, Route, Frequency, Duration) Notes Start Date End Date Status Lantus SoloStar 100 UNIT/ML ADMINISTER 16 UNITS UNDER THE SKIN EVERY NIGHT Subcutaneous for 90 Not-Taking Multi Vitamin - 1 tablet Orally Once a day for 30 day(s) 10/09/2023 Active Toujeo Max SoloStar 300 UNIT/ML INJECT SUBCUTANEOUSLY UP TO 25 UNITS DAILY Subcutaneous for 72 Active Creon 84037-15920 UNIT 2 capsules with m eals and one with snacks Orally for 30 days 02/02/2024 Not-Taking Atorvastatin Calcium 40 MG TAKE 1 TABLET BY MOUTH DAILY Oral for 90 Days Active Trulicity 0.75 MG/0.5ML INJECT 0.5MLS BY MOUTH UNDER THE SKIN EVERY 7 DAYS Subcutaneous for 28 Days Active Eliquis 5 MG TAKE ONE TABLET BY MOUTH TWICE A DAY Oral for 90 Active Benazepril HCl 10 MG TAKE ONE TABLET BY MOUTH EVERY DAY Oral for 30 Active buPROPion HCl ER (XL) 450 MG 1 tablet in the morning Orally Once a day Active Diphenoxylate-Atropine 2.5-0.025 MG 1 tablet 4 times daily as needed for diarrhea Orally for 30 days as needed 07/19/2023 Active HumaLOG KwikPen 200 UNIT/ML null Diagnosis Unavailable Subcutaneous for 75 Active FreeStyle Irving 14 Day Sensor - for 28 Active Simponi 100 MG/ML 1 mL Subcutaneous fo r 28 day(s) Active Levothyroxine Sodium 112 MCG TAKE 1 TABLET BY MOUTH DAILY Oral for 90 Active Atorvastatin Calcium 40 MG TAKE ONE TABLET BY MOUTH EVERY DAY Oral for 30 Active metFORMIN HCl 1000 MG TAKE ONE TABLET BY MOUTH TWICE A DAY Oral for 30 Active Social History Tobacco Use: Social History Observation Description Date Details (start date - stop date) Former Smoker NA - NA Tobacco Use/Smoking Question Answer Notes Patient is a former smoker How long has it been since you last smoked? > 10 years Alcohol Screen Question Answer Notes Did you have a drink containing alcohol in the p ast year? No Points 0 Interpretation Negative Problems Problem Type SNOMED Code ICD Code Onset Dates Problem Status W/U Status Risk Notes Problem 638951780 Gastroesophageal reflux disease with esophagitis, unspecified whether hemorrhage (K21.00) Active confirmed Problem 30799197 Incontinence of feces, unspecified fecal incontinence type (R15.9) Active confirmed Vital Signs Blood pressure systolic 111 mm Hg 09/27/19 25 Blood pressure diastolic 11 mm Hg 025 Height 70 in 09/26/2024 Weight 190 lbs 09/26/2024 BMI 27.26 kg/m2 09/26/2024 Encounters Encounter Location Date Provider Diagnosis [facility] [address] [facility] [address] [place] [phone] 09/26/2024 Jaquan Daniel Jr Gastroesophageal reflux disease with esophagitis, unspecified whether hemorrhage K21.00 and Incontinence of feces, unspecified fecal incontinence type R15.9 Assessments Encounter Date Diagnosis (ICD Code) Assessment Notes Treatment Notes Treatment Clinical Notes Section Notes 09/26/2024 Gastroesophageal reflux disease with esophagitis, unspecified whether hemorrhage (ICD-10 - K21.00) We discussed gastroesophageal reflux disease today. At this time, she is asymptomatic and we did not recommend further treatment. With respect to her lower GI symptoms, we recommended fiber supplementation. She is advised to follow-up with her provider regarding the sacral nerve stimulator. This does not seem likely to be causing her right upper quadrant discomfort. She will let us know how she is doing in a month. Follow-up in 1 year, sooner if necessary. 09/26/2024 Incontinence of feces, unspecified fecal incontinence type (ICD-10 - R15.9) We discussed gastroesophageal reflux disease today. At this time, she is asymptomatic and we did not recommend further treatment. With respect to her lower GI symptoms, we recommended fiber supplementation. She is advised to follow-up with her provider regarding the sacral nerve stimulator. This does not seem likely to be causing her right upper quadrant discomfort. She will let us know how she is doing in a month. Follow-up in 1 year, sooner if necessary. Plan Of Treatment Next Appt Details Follow Up: 1 Year, Reason: Provider Name:Jaquan pierce Jr, 09/29/2025 11:00:00 AM, [address] [place] [address], [address], [place], [phone], Progress Notes * MARC ARNOLD EDOB:[birth year] (69 yo F)Acc No.[id number]:09/26/2024 Progress Notes Patient:?JOSEMAHENDRA ARNOLD Yoselin Provider:?Jaquan Daniel MD :1955???Age:69 Y???Sex:Female D ate:09/26/2024 Address:[address] [place] [address] Pcp:Azam Parekh MD Subjective: * Chief Complaints: * ???1. Patient presents today for acid reflux. * HPI: ???New symptom(s):? Arnold is a pleasant 69-year-old woman seen today in follow-up of gastroesophageal reflux disease and diarrhea. We saw her last for upper endoscopy and colonoscopy in March. Endoscopy was normal. Biopsies showed esophagitis but no Peter's esophagus or H. pylori. She was prescribed omeprazole but did not take this as she did not feel the need to. Colonoscopy was normal and biopsies showed no evidence of microscopic colitis. Today she reports no reflux symptoms. She has no dysphagia, hematemesis, or melena. Weight has been up a little bit, appetite has been stable. She has hard stools followed by diarrhea, although she reports the symptoms have been better in the past couple of weeks. She has been following a more low-carb diet. She has had previous sacral nerve stimulator placement. She has not followed up with colorectal surgery or the company international sales representative on this and is not sure if it is working. She has had some right rib area discomfort that has been intermittent and questions whether the nerve stimulator could be causing this. * Medical History:?Diabetes me llitus, Premature ventricular contractions, Urinary incontinence, UTIs, Seasonal allergies, Psoriatic arthritis, Colon polyps, colonoscopy 04/09, normal including biopsies, 5-year follow-up for history of polyps., Paroxysmal atrial fibrillation, Hyperlipidemia, Hypertension, EGD 04/09, normal, esophagitis on biopsies, patient declined treatment. * Surgical History:?bladder wills spension , section , left knee replacement , right knee replacement , Colon resection . * Hospitalization/Major Diagno stic Procedure:?Emergency room, wing, GI bleeding, normal labs and CT 10/19/2023. * Family History:?Father: dece ased, diagnosed with Heart disease.?Mother: , diagnosed with Heart disease, Diabetes.?Siblings: alive, brother stroke, diagnosed with Diabetes.? no known hx of colon cancer,polyps or liver ds. * Social History:?Tobacco Use:?Tobacco Use/Smoking?Patient is a?former smoker,?How long has it been since you last smoked??> 10 years.?Drugs/Alcohol:?Alcohol Screen?Did you have a drink containing alcohol in the past year??No,?Points?0,?Interpretation?Negative.?Miscellaneous:?Marital status: . Occupation: retired. * Medications:?Taking Simponi 100 MG/ML Solution Prefilled Syringe 1 mL Subcutaneous , Taking FreeStyle Irving 14 Day Sensor - Miscellaneous , Taking metFORMIN HCl 1000 MG Tablet TAKE ONE TABLET BY MOUTH TWICE A DAY Oral , Taking Atorvastatin Calcium 40 MG Tablet TAKE ONE TABLET BY MOUTH EVERY DAY Oral , Taking Levothyroxine Sodium 112 MCG Tablet TAKE 1 TABLET BY MOUTH DAILY Oral , Taking HumaLOG KwikPen 200 UNIT/ML Solution Pen-injector null Diagnosis Unavailable Subcutaneous , Taking Diphenoxylate-Atropine 2.5-0.025 MG Tablet 1 tablet 4 times daily as needed for diarrhea Orally , Notes to Pharmacist: as needed, Taking buPROPion HCl ER (XL) 450 MG Tablet Extended Release 24 Hour 1 tablet in the morning Orally Once a day , Taking Benazepril HCl 10 MG Tablet TAKE ONE TABLET BY MOUTH EVERY DAY Oral , Taking Eliquis 5 MG Tablet TAKE ONE TABLET BY MOUTH TWICE A DAY Oral , Taking Toujeo Max SoloStar 300 UNIT/ML Solution Pen-injector INJECT SUBCUTANEOUSLY UP TO 25 UNITS DAILY Subcutaneous , Taking Multi Vitamin - Tablet 1 tablet Orally Once a day , Taking Trulicity 0.75 MG/0.5ML Solution Auto-injector INJECT 0.5MLS BY MOUTH UNDER THE SKIN EVERY 7 DAYS Subcutaneous , Taking Atorvastatin Calcium 40 MG Tablet TAKE 1 TABLET BY MOUTH DAILY Oral , Not-Taking/PRN Creon 19438-66830 UNIT Capsule Delayed Release Particles 2 capsules with meals and one with snacks Orally , Not-Taking/PRN Lantus SoloStar 100 UNIT/ML Solution Pen-injector ADMINISTER 16 UNITS UNDER THE SKIN EVERY NIGHT Subcutaneous , Discontinued Lisinopril 5 MG Tablet Oral , Discontinued Leflunomide 20 MG Tablet TAKE ONE TABLET BY MOUTH EVERY DAY Oral , Discontinued Diphenoxylate-Atropine 2.5-0.025 MG Tablet 1 Orally Four times a day as needed for diarrhea , Discontinued Omeprazole 20 MG Capsule Delayed Release 1 capsule 30 minutes before morning meal Orally Once a day , Medication List reviewed and reconciled with the patient * Allergies:?IVP DYE. Objective: * Vitals:?Wt: 190 lbs, Ht: 70 in, BMI: 27.26 Index, BP: 111/11 mm Hg, Wt-k.18. * Examination: ???General Examination: ???On examination today, she appears well. Skin is anicteric. Lungs are clear. Heart shows a regular rate and rhythm. Abdomen is soft without focal masses or tenderness. Extremities are without edema. Examination of the subcostal area shows no tenderness or pain. Assessment: * Assessment: 1.?Gastroesophageal reflux d isease with esophagitis, unspecified whether hemorrhage - K21.00 (Primary)???2.?Incontinence of feces, unspecified fecal incontinence type - R15.9??? We discussed gastroesophagea l reflux disease today. At this time, she is asymptomatic and we did not recommend further treatment. With respect to her lower GI symptoms, we recommended fiber supplementation. She is advised to follow-up with her provider regarding the sacral nerve stimulator. This does not seem likely to be causing her right upper quadrant discomfort. She will let us know how she is doing in a month. Follow-up in 1 year, sooner if necessary. Plan: * Treatment: * Procedure Codes:?3017F COLOR ECTAL CA SCREEN DOC REV, G9903 Pt scrn tbco id as non user, G8785 BP SCR NOT PRFRM REC REASON NOS * Preventive Medicine:? ??Counseling:?Care goal follow-up plan:?Above Normal BMI Follow-up?Giving encouragement to exercise,?BMI management provided?Yes.? ??Urinary Incontinence:?Urinary Incontinence?Assessment:?Present,?Plan of care documented:?Yes.? ??Screenings:?Fall Risk Screening?Fall Risk Assessment:?No falls in the past year,?Screening:?No falls in the past year,?Assessment:?Not performed, no reason specified,?Plan of Care:?Not documented, no reason specified.? * Follow Up:?1 Year * * Sign off status: Completed true * Provider:?Jaquan Daniel MD Date:?0 09/26/2024 Generated for Vishal brower/Lakshmi/eTransmitting on:?10/31/2024 02:23 PM EDT History and Physical Notes * HPI (History of Present Illness) Category Sub-Category Detail Notes Category Not es New symptom(s) Arnold is a pleasant 69-year-old woman seen today in follow-up of gastroesophageal reflux disease and diarrhea. We saw her last for upper endoscopy and colonoscopy in March. Endoscopy was normal. Biopsies showed esophagitis but no Peter's esophagus or H. pylori. She was prescribed omeprazole but did not take this as she did not feel the need to. Colonoscopy was normal and biopsies showed no evidence of microscopic colitis. Today she reports no reflux symptoms. She has no dysphagia, hematemesis, or melena. Weight has been up a little bit, appetite has been stable. She has hard stools followed by diarrhea, although she reports the symptoms have been better in the past couple of weeks. She has been following a more low-carb diet. She has had previous sacral nerve stimulator placement. She has not followed up with colorectal surgery or the company international sales representative on this and is not sure if it is working. She has had some right rib area discomfort that has been intermittent and questions whether the nerve stimulator could be causing this. Examination Category Sub-Category Detail Notes Category Not es General Examination On exami nation today, she appears well. Skin is anicteric. Lungs are clear. Heart shows a regular rate and rhythm. Abdomen is soft without focal masses or tenderness. Extremities are without edema. Examination of the subcostal area shows no tenderness or pain.
--- OUTSIDE RECORDS SUMMARY | 2024-10-31 14:24 | XMS_ITS | Continuity of Care Document ---
Author Organization [facility] Address [address] [place] [address]- Care Team Providers Care Line Service Person Name Role Phone Azam Parekh MD Primary Care Physician [phone] Encounter [facility] Date(s): 06/28/24 - 10/26/24 [facility] [address] [place] [id number] Attending Physician: Haleigh Goyal NP Admitting Physician: Haleigh Goyal NP Referring Physician: Azam Parekh MD Encounter Type: Pre-Outpt Allergies, Adverse Reactions, Alerts Substance Criticality Severity [...] 05/11/21 Serg rded influenza virus vaccine, inactivated 05/05/20 Serg rded influenza virus vaccine, inactivated 04/23/18 Give n influenza virus vaccine, inactivated 1 05/19/17 Gi katarina influenza virus vaccine, inactivated 04/16/16 Give n influenza virus vaccine, inactivated 04/15/14 Give n influenza virus vaccine, inactivated 04/25/13 Give n influenza virus vaccine, inactivated 04/30/08 Give n influenza virus vaccine, inactivated 2 05/16/07 Gi katarina pneumococcal 20-valent conjugate vaccine 11/22/22 Given [id number] bivalent booster vax 11/22/22 Recorded [id number]-[id number] bivalent booster vax 08/11/22 Recorded zoster vaccine, inactivated 01/18/22 Recorded zoster vaccine, inactivated 07/14/21 Recorded SARS-CoV-2 (COVID-19) mRNA-1273 vaccine 05/11/21 R ecorded SARS-CoV-2 (COVID-19) mRNA-1273 vaccine 10/16/20 R ecorded SARS-CoV-2 (COVID-19) mRNA-1273 vaccine 09/17/20 R ecorded tetanus/diphtheria/pertussis, acel(Tdap) 05/19/17 Given influ virus vac, H1N1, inactive(oldterm) 3 05/12/09 Given Pneumococcal Vacc (oldterm) 04/20/07 Given tetanus-diphtheria toxoids (Td) 4 03/04/07 Given 1Result Comment: [05/19/2017] [facility] [id number] 2Admin Note: SANOFI PASTEUR NO CONTRAINDICATIONS 3Admin [...] tablet, Refills 4, Tot. Refills 4, Maintenance, 01/19/22 11:49:00 AM EDT, Route to Pharmacy Electronically, [id number], I am aware of her [...] Maintenance, 02/05/24 10:43:00 AMEDT, Tablet, [facility], Partial fill upon patient request [...] Type Site Insertion Sacral Nerve Stimulator Stage Clare Raymond MD 02/14/22 Unknown Buttock Device Identifier Serial Number Lot or Batch Number Manufacturing Date Expiration Date Distinct Identification Code MRI Safety Implantable Status Assigning Authority Unknown Unknown [id number] Unknown 10/27/22 Unknown Unknown Active Unk nown Patient Care team information Care Team Personnel Name: Izabella MCDONOUGH, Azam Wyatt Position: [facility] Physician - Primary Care Member Role: PCP Address: [address] [place] [id number] Telecom: Name: Elva Armstrong RN Position: S RN Member Role: Primary Care Nurse Name: Joe Mehta RN Position: [facility] RN Member Role: Primary Care Nurse Care Team Related Persons Name: CHEIKH TRAN Name: FILOMENA TRAN Name: ELLA GONZALEZ Insurance Providers Guarantor name: ARNOLD GARCIAMAHENDRA Health Plan Information #: 1 Payer: [facility] MEDICARE ADV HMO Member Number: [id number] Policy Number: NA Group Number: [id number] Health Plan Information #: 2 Payer: [facility] MEDICARE ADV HMO Member Number: [id number] Policy Number: NA Group Number: [id number]
--- OUTSIDE RECORDS SUMMARY | 2024-10-31 14:25 | XMS_ITS | Encounter Summary ---
Author Organization [facility] Address [address] [place] [address] Care Team Providers Care Head Waiter/Waitress Banquet Name Role Phone Azam Parekh Primary Care Provider [phone] Papo Dominguez APRN Unavailable Unavailabl e Vishal Schuler Unavailable Unavailable Encounter Details Date Type Department Care Team (Late st Contact Info) Description 08/08/[address] [facility] Endocrinology [address] [place] [phone] Papo Dominguez APRN Social History Tobacco Use [...] on filedocumented in this encounter Care Teams Head Waiter/Waitress Banquet Relationship Specialty Start Date End Date Azam Parekh [address] [place] [address] PCP - General 04/24/19 Papo Dominguez APRN [address] [facility] [address] [place] [address] Nurse Practitioner Endocrinology 05/09/19 Vishal Schuler [address] [facility] [address] [place] [address] Physician Ophthalmology 05/09/19 documented as of this encounter
--- OUTSIDE RECORDS SUMMARY | 2024-10-31 14:25 | XMS_ITS | Encounter Summary ---
Author Organization [facility] Address [address] [place] [address] Care Team Providers Care Valuer Name Role Phone Azam Parekh Primary Care Provider [phone] Papo Dominguez APRN Unavailable Unavailabl e Vishal Schuler Unavailable Unavailable Reason for Visit * Reason Comments Medication Refill Encounter Details Date Type Department Care Team (Late st Contact Info) Description 04/06/2020 Refill [facility] Endocrinology [address] [phone] Papo Dominguez APRN Controlled type 2 diabetes [...] (HCC) documented in this encounter Care Teams Valuer Relationship Specialty Start Date End Date Azam Parekh [address] [place] [address] [address] [place] [address] PCP - General 04/24/19 Papo Dominguez APRN [address] [facility] [address] [place] [address] Nurse Practitioner Endocrinology 05/09/19 Vishal Schuler [address] [facility] [address] [place] [address] Physician Ophthalmology 05/09/19 documented as of this encounter
--- OUTSIDE RECORDS SUMMARY | 2024-10-31 14:25 | XMS_ITS ---
Author Name [facility] Organization Unknown Care Team Organization Name Specialty Phone Email Start Date End RUST
--- OUTSIDE RECORDS SUMMARY | 2024-10-31 14:25 | XMS_ITS | Encounter Summary ---
Author Organization [facility] Address [address] [place] [address] Care Team Providers Care Dental Equipment Repairer Name Role Phone Azam Parekh Primary Care Provider [phone] Papo Dominguez APRN Unavailable Unavailabl e Vishal Schuler Unavailable Unavailable Encounter Details Date Type Department Care Team (Late st Contact Info) Description 03/12/2020 Scanned Document [facility] Endocrinology [address] [place] [phone] Papo Dominguez APRN Social History Tobacco Use [...] on filedocumented in this encounter Care Teams Dental Equipment Repairer Relationship Specialty Start Date End Date Azam Parekh [address] [facility] 2 [place] [address] PCP - General 04/24/19 Papo Dominguez APRN [address] [facility] 2 [place] [address] Nurse Practitioner Endocrinology 05/09/19 Vishal Schuler [address] [facility] [address] [place] [address] Physician Ophthalmology 05/09/19 documented as of this encounter
--- OUTSIDE RECORDS SUMMARY | 2024-10-31 14:25 | XMS_ITS | Encounter Summary ---
Author Organization [facility] Address [address] [place] [address] Care Team Providers Care Geotechnical Intern Name Role Phone Azam Parekh Primary Care Provider [phone] Papo Dominguez APRN Unavailable Unavailabl e Vishal Schuler Unavailable Unavailable Encounter Details Date Type Department Care Team (Late st Contact Info) Description 05/09/2019 Scanned Document [facility] Endocrinology [address] [place] [phone] Papo Dominguez APRN Social History Tobacco Use [...] on filedocumented in this encounter Care Teams Geotechnical Intern Relationship Specialty Start Date End Date Azam Parekh [address] [place] [address] PCP - General 04/24/19 Papo Dominguez APRN [address] [facility] [address] [place] [address] Nurse Practitioner Endocrinology 05/09/19 Vishal Schuler [address] [facility] [address] [place] [address] Physician Ophthalmology 05/09/19 documented as of this encounter
--- OUTSIDE RECORDS SUMMARY | 2024-10-31 14:25 | XMS_ITS | Encounter Summary ---
Author Organization [facility] Address [address] [place] [address] Care Team Providers Care General Office Assistant Name Role Phone Azam Parekh Primary Care Provider [phone] Papo Dominguez APRN Unavailable Unavailabl e Vishal Schuler Unavailable Unavailable Reason for Visit * Reason Comments Medication Refill Encounter Details Date Type Department Care Team (Late st Contact Info) Description 04/09/2020 Refill [facility] Endocrinology [address] [phone] Papo Dominguez, EUGENE Type 2 diabetes mellitus with hyperglycemia, without [...] (HCC) documented in this encounter Care Teams General Office Assistant Relationship Specialty Start Date End Date Azam Parekh [address] [facility] [address] [place] [address] PCP - General 04/24/19 Papo Dominguez APRN [address] [facility] [address] [place] [address] Nurse Practitioner Endocrinology 05/09/[address] [facility] [address] [place] [address] Physician Ophthalmology 05/09/19 documented as of this encounter
--- OUTSIDE RECORDS SUMMARY | 2024-10-31 14:25 | XMS_ITS ---
Author Organization [facility] Address [address] [place] [address] [place] [phone] Care Team Providers Care Wig Comber Name Role Phone Azam Parekh MD Primary Care Provider Unavailab nestor Daniel Jr, Jaquan Sorenson REASON FOR VISIT pathology Medications Medication SIG (Take, Route, Fr equency, Duration) Notes Start Date End Date Status Omeprazole 20 MG 1 capsule 30 minutes before morning meal Orally Once a day for 30 day(s) 03/27/2024 Active Encounters Encounter Location Date Provider Diagnosis [facility] [address] [place] [address] [place] [phone] 03/27/2024 Jaquan Daniel Jr Plan Of Treatment Medication Medication Name Sig Start Date Stop Date Notes Omeprazole 20 MG 1 capsule 30 minutes before morning meal Orally Once a day for 30 day(s) 03/27/2024 Next Appt Details Provider Name:Jaquan pierce Jr, 09/29/2025 11:00:00 AM, [address] [place] [address], [address], [place], [phone], Progress Notes * ARNOLD TRAN EDOB:[birth year] (68 yo F)Acc No.[id number]:03/27/2024 Patient:?ARNOLD TRAN :1955???Age:68 Y???Sex:Female Address:[address] [place] [address], [address] * Refills? Start Omeprazole Capsule Delayed Release, 20 MG, Orally, 30, 1 capsule 30 minutes before morning meal, Once a day, 30 day(s), Refills=1 * true * Date:? Generated for Vishal brower/Lakshmi/Clarice on:?10/31/2024 02:25 PM EDT
--- OUTSIDE RECORDS SUMMARY | 2024-10-31 14:25 | XMS_ITS | Encounter Summary ---
Author Organization [facility] Address [address] [place] [address] Care Team Providers Care Alteration Inspector Name Role Phone Azam Parekh Primary Care Provider [phone] Papo Dominguez APRN Unavailable Unavailabl e Vishal Schuler Unavailable Unavailable Encounter Details Date Type Department Care Team (Late st Contact Info) Description 06/06/2019 Scanned Document [facility] Endocrinology [address] [place] [phone] Ppao Dominguez APRN Social History Tobacco Use Types [...] on filedocumented in this encounter Care Teams Alteration Inspector Relationship Specialty Start Date End Date Azam Parekh [address] [place] [address] PCP - General 04/24/19 Papo Dominguez APRN [address] [facility] [employer] [facility] [address] [place] [address] Nurse Practitioner Endocrinology 05/09/19 Vishal Schuler [address] [facility] [address] [place] [address] Physician Ophthalmology 05/09/19 documented as of this encounter
--- OUTSIDE RECORDS SUMMARY | 2024-10-31 14:25 | XMS_ITS | Encounter Summary ---
Author Organization [facility] Address [address] [place] [address] Care Team Providers Care Executive Housekeeper Name Role Phone Azam Parekh Primary Care Provider [phone] Papo Dominguez APRN Unavailable Unavailabl e Vishal Schuler Unavailable Unavailable Encounter Details Date Type Department Care Team (Late st Contact Info) Description 05/09/2019 Scanned Document [facility] Endocrinology [address] [place] [phone] Papo Dominguez APRN Social History Tobacco Use [...] on filedocumented in this encounter Care Teams Executive Housekeeper Relationship Specialty Start Date End Date Azam Parekh [address] [place] [address] PCP - General 04/24/19 Papo Dominguez APRN [address] [facility] [address] [place] [address] Nurse Practitioner Endocrinology 05/09/19 Vishal Schuler [address] [facility] [address] [place] [address] Physician Ophthalmology 05/09/19 documented as of this encounter
--- OUTSIDE RECORDS SUMMARY | 2024-10-31 14:25 | XMS_ITS | Encounter Summary ---
Author Organization [facility] Address [address] [place] [address] Care Team Providers Care Engraving Patternmaker Name Role Phone Azam Parekh Primary Care Provider [phone] Papo Dominguez APRN Unavailable Unavailabl e Vishal Schuler Unavailable Unavailable Encounter Details Date Type Department Care Team (Late st Contact Info) Description 06/06/2019 Scanned Document [facility] Endocrinology [address] [place] [phone] Papo Dominguez APRN Social History Tobacco Use [...] on filedocumented in this encounter Care Teams Engraving Patternmaker Relationship Specialty Start Date End Date Azam Parekh [address] [place] [address] PCP - General 04/24/19 Papo Dominguez APRN [address] [facility] [address] [place] [address] Nurse Practitioner Endocrinology 05/09/19 Vishal Schuler [address] [facility] [address] [place] [address] Physician Ophthalmology 05/09/19 documented as of this encounter
--- OUTSIDE RECORDS SUMMARY | 2024-10-31 14:26 | XMS_ITS | Encounter Summary ---
Author Organization [facility] Address [address] [place] [address] Care Team Providers Care Septic Tank Installer Name Role Phone Azam Parekh Primary Care Provider [phone] Papo Dominguez APRN Unavailable Unavailabl e Vishal Schuler Unavailable Unavailable Encounter Details Date Type Department Care Team (Late st Contact Info) Description 11/06/2019 Scanned Document [facility] Endocrinology [address] [phone] Papo Dominguez APRN Social History Tobacco Use [...] on filedocumented in this encounter Care Teams Septic Tank Installer Relationship Specialty Start Date End Date Azam Parekh [address] [facility] [address] [place] [address] PCP - General 04/24/19 Papo Dominguez APRN [address] [facility] [address] [place] [address] Nurse Practitioner Endocrinology 05/09/19 Vishal Schuler [address] [facility] [address] [place] [address] Physician Ophthalmology 05/09/19 documented as of this encounter
--- OUTSIDE RECORDS SUMMARY | 2024-10-31 14:26 | XMS_ITS | Patient Health Record ---
Author Organization [facility] Address [address] [place] [address] Care Team Providers Care Vp Hr Diversity Name Role Phone Izabella MCDONOUGH, Kristen Primary Care Provider Jaquan Marshall Jr Unavailable Allergies Allergen (clinical drug ingredient) Drug/Non Drug Allergy documented on EMR Reaction Allergy Type Onset Date Status IVP DYE (uncoded) Unknown Allergy Ac tive Results Component Value Reference Range Notes GI PANEL Reviewed date:11/13/2023 08:55:35 AM Interpretation: Performing Lab:[facility], [address] [place] [phone] Notes/Report: Campylobacter Not Detected Not Detect. Plesiomonas shigelloides Not Detected Not Detect. Salmonella Not Detected Not Detect. Vibrio Not Detected Not Detect. Vibrio Cholerae Not Detected Not Detect. Yersinia enterocolitica Not Detected Not Detect. E. coli EAEC Not Detected Not Detect. E. coli EPEC Not Detected Not Detect. E. coli ETEC Not Detected Not Detect. E. coli STEC Not Detected Not Detect. E. coli O157 Not applicable Not Detect. E. coli containing the O157 antigen are a subset of Shiga-like toxin-producing E. coli (STEC). Shigella sp./EIEC Not Detected Not Detect. Cryptosporidium Not Detected Not Detect. Cyclospora cayetanensis Not Detected Not Detect. Entamoeba histolytica Not Detected Not Detect. Giardia lamblia Not Detected Not Detect. Adenovirus F 40/41 Not Detected Not Detect. Astrovirus Not Detected Not Detect. Norovirus GI/GII Not Detected Not Detect. Rotavirus A Not Detected Not Detect. Sapovirus Not Detected Not Detect. All results must be correlated with clinical findings. Negative results do not exclude the possibility of gastrointestinal infection and should not be used as the sole basis for diagnosis, treatment, or other management decisions. Virus, bacteria, and parasite nucleic acid may persist in vivo independently of organism viability. Additionally, some organisms may be carried symptomatically. Detection of organism targets does not imply that the corresponding organisms are infectious or are the causative agents for clinical symptoms. There is a risk of false negative values due to the presence of sequence variants in the gene targets of the assay, amplification inhibitors in specimens, or inadequate numbers of organisms for amplification. The identification of several diarrheagenic E. coli pathotypes has historically relied upon phenotypic characteristics. This panel targets genetic determinants characteristic of most pathogenic strains, but may not detect all strains having phenotypic characteristics of a pathotype. The performance of this test has not been established for monitoring treatment of infection with any of the panel organisms. This assay is performed by Multiplexed PCR, utilizing the [employer] Array. Complete Blood Count Auto Di ff Reviewed date:11/23/2023 09:56:23 AM Interpretation: Performing Lab:[facility], [address] [place] [address] Notes/Report: White Blood Count 6.3 4.8-10.8 X10*3/uL Red Blood Count 4.33 4.20-5.50 X10*6/uL Hemoglobin 13.2 12.0-16.0 g/dl Hematocrit 40.4 37.0-47.0 % Mean Corpuscular Volume 93.3 80.0-98.0 fL Mean Corpuscular Hemoglobin 30.5 27.0-33.0 pg Mean Corpuscular HGB Conc 32.7 31.0-35.0 g/dl Red Cell Distribution Width 12.3 11.0-16.0 % Platelet Count 430 160-400 X10*3/uL Mean Platelet Volume 8.8 9.4-12.3 fL Neutrophils Percent Auto 46.0 45-73 % Imm Gran Pct Auto 0.3 0.0-0.4 % Lymphocytes Percent Auto 39.5 20-40 % Monocytes Percent Auto 11.0 2-11 % Eosinophils Percent Auto 2.1 0-4 % Basophils Percent Auto 1.1 0-2 % NRBC Pct Auto 0.0 0.0-0.2 /100WBC Neutrophils Absolute Auto 2.9 2.0-8.3 x10*3/uL Imm Gran Abs Auto 0.02 0.00-0.03 X10*3/uL Lymphocytes Absolute Auto 2.5 1.2-4.9 X10*3/uL Monocytes Absolute Auto 0.7 0.1-1.2 X10*3/uL Eosinophils Absolute Auto 0.1 0.0-0.4 X10*3/uL Basophils Absolute Auto 0.1 0.0-0.2 X10*3/uL NRBC Abs Auto 0.000 0.0-0.012 X10*3/uL Liver Panel Reviewed date:11/23/2023 09:56:15 AM Interpretation: Performing Lab:[address] [address] Notes/Report: Bilirubin Total 0.9 0.0-1.0 mg/dL Bilirubin Direct 0.3 0.0-0.5 mg/dL Aspartate Amino Transferase 22 5-31 U/L Alanine Aminotransferase 22 0-31 U/L Total Protein 6.9 6.5-8.0 g/dL Albumin Level 3.9 3.5-5.0 g/dL Alkaline Phosphatase 81 39-117 U/L Lipase Reviewed date:11/23/2023 09:55:59 AM Interpretation: Performing Lab:[address] [address] Notes/Report: Lipase 16 8-78 U/L US abdomen complete Reviewed date:11/30/2023 10:22:51 AM Interpretation: Performing Lab: Notes/Report: [address] [address] Ultrasound Report Signed Patient: Amanda Villalba MR#: [id number] 9 : 1955 Acct:[id number] Age/Sex: 68 / F ADM Date: 11/22/23 Loc: HO.US Attending Dr: Jaquan Daniel MD Ordering Physician: Jaquan Daniel MD Date of Service: 11/22/23 Procedure(s): US abdomen complete Accession Number(s): [id number] cc: Jaquan Daniel MD; KRISTEN CARDENAS MD EXAMINATION: US ABDOMEN COMPLETE CLINICAL INFORMATION: Diarrhea. Right upper quadrant pain. COMPARISON: None available. TECHNIQUE: Real-time imaging of the abdominal viscera. Limited visualization due to bowel gas. FINDINGS: PANCREAS: Limited visualization of pancreatic tail and head. Imaged portion of pancreatic body is unremarkable. ABDOMINAL AORTA: Atherosclerosis. Limited visualization. INFERIOR VENA CAVA: Visualized portions are normal. LIVER: Increased hepatic parenchymal heterogeneity and echogenicity could be associated with hepatocellular disease/hepatic steatosis and substantially limits visualization. Correlation with liver function tests and clinical exam recommended to determine further management. GALLBLADDER: Multiple mobile gallstones. Borderline gallbladder wall thickening of 3 mm. COMMON BILE DUCT: Normal in caliber measuring 0.4 cm in diameter. RIGHT KIDNEY: No hydronephrosis. No renal calculi. Limited visualization. The kidney measures 11.4 cm in maximum dimension. LEFT KIDNEY: No hydronephrosis. No renal calculi. Limited visualization. The kidney measures 13.4 cm in maximum dimension. SPLEEN: Normal. The spleen measures 8.6 cm in maximum dimension. FREE FLUID: None. US/US abdomen complete IMPRESSION: 1. Increased hepatic parenchymal heterogeneity and echogenicity could be associated with hepatocellular disease/hepatic steatosis and substantially limits visualization. Correlation with liver function tests and clinical exam recommended to determine further management. 2. Cholelithiasis. Borderline gallbladder wall thickening of 3 mm. 3. Atherosclerosis in the abdominal aorta. Dictated By: Baylee Lucas MD Signed By: <Electronically signed by Baylee Lucas MD in OV> 11/27/23 1312 DD/ 0830 TD/TT: Rv Detailer: [place] [address] Ultrasound Report Signed Patient: Ernie Villalba MR#: [id number] 9 : 1955 Acct:[id number] Age/Sex: 68 / F ADM Date: 11/22/23 Loc: HO.US Attending Dr: Valerie Daniel MD Ordering Physician: Jaquan Daniel MD Date of Service: 11/22/23 Procedure(s): US abdomen complete Accession Number(s): [id number] cc: Jaquan Daniel MD; KRISTEN CARDENAS MD EXAMINATION: US ABDOMEN COMPLETE CLINICAL INFORMATION: Diarrhea. Right uppe r quadrant pain. COMPARISON: None available. TECHNIQUE: Real-time imaging of the abdominal viscera. Limited visualizatio n due to bowel gas. FINDINGS: PANCREAS: Limited visualization of pancreatic tail and head. Imaged portion of pancreati c body is unremarkable. ABDOMINAL AORTA: Atherosclerosis. Limited visualization. INFERIOR VENA CAVA: Visualized portions are normal. LIVER: Increased hepatic parenchymal heterogeneity and echogenicity could be associated with hepatocellular disease/hepatic steatosis and substantially limits visualization. Correlation with liver function tests and clinical e xam recommended to determine further management. GALLBLADDER: Multipl e mobile gallstones. Borderline gallbladder wall thickening of 3 mm. COMMON BILE DUCT: Normal in caliber measuring 0.4 cm in diameter. RIGHT KIDNEY: No hydronephrosis. No renal calculi. Limited visualization. The kidney measures 11.4 cm in maximum dimension. LEFT KIDNEY: No hydronephrosis. No renal calculi. Limited visualization. The kidney measures 13.4 cm in maximum dimension. SPLEEN: Normal. The spleen measures 8.6 cm in maximum dimension. FREE FLUID: None. US/US abdomen complete IMPRESSION: 1. Increased hepatic parenchymal heterogeneity and echogenicity could be associated with hepatocellular disease/hepatic steatosis and substantially limits visualization. Correlation with liver function tests and clinical e xam recommended to determine further management. 2. Cholelithiasis. Borderline gallbladder wall thickening of 3 mm. 3. Atherosclerosis i n the abdominal aorta. Dictated By: Baylee Lucas MD Signed By: <Electronically signed by Baylee Lucas MD in OV> 11/27/23 1312 DD/ 0830 TD/TT: Rv Detailer: FL upper GI w air w SBFT Reviewed date:01/17/2024 08:18:42 AM Interpretation: Performing Lab: Notes/Report: [address] [address] Fluoroscopy Report Signed Patient: Amanda Villalba MR#: [id number] 9 : 1955 Acct:[id number] Age/Sex: 68 / F ADM Date: 01/11/24 Loc: HO.XRAY Attending Dr: Jaquan Daniel MD Ordering Physician: Jaquan Daniel MD Date of Service: 01/11/24 Procedure(s): FL upper GI w air w SBFT Accession Number(s): [id number] cc: Jaquan Daniel MD; KRISTEN CARDENAS MD EXAMINATION: XR FLUOROSCOPY UPPER GI WITH SMALL BOWEL SERIES CLINICAL INFORMATION: Diarrhea COMPARISON: None TECHNIQUE: Fluoroscopic air contrast upper GI examination was performed utilizing standard techniques with thin and thick barium and effervescent granules. Numerous spot images were obtained. FINDINGS: UPPER GI: There is ballooning of hypopharynx with moderate cricopharyngeal achalasia present. A small Zenker's diverticulum is present. A small anterior cervical web is present just below the hypopharynx (RF 1-24). Dual and single contrast images of the esophagus demonstrate normal caliber, and contour. There is felinization of the distal esophageal mucosa. No evidence of stricture, mass, or ulcerations identified. Esophageal peristalsis was mildly disorganized. A small type I hiatal hernia is present. No significant gastroesophageal reflux was seen during the course of the examination and on reflux views. Dual contrast and single contrast images of the stomach demonstrated a normal contour. There are a few foci of contrast pooling in the fundus of the stomach that may represent small superficial aphthous ulcers. No masses are seen. Contrast freely passed into the gastric antrum and duodenal bulb without delay.Single and air-contrast images of the duodenal bulb demonstrate no abnormality. The duodenal sweep has a normal appearance, course, and mucosal fold appearance. A diverticulum is seen in the second portion of the duodenum. No malrotation. SMALL BOWEL SERIES: Road Maker view demonstrates normal bowel gas pattern. There are anastomotic sutures noted overlying the left sacrum in the mid pelvis. There is a spinal stimulator device overlying the right iliac bone, with lead extending into the right second sacral foramen. There are mild to moderate degenerative changes in both hip joints and both SI joints. Similar changes in the lower lumbar spine. No organomegaly or abnormal soft tissue calcifications. Moderate fecal material is noted in the ascending colon. Lung bases appear clear. The imaged jejunum and ileum have normal fold pattern and caliber. No masses, filling defects, or strictures. Contrast is observed in the colon to the level of the splenic flexure at 30 minutes, somewhat rapid transit. FLUOROSCOPY TIME: 5 minutes 39 seconds Number of Spot Images: 20 Number of Cine: 10 DOSE AREA PRODUCT: 4379 uGy-m2 (microgray-meter squared) FL/FL upper GI w air w SBFT IMPRESSION: 1. There is ballooning of the hypopharynx with moderate cricopharyngeal achalasia present. No laryngeal penetration or aspiration was observed. 2. Small Zenker's diverticulum 3. Small anterior cervical web is present just below the hypopharynx. 4. Felinization of the distal esophageal mucosa. This is a benign finding associated gastroesophageal reflux. While reflux was not seen during the examination, suspect at least mild to moderate. 5. Small type I hiatal hernia 6. There are a few foci of contrast pooling in the fundus the stomach that may represent small superficial aphthous ulcers. Recommend correlation with EGD. 7. A small diverticulum is seen in the second portion the duodenum. 8. There is rapid transit of the barium column, with contrast observed in the splenic flexure at 30 minutes. Etiology of rapid transit is unclear. Otherwise, normal small bowel. This procedure was performed by Bandar yBrd PA-C, and supervised by Dr. Kearney Dictated By: Bandar Byrd Signed By: <Electronically signed by Bandar Byrd in OV> 01/12/24 1454 <Electronically signed by Jasmeet Kearney MD in OV> 01/12/24 1457 DD/ 0940 TD/TT: Rv Detailer: [place] [address] Fluoroscopy Report Signed Patient: Ernie Villalba MR#: [id number] 9 : 1955 Acct:[id number] Age/Sex: 68 / F ADM Date: 01/11/24 [facility] Att[facility] Dr: Valerie Daniel MD Ordering Physician: Jaquan Daniel MD Date of Service: 01/11/24 Procedure(s): FL upp er GI w air w SBFT Accession Number(s): [id number] cc: Jaquan aDniel MD; KRISTEN CARDENAS MD EXAMINATION: XR FLUOROSCOPY UPPER GI WITH SMALL BOWEL SERIES CLINICAL INFORMATION: Diarrhea COMPARISON: None TECHNIQUE: Fluoroscopic air contrast upper GI examination was performed utilizing standard techniques with thin and thick barium and effervescent granules. Numerous s pot images were obtained. FINDINGS: UPPER GI: There is ballooning of hypopharynx with moderate cricopharyngeal achalasia present. A small Zenker's diverticulum is present. A small anterior cervical we b is present just below the hypopharynx (RF 1-24). Dual and single contrast images of the esophagus demonstrate normal caliber, and contour . There is felinization of the distal esophageal mucosa. No evidence of stricture, mass, or ulcerations identified. Esophageal peristals is was mildly disorganized. A small type I hiata l hernia is present. No significant gastroesophageal ref lux was seen during the course of the examination and on reflux views. Dual contrast and single contrast images of the stomach demonstrated a normal contour. Ther e are a few foci of contrast pooling in the fundus of the stomach that may represent small superficial aphthous ulcers. No masses are seen. Contrast freely passed into the gastric antrum and duodenal bulb withou t delay.Single and air-contrast images of the duodenal bulb demonstrate no abnormality. The duodenal sweep has a normal appearance, course, and mucosal fold appearance. A diverticulum is seen in the secon d portion of the duodenum. No malrotation. SMALL BOWEL SERIES: Road Maker view demonstra fay normal bowel gas pattern. There are anastomotic sutures noted overly ing the left sacrum in the mid pelvis. There is a spinal stimulator device overlying the right iliac bone, with lead extending into the right second sacral foramen. There are mild to moderate degenerativ e changes in both hip joints and both SI joints. Similar changes in t he lower lumbar spine. No organomegaly or abnormal soft tissue calcifications. Moderate fecal material is noted in the ascending colon. Carroll g bases appear clear. The imaged jejunum a nd ileum have normal fold pattern and caliber. No masses, filling defects, or strictures. Contrast is observed in the colon to the level o f the splenic flexure at 30 minutes, somewhat rapid transit. FLUOROSCOPY TIME: 5 minutes 39 seconds Number of Spot Image s: 20 Number of Cine: 10 DOSE AREA PRODUCT: 4379 uGy-m2 (microgray-meter squared) FL/FL upper GI w air w SBFT IMPRESSION: 1. There is ballooni ng of the hypopharynx with moderate cricopharyngeal achalasia present. N o laryngeal penetration or aspiration was observed. 2. Small Zenker's diverticulum 3. Small anterior cervical web is present just below the hypopharynx. 4. Felinization of t he distal esophageal mucosa. This is a benign finding associated gastroesophageal reflux. While reflux was not seen during the examinati on, suspect at least mild to moderate. 5. Small type I hiat al hernia 6. There are a few f oci of contrast pooling in the fundus the stomach that may represent small superficial aphthous ulcers. Recommend correlation with EGD. 7. A small diverticu lum is seen in the second portion the duodenum. 8. There is rapid transit of the barium column, with contrast observed in the splenic flexu re at 30 minutes. Etiology of rapid transit is unclear. Otherwise, normal small bowel. This procedure was performed by Bandar Byrd PA-C, and supervised by Dr. Kearney Dictated By: Bandar Byrd Signed By: <Electronically signed by Bandar Byrd in OV> 01/12/24 1454 <Electronically sign ed by Jasmeet Kearney MD in OV> 01/12/24 1457 DD/ 0940 TD/TT: Rv Detailer: Pancreatic Elastase-1 Reviewed date:02/02/2024 09:06:31 AM Interpretation: Performing Lab:[facility], [address] [place] [phone] Notes/Report: Pancreatic Elastase-1 175 Adult and Pediatric Reference Ranges for Pancreatic Elastase-1: Normal: >200 mcg/g Moderate Pancreatic Insufficiency: 100-200 mcg/g Severe Pancreatic Insufficiency: <100 mcg/g Elastase-1 (E-1) assay results are expressed in mcg/g, which represent mcg E1/g feces. It is not necessary to interrupt enzyme substitution therapy. THIS TEST WAS PERFORMED AT: [employer] [address] [place] [address] KULDEEP AVALOS MD,PHD,ZEUS Fecal Fat Qualitative Reviewed date:02/02/2024 09:06:42 AM Interpretation: Performing Lab:[facility], [address] [place] [phone] Notes/Report: Fecal Fat Qualitative Normal Normal THIS TEST WAS PERFORMED AT: [employer] [facility] [address] [place] [address] DAVIE PA MD,PHD Glucose, Whole Blood Reviewed date:03/19/2024 03:37:58 PM Interpretation: Performing Lab:[facility], [address], [place] [address] Notes/Report: Glucose, Whole Blood 119 60-115 mg/dL METER # : [id number] Pathology Reviewed date:03/27/2024 08:37:09 AM Interpretation: Performing Lab:[facility], [address], [place] [address] Notes/Report: --- Name: Amanda Villalba Age/Sex: 68/F [facility] 1955 [id number] Attend Dr: Jaquan Daniel MD Re03/19/24 Status : [facility] Location: [facility] Disch: --- SPEC : [id number] RECD : 03/19/24 STATUS: SILAS KNIGHT NUM: [id number] BISI: 03/19/24 [facility] DR: Jaquan Daniel MD ENTERED: 03/19/24- 22 SP TYPE: Surgical OTHR DR: KRISTEN CARDENAS MD ORDERED: HE Stain/9, Gross Micro L4/4, IHC, Special st. 2/2, H. pylori, AB/PAS/2 Diagnosis A. Duodenum, biopsy: Small intestinal mucosa within normal limits. B. Stomach, antrum, biopsy: Antral-type mucosa with mild chronic inactive inflammation; no Helicobacter organisms seen. C. EG junction, biopsy: - Active esophagitis (maximum eosinophil count 15 per high powered field). - No glandular epithelium identified. D. Colon, sigmoid, biopsy: - Colonic mucosa wit hin normal limits. - Small detached fragment of ulcer material. Clinical History Pre-Op Dx: Abnormal findings on diagnostic imaging of other parts of the digestive tract Post-Op Dx: Abnormal findings upper; normal colonoscopy Microscopic Description A-D. Microscopic sections examined. No metaplastic changes are seen, supported by AB/PAS stains (A and B); no Helicobacter organisms are seen, supported by H. pylori immunostain (B). Material Received A. Duodenal bx B. Antral bx C. EG junction bx D. Sigmoid bx's Gross Description Received in four parts. Part A: Received in formalin labeled duodenal bx's are 3 holt-pink irregular tissue fragments ranging fr om than 0.1-0.25 cm, submitted in toto in a cassette labeled A. Part B: Received in formalin labeled ?antral bx's? are 2 holt irregular tissue fragments measuring 0.2 and 0. 25 cm, submitted in toto in a cassette labeled B. Part C: Received in formalin labeled ?EG junction bx? are 3 holt and mendez-white irregular CONTINUED ON NEXT PAGE --- Name: Amanda Villalba Age/Sex: 68/F : 1955 [id number] [id number] Attend Dr: Jaquan Daniel MD Re03/19/24 Status : [facility] Location: [facility] Disch: --- SPEC : [id number] RECD : 03/19/24 STATUS: SILAS KNIGHT NUM: [id number] BISI: 03/19/24 [facility] DR: Jaquan Daniel MD ENTERED: 03/19/24 SP TYPE: Surgical OTHR DR: KRISTEN CARDENAS MD ORDERED: HE Stain/9, Gross Micro L4/4, IHC, Special st. 2/2, H. pylori, AB/PAS/2 Gross Description (Continued) and rectangular tiss ue fragments ranging from 0.1 to 0.35 cm, submitted in toto in a cassette labeled C. Part D: Received in formalin labeled ?sigmoid bx's? are 2 holt-pink irregular and rectangular tissue fragments measuring 0.2 and 0.35 cm, submitted in toto in a cassette labeled D. CEDS Special studies orde red and performed: Immunostain for H. pylori on B; AB/PAS stains on A and B Copies To: Jaquan Daniel MD [facility] [address] [place] [address] [address] [place] [address] KRISTEN CARDENAS MD [address] [place] [phone] --- Signed (signature on file) Jayy Potter MD 03/21/24 1405 --- END OF REPORT Reason For Referral No Information Medications Medication SIG (Take, Route, Frequency, Duration) Notes Start Date End Date Status FreeStyle Irving 14 Day Sensor - for 28 Active Simponi 100 MG/ML 1 mL Subcutaneous fo r 28 day(s) Active Multi Vitamin - 1 tablet Orally Once a day for 30 day(s) 10/09/2023 Active Tougraceo Max SoloStar 300 UNIT/ML INJECT SUBCUTANEOUSLY UP TO 25 UNITS DAILY Subcutaneous for 72 Active Eliquis 5 MG TAKE ONE TABLET [...] null Diagnosis Unavailable Subcutaneous for 75 Active Levothyroxine Sodium 112 MCG TAKE 1 TABLET BY MOUTH DAILY Oral for 90 Active Lantus SoloStar 100 UNIT/ML ADMINISTER 16 UNITS UNDER THE SKIN EVERY NIGHT Subcutaneous for 90 Not-Taking Atorvastatin Calcium 40 MG TAKE ONE TABLET BY MOUTH EVERY DAY Oral for 30 Active Creon 02339-16868 UNIT 2 capsules with m eals and one with snacks Orally for 30 days 02/02/2024 Not-Taking metFORMIN HCl 1000 MG TAKE ONE TABLET BY MOUTH TWICE A DAY Oral for 30 Active Atorvastatin Calcium 40 MG TAKE 1 TABLET BY MOUTH DAILY Oral for 90 Days Active Trulicity 0.75 MG/0.5ML INJECT 0.5MLS BY MOUTH UNDER THE SKIN EVERY 7 DAYS Subcutaneous for 28 Days Active Immunizations Vaccine Route Administration Date Status Comme nts Influenza Unknown 04/16/2021 Administered Influenza Unknown 05/09/2023 Administered Social History Tobacco Use: Social History [...] Problem Status W/U Status Risk Notes Problem 43655294 Rectal bleeding (K62.5) Active confirmed Problem 054969939 Change in bowel habit (R19.4) Active confirmed Problem 782734848 Personal history of colonic polyps (Z86.010) Active confirmed Problem 478732109 Abnormal UGI ser ies (R93.3) Active confirmed Problem 55018088 Diarrhea, unspecified type (R19.7) Active confirmed Problem 90388603 Incontinence of feces, unspecified fecal incontinence type (R15.9) Active confirmed Problem 340603414 RUQ pain (R10.11) Active confirmed Problem 617180075 Gastroesophageal reflux disease with esophagitis, unspecified whether hemorrhage (K21.00) Active confirmed Vital Signs Temperature 95.7 degrees Fahrenheit 01/24/2024 Blood pressure diastolic 11 mm Hg 09/26/2024 Height 70 in 09/26/2024 Blood pressure systolic 111 mm Hg 09/26/2024 Weight 190 lbs 09/26/2024 BMI 27.26 kg/m2 09/26/2024 Encounters Encounter Location Date Provider Diagnosis [facility] [address] [place] [phone] 03/19/2024 Jaquan Daniel Jr Rectal bleeding K62.5 ; Diarrhea R19.7 and Abnormal UGI series R93.3 [facility] [address] [place] [phone] 01/24/2024 Jaquan Daniel Jr Rectal bleeding K62.5 ; Abnormal UGI series R93.3 and Diarrhea, unspecified type R19.7 [facility] [address] [place] [phone] 09/26/2024 Jaquan Daniel Jr Gastroesophageal reflux disease with esophagitis, unspecified whether hemorrhage K21.00 and Incontinence of feces, unspecified fecal incontinence type R15.9 [facility] [address] [place] [phone] 11/13/2023 Jaquan Daniel Jr Diarrhea, unspecified type R19.7 [facility] [address] [place] [phone] 11/30/2023 Jaquan Daniel Jr [facility] [address] [place] [phone] 01/17/2024 Jaquna Daniel Jr [facility] [address] [place] [phone] 02/02/2024 Jaquan Daniel Jr [facility] [address] [place] [address] 02/02/2024 Jaquan Daniel Jr [facility] [address] [place] [address] 03/27/2024 Jaquan Daniel Jr Assessments Encounter Date Diagnosis (ICD Code) Assessment Notes Treatment Notes Treatment Clinical Notes Section Notes 03/19/2024 Rectal bleeding (ICD-10 - K62.5) 03/19/2024 Diarrhea (ICD-10 - R19.7) 01/24/2024 Rectal bleeding (ICD-10 - K62.5) We discussed he r symptoms today. We recommended use of Lomotil. She will have further evaluation with endoscopy and colonoscopy because of her symptoms, abnormal upper GI series, and rectal bleeding. We discussed risks and benefits of both procedures today. She understands these and agrees to proceed. She is advised to stop Eliquis 3 days before the procedure. She will take half of her long-acting insulin the night before the prep and the night before the procedure. Stool tests of pancreatic function will be obtained. 01/24/2024 Abnormal UGI series (ICD-10 - R93.3) Endoscopy material was printed We discussed her symptoms today. We recommended use of Lomotil. She will have further evaluation with endoscopy and colonoscopy because of her symptoms, abnormal upper GI series, and rectal bleeding. We discussed risks and benefits of both procedures today. She understands these and agrees to proceed. She is advised to stop Eliquis 3 days before the procedure. She will take half of her long-acting insulin the night before the prep and the night before the procedure. Stool tests of pancreatic function will be obtained. 09/26/2024 Incontinence of feces, unspecified fecal incontinence [...] in 1 year, sooner if necessary. 09/26/2024 Gastroesophageal reflux disease with esophagitis, unspecified [...] Follow-up in 1 year, sooner if necessary. 11/13/2023 Diarrhea, unspecified type (ICD-10 - R19.7) 03/19/2024 Abnormal UGI series (ICD-10 - R93.3) 01/24/2024 Diarrhea, unspecified type (ICD-10 - R19.7) We discussed he r symptoms today. We recommended use of Lomotil. She will have further evaluation with endoscopy and colonoscopy because of her symptoms, abnormal upper GI series, and rectal bleeding. We discussed risks and benefits of both procedures today. She understands these and agrees to proceed. She is advised to stop Eliquis 3 days before the procedure. She will take half of her long-acting insulin the night before the prep and the night before the procedure. Stool tests of pancreatic function will be obtained. Plan Of Treatment Pending Test Test Name Order Date LIVER PROFILE 11/13/2023 CBC w DIFF 11/13/2023 STOOL WBC 07/13/2023 OVA & PARASITES (O&P) 07/13/2023 PANCREATIC ELASTASE 11/13/2023 FECAL FAT QUAL 11/13/2023 XR GI SMALL BOWEL SERIES 11/13/2023 US ABD 10/09/2023 GI PANEL 07/13/2023 GI PANEL 10/09/2023 Future Test Test Name Order Date COLONOSCOPY 07/07/2021 LIPASE 11/15/2023 UPPER GI ENDOSCOPY 01/24/2024 COLONOSCOPY 01/24/2024 Next Appt Details Provider Name:Jaquan pierce Jr, 09/29/2025 11:00:00 AM, [address] [place] [address], [address], [place], [address], Insurance Providers Payer Name Payer Address Payer Phone Subscriber Number Group Number Insured Name Patient Relationship to Insured Coverage Start Date Coverage End Date [facility] [address] [facility] [place]AC[place] [phone] [id number] AMANDA VILLALBA Self - patient is the insured Medical (General) History Medical History History ICD Code diabetes mellitus Premature ventricular contractions Urinary incontinence, UTIs seasonal allergies Psoriatic arthritis Colon polyps, colonoscopy , normal including biopsies, 5-year follow-up for history of polyps. Paroxysmal atrial fibrillation Hyperlipidemia Hypertension EGD 04/09, normal, esophagitis on biopsie s, patient declined treatment Surgical History Surgery Date(Month/Year) Colon resection right knee replacement left knee replacement section bladder suspension Hospitalization History Reason Date(Month/Year) Emergency room, wing, GI bleeding, jey l labs and CT 10/19/2023
--- OUTSIDE RECORDS SUMMARY | 2024-10-31 14:26 | XMS_ITS ---
Author Organization [facility] [place] Address [address] [place] [address] Care Team Providers Care Makeup Sales Consultant Name Role Phone Azam Parekh MD Primary Care Provider UnavailIrene Mccann Unavailable [phone] Allergies Allergen (clinical drug ingredient) Drug/Non Drug [...] Ordered Date Performed Result Body Sit e 19617-ZAGH SKIN LESIONS, OVER 4 04/03/2024 N/A Encounters Encounter Location Date [facility] [address] [place] [address] 04/03/2024 Irene Juarez Type 2 diabetes jerod [...] INSTRUCTIONS.pdf) Pending Test Test Name Order Date 21532-TXYR SKIN LESIONS, OVER 4 04/03/20 24 Next Appt Details Follow Up: 1 Year, Reason: Provider Name:Irene Bowen Larry , 04/02/2025 08:00:00 AM, [address], [place], [address], Procedure Notes * Category Sub-Category Detail Notes Keratoma Treatment Parring or Cutting o f Benign Hyperkeratotic Lesion(s) (-57) More than 4 Lesions - The Benign hyperkeratotic lesions, as described above were pared, and/or cut utilizing a sterile 15 blade, tissue nippers, and/or dremel - 91638 Progress Notes * Erika TRANOB:1955 (68 yo F)Acc No.[id number]:04/03/2024 Progress Note Patient:Amanda Wang Provider:?Irene Juarez DPM :1955???Age:68 Y???Sex:Female D ate:04/03/2024 Address:[address] [place], [place] [phone] Pcp:Azam Parekh MD Subjective: * Chief Complaints: [...] 15 blade, tissue nippers, and/or dremel - 60450.? * Procedure Codes:?13054 TRIM SKIN LESIONS, OVER 4, Modifiers: XS [...] Juarez DPM Date:?2023 Generated for Vishal brower/Lakshmi/Clarice on:?10/31/2024 02:25 PM EDT History and Physical Notes * [...]
--- OUTSIDE RECORDS SUMMARY | 2024-10-31 14:26 | XMS_ITS | Encounter Summary ---
Author Organization [facility] Address [address] [place] [address] Care Team Providers Care Mine Inspector Name Role Phone Azam Parekh Primary Care Provider [phone] Papo Dominguez APRN Unavailable Unavailabl e Vishal Schuler Unavailable Unavailable Encounter Details Date Type Department Care Team (Late st Contact Info) Description 11/13/2019 Scanned Document [facility] Endocrinology [address] [phone] Papo Dominguez APRN Social History Tobacco Use [...] on filedocumented in this encounter Care Teams Mine Inspector Relationship Specialty Start Date End Date Azam Parekh [address] [facility] [address] [place] [address] PCP - General 04/24/19 Papo Dominguez APRN [address] [facility] [address] [place] [address] Nurse Practitioner Endocrinology 05/09/19 Vishal Schuler [address] [facility] [address] [place] [address] Physician Ophthalmology 05/09/19 documented as of this encounter
--- OUTSIDE RECORDS SUMMARY | 2024-10-31 14:26 | XMS_ITS | Encounter Summary ---
Author Organization [facility] Address [address] [place] [address] Care Team Providers Care Underground Truck Operator Name Role Phone Azam Parekh Primary Care Provider [phone] Papo Dominguez APRN Unavailable Unavailabl e Vishal Schuler Unavailable Unavailable Reason for Visit * Reason Comments Medication Refill Encounter Details Date Type Department Care Team (Late st Contact Info) Description 11/17/2019 Refill [facility] Endocrinology [address] [phone] Papo Dominguez APRN Type 2 diabetes mellitus [...] (HCC) documented in this encounter Care Teams Underground Truck Operator Relationship Specialty Start Date End Date Azam Parekh [address] [facility] [place] [address] PCP - General 04/24/19 Papo Dominguez APRN [address] [facility] 2 [facility] [place] [address] Nurse Practitioner Endocrinology 05/09/19 Vishal Schuler [address] [facility] [address] [place] [address] Physician Ophthalmology 05/09/19 documented as of this encounter
--- OUTSIDE RECORDS SUMMARY | 2024-10-31 14:26 | XMS_ITS | Patient Health Record ---
[facility] micha Parekh Address [address] [place] [address] Care Team Providers Care Network And Threat Support Specialist Name Role Phone Azam Parekh MD Primary Care Provider Unavailab AlvarezAltagraciae Unavailable [phone] Allergies Allergen (clinical drug ingredient) Drug/Non Drug [...] Polyneuropathy due to type 2 diabetes mellitus (864053892) Type 2 diabetes mellitus with diabetic polyneuropathy (E11.42) Active confirmed Problem Acquired hammer toe of right foot (1210956534976879 ) Hammer toe of right foot (M20.41) Active confirmed Problem Acquired hammer toe of left foot (3054770290416935 ) Hammer toe of left foot (M20.42) Active confirmed Problem Ulcer of foot (32399712) Ulcer of left foot, limited to breakdown of skin (L97.521) Active confirmed Problem Ulcer of foot (63823352) Neuropathic ulcer of left foot with fat layer exposed (L97.522) Active confirmed Response to treatment, Nonapplica ble Vital Signs Height 5ft 10 in in 04/03/2024 Weight 180 lbs 04/03/2024 BMI 25.82 kg/m2 04/03/2024 Procedures Procedure Date Ordered Date Performed Result Body Sit e 79116-HQNI SKIN LESIONS, OVER 4 04/03/2024 N/A Encounters Encounter Location Date [facility] [address] 04/03/2024 Irene Larry Type 2 diabetes jerod itus with diabetic polyneuropathy E11.42 ; Neuritis M79.2 ; Hammer toe of left foot M20.42 ; Hammer toe of right foot M20.41 and Xerosis of skin L85.[address] [facility] [address] 01/31/2024 Irene Black Assessments Encounter Date Diagnosis [...] Treatment Pending Test Test Name Order Date 66327- Debride <25 sq cm 03/17/2023 45392-QEUJZLQ SKIN/TISSUE 03/01/2023 65185-TFZL SKIN LESIONS, OVER 4 04/03/20 24 Next Appt Details Provider Name:Irene Bowen Larry , 04/02/2025 08:00:00 AM, [address] [facility], [place], [address], Insurance Providers Payer Name Payer Address Payer Phone Subscriber Number Group Number Insured Name Patient Relationship to Insured Coverage Start Date Coverage End Date [employer] [address] [place] [id number] Amanda Villalba Self - patient is the insured Medical (General) History Medical History History ICD Code Arthritis Cancer Cataracts Depression Diabetic Joint implants/screws High blood pressure Psoriasis Tuberculosis Headaches/Migraines Sleep apnea Surgical History Surgery Date(Month/Year) knee replacement colon resection fistula repair abdominoplasty cataract surgery
--- OUTSIDE RECORDS SUMMARY | 2024-10-31 14:27 | XMS_ITS | Clinical Summary ---
Author Organization [facility] Address [address] [place] [address] Care Team Providers Care Elementary Reading Tutor Name Role Phone Azam Parekh Primary Care Provider [phone] Papo Dominguez APRN Unavailable Unavailabl e Vishal Schuler Unavailable Unavailable Allergies Active Allergy Reactions Criticality Noted Date Comments Iodinated Contrast Media Hives Medium 05/09/2019 Medications levothyroxine (SYNTHROID, LEVOTHROID) 112 MCG tablet Take 112 mcg by mouth daily on an empty stomach. Active atorvastatin (LIPITOR) 40 MG tablet 9 Active DULoxetine (CYMBALTA) 60 MG capsule TAKE 2 CAPSULES PO QD 3 9 Active nitrofurantoin (MACRODANTIN) 50 MG capsule TK 1 C PO QD HS 0 9 Active ONETOUCH ULTRA BLUE TEST strip USE TO TEST BLOOD GLUCOSE UP TO 2 TIMES A DAY 1 9 Active amphetamine-dextr oamphetamine (ADDERALL) 20 MG tablet Take 20 mg by mouth 2 (two) times a day. Active Cannabidiol Non-THC (CBD) Misc [place]/Smoke/Vapor /Oil Inhale. Active SUPER B COMPLEX/C PO Take by mouth. Activ e Coenzyme Q10 (COQ10 PO) Take by mouth. Acti ve Vitamin D3 (CHOLECALICEROL) 2000 units tablet Take 2,000 Units by mouth every other day. Active aspirin 81 MG chewable tablet Chew 81 mg daily. Active Collagen 500 MG Cap Take by mouth. Activ e lisinopril (PRINIVIL,ZeSTRIL ) 5 MG tablet Take 5 mg by mouth daily. Active metFORMIN (GLUCOPHAGE) 1000 MG tabletIndications :Controlled type 2 diabetes mellitus without complication, without long-term current use of insulin ([facility]) TAKE 1 TABLET TWICE A DAY WITH MEALS 180 tablet 3 0 Active Continuous Blood Gluc School Age Program Teacher (FreeStyle [place] 2 [place] Systm) DeviceIndications :Type 2 diabetes mellitus with hyperglycemia, without long-term current use of insulin ([facility]) 1 Device by Does not apply route See Admin Instructions. Use to test blood glucose 1 each 0 Active Continuous Blood Gluc Sensor (FreeStyle Irving 2 Sensor Systm) MiscIndications:T ype 2 diabetes mellitus with hyperglycemia, without long-term current use of insulin ([facility]) 6 Devices by Does not apply route See Admin Instructions. Change sensor to arm every 14 days 6 each 3 0 Active Continuous Blood Gluc Sensor (FreeStyle Irving 2 Sensor) MiscIndications:T ype 2 diabetes mellitus with hyperglycemia, without long-term current use of insulin ([facility]) 1 Device by Does not apply route See Admin Instructions. Change sensor to arm every 14 days 6 each 1 1 Active Trulicity 1.5 MG/0.5ML subcutaneous injectionIndicati ons:Type 2 diabetes mellitus with hyperglycemia, without long-term current use of insulin ([facility]) INJECT 1.5 MG UNDER THE SKIN ONCE A WEEK 13 pen 1 Active HumaLOG KwikPen 200 UNIT/ML prefilled pen injectionIndicati ons:Type 2 diabetes mellitus with hyperglycemia, without long-term current use of insulin ([facility]) Inject 10 units SQ before breakfast, 6 units SQ before lunch, and 4 units SQ before dinner. 5 pen 3 1 Active Lantus SoloStar 100 UNIT/ML pen injectionIndicati ons:Type 2 diabetes mellitus with hyperglycemia, without long-term current use of insulin ([facility]) Inject 16 Units under the skin nightly. 15 mL 3 1 Active Insulin Pen Needle 32G X 4 MM MiscIndications:T ype 2 diabetes mellitus with hyperglycemia, without long-term current use of insulin ([facility]) Use to administer insulin 4 times a day 400 pen needle 3 1 Active Active Problems Problem Noted Date Diagnosed [...] of 2) 2005 COVID-19 Vaccine (1 - 2023- season) 2024 RSV Vaccine 60 years and [...] 8:35 AM EDT 03/09/2020 8:36 AM EDT [facility] - 03/10/2020 6:36 PM EDT FASTING:YES FASTING: YES Resulting Agency Comment Performing Organization Information: ?Site ID: [id number] ?Name: [facility] ?Address: [address] [place] [address], [place] [address] ?Director: Lai Contreras MD us Papo Dominguez APRN LAB BLOOD ORDERABLES Final Result [facility] [address] [place] [address], [place] [address] * (ABNORMAL) Lipid Panel Reflex Direct LDL (07/31/2019 7:47 AM EST) Cholesterol, Total 187 <200 mg/dL [facility] Cholesterol, HDL 56 >50 mg/dL [facility] Triglycerides 147 <150 mg/dL [facility] LDL Cholesterol 105(H) mg/dL (calc) [facility] Comment: Reference range: <100 Desirable range <100 mg/dL for primary prevention; ?? <70 mg/dL for patients with CHD or diabetic patients with > or = 2 CHD risk factors. LDL-C is now calculated using the Louis-Rashaad calculation, which is a validated novel method providing better accuracy than the Friedewald equation in the estimation of LDL-C. Louis SS et al. MARCI. 2013;310(19): 9844-7201 (http://education.WordSentry/faq/HPO449) Cholesterol/HDL Ratio 3.3 <5.0 (calc) [facility] Non HDL Chol. (LDL+VLDL) 131(H) <130 mg/dL (calc) [facility] Comment: For patients with diabetes [...] Performing Organization Information: ?Site ID: [id number] ?Name: [employer] ?Address: [address] [place] [address], [place] [address] ?Director: Lai Contreras MD Papo Dominguez APRN LAB BLOOD ORDERABLES Final Result [employer] [facility] [address], [place] [address] from Last 3 Months or Most Recently Relevant to Health Maintenance Care Teams Elementary Reading Tutor Relationship Specialty Start Date End Date Azam Parekh [address] [place] [address] PCP - General 04/24/19 Papo Dominguez APRN [address] [facility] [address] [place] [address] Nurse Practitioner Endocrinology 05/09/19 Vishal Schuler [address] [facility] [address] [place] [address] Physician Ophthalmology 05/09/19
--- OUTSIDE RECORDS SUMMARY | 2024-10-31 14:27 | XMS_ITS | Encounter Summary ---
Author Organization [facility] Address [address] [place] [address] Care Team Providers Care Orthopedic Tech Name Role Phone Azam Parekh Primary Care Provider [phone] Papo Dominguez APRN Unavailable Unavailabl e Vishal Schuler Unavailable Unavailable Encounter Details Date Type Department Care Team (Late st Contact Info) Description 08/27/2021 Scanned Document [address] [place] [phone] Provider, Generic Social History Tobacco Use Types [...] on filedocumented in this encounter Care Teams Orthopedic Tech Relationship Specialty Start Date End Date Azam Parekh [address] [facility] [address] [place] [address] PCP - General 04/24/19 Papo Dominguez APRN [address] [facility] [address] [place] [address] Nurse Practitioner Endocrinology 05/09/19 Vishal Schuler [address] [address] Physician Ophthalmology 05/09/19 documented as of this encounter
--- OUTSIDE RECORDS SUMMARY | 2024-10-31 14:27 | XMS_ITS | Encounter Summary ---
Author Organization [facility] Address [address] [place] [address] Care Team Providers Care Manager Systems Name Role Phone Azam Parekh Primary Care Provider [phone] Papo Dominguez APRN Unavailable Unavailabl e Vishal Schuler Unavailable Unavailable Encounter Details Date Type Department Care Team (Late st Contact Info) Description 08/10/2020 Scanned Document [address] [place] [phone] Provider, Generic Social History Tobacco Use Types [...] on filedocumented in this encounter Care Teams Manager Systems Relationship Specialty Start Date End Date Azam Parekh [address] [facility] [address] [place] [address] PCP - General 04/24/19 Papo Dominguez APRN [address] [facility] [address] [place] [address] Nurse Practitioner Endocrinology 05/09/19 Vishal Schuler [address] [address] Physician Ophthalmology 05/09/19 documented as of this encounter
== END 2024-10-31 12:40 | disposition home or self-care (01) ==
LOC: HO.HUSH 11:35
PROVIDERS: PCP Internal Medicine; Visit Provider Urology
DX: N39.0 Urinary tract infection, site not specified (principal); N32.81 Overactive bladder; N31.9 Neuromuscular dysfunction of bladder, unspecified; Z13.9 Encounter for screening, unspecified
CPT/HCPCS: 99213; G2211

== ENCOUNTER 2024-10-31 11:35 | Outpatient (REF) | payer MEDICARE, SELFPAY ==
--- OUTSIDE RECORDS SUMMARY | 2024-10-31 14:59 | XMS_ITS | Encounter Summary ---
Author Organization [facility] Address [address] [place] [address] Care Team Providers Care Chronometer Assembler And Adjuster Name Role Phone Azam Parekh Primary Care Provider [phone] Papo Dominguez APRN Unavailable Unavailabl e Vishal Schuler Unavailable Unavailable Encounter Details Date Type Department Care Team (Late st Contact Info) Description 05/09/2019 Scanned Document [facility] Endocrinology [address] [place] [phone] Papo Dominguez APRN Social History Tobacco Use [...] on filedocumented in this encounter Care Teams Chronometer Assembler And Adjuster Relationship Specialty Start Date End Date Azam Parekh [address] [place] [address] PCP - General 04/24/19 Papo Dominguez APRN [address] [facility] [address] [place] [address] Nurse Practitioner Endocrinology 05/09/19 Vishal Schuler [address] [facility] [address] [place] [address] Physician Ophthalmology 05/09/19 documented as of this encounter
--- OUTSIDE RECORDS SUMMARY | 2024-10-31 14:59 | XMS_ITS | Encounter Summary ---
Author Organization [facility] Address [address] [place] [address] Care Team Providers Care Federal Mediation Commissioner Name Role Phone Azam Parekh Primary Care Provider [phone] Papo Dominguez APRN Unavailable Unavailabl e Vishal Schuler Unavailable Unavailable Encounter Details Date Type Department Care Team (Late st Contact Info) Description 06/06/2019 Scanned Document [facility] Endocrinology [address] [place] [phone] Papo Dominguez APRN Social History Tobacco Use [...] on filedocumented in this encounter Care Teams Federal Mediation Commissioner Relationship Specialty Start Date End Date Azam Parekh [address] [place] [address] PCP - General 04/24/19 Papo Dominguez APRN [address] [facility] [address] [place] [address] Nurse Practitioner Endocrinology 05/09/19 Vishal Schuler [address] [facility] [address] [place] [address] Physician Ophthalmology 05/09/19 documented as of this encounter
--- OUTSIDE RECORDS SUMMARY | 2024-10-31 14:59 | XMS_ITS | Encounter Summary ---
Author Organization [facility] Address [address] [place] [address] Care Team Providers Care Director Adult Name Role Phone Azam Parekh Primary Care Provider [phone] Papo Dominguez APRN Unavailable Unavailabl e Vishal Schuler Unavailable Unavailable Encounter Details Date Type Department Care Team (Late st Contact Info) Description 06/06/2019 Scanned Document [facility] Endocrinology [address] [place] [address] [phone] Papo Dominguez APRN Social History Tobacco Use [...] on filedocumented in this encounter Care Teams Director Adult Relationship Specialty Start Date End Date Azam Parekh [address] [place] [address] PCP - General 04/24/19 Papo Dominguez APRN [address] [facility] [address] [place] [address] Nurse Practitioner Endocrinology 05/09/19 Vishal Schuler [address] [facility] [address] [place] [address] Physician Ophthalmology 05/09/19 documented as of this encounter
--- OUTSIDE RECORDS SUMMARY | 2024-10-31 14:59 | XMS_ITS | Encounter Summary ---
Author Organization [facility] Address [address] [place] [address] Care Team Providers Care Second Worker Name Role Phone Azam Parekh Primary Care Provider [phone] Papo Dominguez APRN Unavailable Unavailabl e Vishal Schuler Unavailable Unavailable Encounter Details Date Type Department Care Team (Late st Contact Info) Description 03/12/2020 Scanned Document [facility] Endocrinology [address] [place] [address] [phone] Papo Dominguez APRN Social History Tobacco Use [...] on filedocumented in this encounter Care Teams Second Worker Relationship Specialty Start Date End Date Azam Parekh 2377 [facility] 2 [place] [address] PCP - General 04/24/19 Papo Dominguez APRN 2377 [facility] 2 [place] [address] Nurse Practitioner Endocrinology 05/09/19 Vishal Schuler 8900 [facility] 205 [place] [address] Physician Ophthalmology 05/09/19 documented as of this encounter
--- OUTSIDE RECORDS SUMMARY | 2024-10-31 14:59 | XMS_ITS | Encounter Summary ---
Author Organization [facility] Address [address] [place] [address] Care Team Providers Care Children[employer]S Zoo Caretaker Name Role Phone Azam Parekh Primary Care Provider [phone] Papo Dominguez APRN Unavailable Unavailabl e Vishal Schuler Unavailable Unavailable Encounter Details Date Type Department Care Team (Late st Contact Info) Description 05/09/2019 Scanned Document [facility] Endocrinology [address] [place] [address] [phone] Papo Dominguez APRN Social History Tobacco Use [...] on filedocumented in this encounter Care Teams [employer] Caretaker Relationship Specialty Start Date End Date Azam Parekh [address] [place] [address] [place] [address] PCP - General 04/24/19 Papo Dominguez APRN 2377 [facility] [place] [address] [place] [address] Nurse Practitioner Endocrinology 05/09/19 Vishal Schuler 8900 [facility] [place] 205 [place] [address] Physician Ophthalmology 05/09/19 documented as of this encounter
--- OUTSIDE RECORDS SUMMARY | 2024-10-31 14:59 | XMS_ITS | Encounter Summary ---
Author Organization [facility] Address [address] [place] [address] Care Team Providers Care Locker Room Supervisor Name Role Phone Azam Parekh Primary Care Provider [phone] Papo Dominguez APRN Unavailable Unavailabl e Vishal Schuler Unavailable Unavailable Reason for Visit * Reason Comments Medication Refill Encounter Details Date Type Department Care Team (Late st Contact Info) Description 04/06/2020 Refill [facility] Endocrinology [address] [phone] Papo Dominguez APRN Controlled type 2 diabetes [...] (HCC) documented in this encounter Care Teams Locker Room Supervisor Relationship Specialty Start Date End Date Azam Parekh [address] [place] [address] [address] [place] [address] PCP - General 04/24/19 Papo Dominguez APRN 2377 [facility] [place] [address] [place] [address] Nurse Practitioner Endocrinology 05/09/19 Vishal Schuler 8900 [facility] 205 [place] [address] Physician Ophthalmology 05/09/19 documented as of this encounter
--- OUTSIDE RECORDS SUMMARY | 2024-10-31 14:59 | XMS_ITS | Encounter Summary ---
Author Organization [facility] Address [address] [place] [address] Care Team Providers Care Appointment Scheduler Name Role Phone Azam Parekh Primary Care Provider [phone] Papo Dominguez APRN Unavailable Unavailabl e Vishal Schuler Unavailable Unavailable Encounter Details Date Type Department Care Team (Late st Contact Info) Description 06/06/2019 Scanned Document [facility] Endocrinology [address] [place] [address] [phone] Papo Dominguez APRN Social History Tobacco Use [...] on filedocumented in this encounter Care Teams Appointment Scheduler Relationship Specialty Start Date End Date Azam Parekh [address] [place] [address] [place] [address] PCP - General 04/24/19 Papo Dominguez APRN 2377 [facility] [place] 2 [place] [address] Nurse Practitioner Endocrinology 05/09/19 Vishal Schuler 8900 [facility] [place] [address] [place] [address] Physician Ophthalmology 05/09/19 documented as of this encounter
--- OUTSIDE RECORDS SUMMARY | 2024-10-31 14:59 | XMS_ITS | Encounter Summary ---
Author Organization [facility] Address [address] [place] [address] Care Team Providers Care High School Music Teacher Name Role Phone Azam Parekh Primary Care Provider [phone] Papo Dominguez APRN Unavailable Unavailabl e Vishal Schuler Unavailable Unavailable Encounter Details Date Type Department Care Team (Late st Contact Info) Description 08/08/2019 Scanned Document [facility] Endocrinology [address] [place] [address] [phone] Papo Dominguez APRN Social History Tobacco Use [...] on filedocumented in this encounter Care Teams High School Music Teacher Relationship Specialty Start Date End Date Azam Parekh [address] [place] [address] [place] [address] PCP - General 04/24/19 Papo Dominguez APRN 2377 [facility] [place] [address] [place] [address] Nurse Practitioner Endocrinology 05/09/19 Vishal Schuler [address] [facility] [place] 205 [place] [address] Physician Ophthalmology 05/09/19 documented as of this encounter
--- OUTSIDE RECORDS SUMMARY | 2024-10-31 14:59 | XMS_ITS | Encounter Summary ---
Author Organization [facility] Address [address] [place] [address] Care Team Providers Care Pipe Coverer Name Role Phone Azam Parekh Primary Care Provider [phone] Papo Dominguez APRN Unavailable Unavailabl e Vishal Schuler Unavailable Unavailable Reason for Visit * Reason Comments Medication Refill Encounter Details Date Type Department Care Team (Late st Contact Info) Description 04/09/2020 Refill [facility] Endocrinology [address] [phone] Papo Dominguez, EUGENE Type 2 diabetes mellitus [...] (HCC) documented in this encounter Care Teams Pipe Coverer Relationship Specialty Start Date End Date Azam Parekh 2377 [facility] [address] [place] [address] PCP - General 04/24/19 Papo Dominguez APRN 2377 [facility] [place] [address] [place] [address] Nurse Practitioner Endocrinology 05/09/19 Vishal Schuler 8900 [facility] 205 [place] [address] Physician Ophthalmology 05/09/19 documented as of this encounter
--- OUTSIDE RECORDS SUMMARY | 2024-10-31 15:00 | XMS_ITS | Encounter Summary ---
Author Organization [facility] Address [address] [place] [address] Care Team Providers Care Yardage Caller Name Role Phone Azam Parekh Primary Care Provider [phone] Papo Dominguez APRN Unavailable Unavailabl e Vishal Schuler Unavailable Unavailable Reason for Visit * Reason Comments Medication Refill Encounter Details Date Type Department Care Team (Late st Contact Info) Description 11/17/2019 Refill [facility] Endocrinology [address] [phone] Papo Dominguez APRN Type 2 diabetes mellitus [...] (HCC) documented in this encounter Care Teams Yardage Caller Relationship Specialty Start Date End Date Azam Parekh 2377 [facility] [place] [address] PCP - General 04/24/19 Papo Dominguez APRN 2377 [facility] 2 [place] [address] Nurse Practitioner Endocrinology 05/09/19 Vishal Schuler 8900 [facility] 205 [place] [address] Physician Ophthalmology 05/09/19 documented as of this encounter
--- OUTSIDE RECORDS SUMMARY | 2024-10-31 15:00 | XMS_ITS | Encounter Summary ---
Author Organization [facility] Address [address] [place] [address] Care Team Providers Care Clinical Courier Name Role Phone Azam Parekh Primary Care Provider [phone] Papo Dominguez APRN Unavailable Unavailabl e Vishal Schuler Unavailable Unavailable Encounter Details Date Type Department Care Team (Late st Contact Info) Description 11/13/2019 Scanned Document [facility] Endocrinology [address] [phone] Papo Dominguez APRN Social History Tobacco Use [...] on filedocumented in this encounter Care Teams Clinical Courier Relationship Specialty Start Date End Date Azam Parekh 2377 [facility] [place] 2 [place] [address] PCP - General 04/24/19 Papo Dominguez APRN 2377 [facility] [place] [address] [place] [address] Nurse Practitioner Endocrinology 05/09/19 Vishal Schuler 8900 [facility] [place] [address] [place] [address] Physician Ophthalmology 05/09/19 documented as of this encounter
--- OUTSIDE RECORDS SUMMARY | 2024-10-31 15:00 | XMS_ITS | Encounter Summary ---
Author Organization [facility] Address [address] [place] [address] Care Team Providers Care Specialist Physician Name Role Phone Azam Parekh Primary Care Provider [phone] Papo Dominguez APRN Unavailable Unavailabl e Vishal Schuler Unavailable Unavailable Encounter Details Date Type Department Care Team (Late st Contact Info) Description 11/06/2019 Scanned Document [facility] Endocrinology [address] [phone] Papo Dominguez APRN Social History Tobacco Use [...] on filedocumented in this encounter Care Teams Specialist Physician Relationship Specialty Start Date End Date Azam Parekh 2377 [facility] [place] 2 [place] [address] PCP - General 04/24/19 Papo Dominguez APRN 2377 [facility] [place] 2 [place] [address] Nurse Practitioner Endocrinology 05/09/19 Vishal Schuler 8900 [facility] [place] [address] [place] [address] Physician Ophthalmology 05/09/19 documented as of this encounter
--- OUTSIDE RECORDS SUMMARY | 2024-10-31 15:01 | XMS_ITS | Clinical Summary ---
Author Organization [facility] Address [address] [place] [address] Care Team Providers Care Call Person Name Role Phone Azam Parekh Primary Care Provider [phone] Papo Dominguez APRN Unavailable Unavailabl e Vishal [...] a day. Active Cannabidiol Non-THC (CBD) Misc [place]/Smoke/Vapor /Oil Inhale. Active SUPER B COMPLEX/C PO [...] complication, without long-term current use of insulin ([facility]) TAKE 1 TABLET TWICE A DAY WITH MEALS 180 tablet 3 0 Active Continuous Blood Gluc Causticiser (FreeStyle Irving 2 Harlan Systm) DeviceIndications :Type 2 diabetes mellitus with hyperglycemia, without long-term current use of insulin ([facility]) 1 Device by Does not apply route See Admin Instructions. Use to test blood glucose 1 each 0 Active Continuous Blood Gluc Sensor (FreeStyle Irving 2 Sensor Systm) MiscIndications:T ype 2 diabetes mellitus with hyperglycemia, without long-term current use of insulin ([facility]) 6 Devices by Does not apply route See Admin Instructions. Change sensor to arm every 14 days 6 each 3 0 Active Continuous Blood Gluc Sensor (FreeStyle Irving 2 Sensor) MiscIndications:T ype 2 diabetes mellitus with hyperglycemia, without long-term current use of insulin ([facility]) 1 Device by Does not apply route See Admin Instructions. Change sensor to arm every 14 days 6 each 1 1 Active Trulicity 1.5 MG/0.5ML subcutaneous injectionIndicati ons:Type 2 diabetes mellitus with hyperglycemia, without long-term current use of insulin ([facility]) INJECT 1.5 MG UNDER THE SKIN ONCE A WEEK 13 pen 1 Active HumaLOG KwikPen 200 UNIT/ML prefilled pen injectionIndicati ons:Type 2 diabetes mellitus with hyperglycemia, without long-term current use of insulin ([facility]) Inject 10 units SQ before breakfast, 6 units SQ before lunch, and 4 units SQ before dinner. 5 pen 3 1 Active Lantus SoloStar 100 UNIT/ML pen injectionIndicati ons:Type 2 diabetes mellitus with hyperglycemia, without long-term current use of insulin ([facility]) Inject 16 Units under the skin nightly. 15 mL 3 1 Active Insulin Pen Needle 32G X 4 MM MiscIndications:T ype 2 diabetes mellitus with hyperglycemia, without long-term current use of insulin ([facility]) Use to administer insulin 4 [...] 8:35 AM EDT 03/09/2020 8:36 AM EDT [facility] - 03/10/2020 6:36 PM EDT FASTING:YES FASTING: YES Resulting Agency Comment Performing Organization Information: ?Site ID: [id number] ?Name: [employer] ?Address: [address] [place] [address], [facility] [place] [address] ?Director: Lai Contreras MD us Papo Dominguez APRN LAB BLOOD ORDERABLES Final Result [email or web address] [address] [place] [address], [facility] [place] [address] * (ABNORMAL) Lipid Panel Reflex Direct LDL (07/31/2019 7:47 AM EST) Cholesterol, Total 187 <200 mg/dL [facility] Cholesterol, HDL 56 >50 mg/dL [facility] Triglycerides 147 <150 mg/dL [...] LDL-C. Louis SS et al. MARCI. 2013;310(19): 2926-8806 (http://education.[employer]/faq/AIL599) Cholesterol/HDL Ratio 3.3 <5.0 (calc) [facility] [...] Performing Organization Information: ?Site ID: [id number] ?Name: [employer] ?Address: [address] [place] [address], [place] [address] ?Director: Lai Contreras MD Papo Dominguez APRN LAB BLOOD ORDERABLES Final Result [facility] [address], [place] [address] from Last 3 Months or Most Recently Relevant to Health Maintenance Care Teams Call Person Relationship Specialty Start Date End Date Azam Parekh [address] [place] [address] PCP - General 04/24/19 Papo Dominguez APRN 2377 [facility] [place] [address] [place] [address] Nurse Practitioner Endocrinology 05/09/19 Vishal Schuler 1654 [facility] [place] [address] [place] [address] Physician Ophthalmology 05/09/19
--- OUTSIDE RECORDS SUMMARY | 2024-10-31 15:01 | XMS_ITS | Encounter Summary ---
Author Organization [facility] Address [address] [place] [address] Care Team Providers Care Fire Technology Instructor Name Role Phone Azam Parekh Primary Care Provider [phone] Papo Dominguez APRN Unavailable Unavailabl e Vishal Schuler Unavailable Unavailable Encounter Details Date Type Department Care Team (Late st Contact Info) Description 08/10/2020 Scanned Document [address] [place] [address] [phone] Provider, Generic Social History Tobacco Use Types [...] on filedocumented in this encounter Care Teams Fire Technology Instructor Relationship Specialty Start Date End Date Azam Parekh 2377 [facility] [place] [address] [place] [address] PCP - General 04/24/19 Papo Dominguez APRN 2377 [facility] [place] [address] [place] [address] Nurse Practitioner Endocrinology 05/09/19 Vishal Schuler [address] [address] Physician Ophthalmology 05/09/19 documented as of this encounter
--- OUTSIDE RECORDS SUMMARY | 2024-10-31 15:01 | XMS_ITS | Encounter Summary ---
Author Organization [facility] Address [address] [place] [address] Care Team Providers Care Bladder Blower Name Role Phone Azam Parekh Primary Care Provider [phone] Papo Dominguez APRN Unavailable Unavailabl e Vishal Schuler Unavailable Unavailable Encounter Details Date Type Department Care Team (Late st Contact Info) Description 08/27/2021 Scanned Document [address] [place] [address] [phone] Provider, Generic Social History Tobacco Use Types [...] on filedocumented in this encounter Care Teams Bladder Blower Relationship Specialty Start Date End Date Azam Parekh 2377 [facility] [place] [address] [place] [address] PCP - General 04/24/19 Papo Dominguez APRN 2377 [facility] [place] [address] [place] [address] Nurse Practitioner Endocrinology 05/09/19 Vishal Schuler [address] [address] Physician Ophthalmology 05/09/19 documented as of this encounter
== END 2024-10-31 11:36 | disposition home or self-care (01) ==
LOC: HO.LAB 11:35
PROVIDERS: PCP Internal Medicine; Visit Provider Urology
DX: N39.0 Urinary tract infection, site not specified (principal); N32.81 Overactive bladder; N31.9 Neuromuscular dysfunction of bladder, unspecified
CPT/HCPCS: 81003; 87086; 99212

== ENCOUNTER 2024-12-27 10:56 | Outpatient (AMB) | payer MEDICARE, SELFPAY ==
--- NOTE | 2024-12-27 11:40 | AM.OFFVISNUR ---
Intake Visit Reasons: UDS Allergies Iodinated Contrast Media [IVP DYE] Allergy (Intermediate, Verified 10/31/24 11:49) HIVES Office Procedures Urodynamic Studies Consent Discussed risk and benefit or proposed procedure with the patient. Information consent for procedure given to the patient. Discussed technical aspects, risks, benefits and alternatives in full. Addressed all of the patient's questions and concerns regarding the procedure. The patient demonstrated knowledge and understanding. They wish to proceed with this procedure. Preparation The patient was prepped in the usual manner. A storage battery tester was present and in the room. Genitalia was prepped with betadine solution in a sterile manner. Procedure Patient reports she is currently on Macrobid for a UTI. States she started the course 4 days ago. Reviewed with Dr. Demario parker to proceed with test. Complex Uroflow Complex uroflow performed by: Hakeem Doe Maximum urinary flow rate (mL/second): 2.3 Voiding time (seconds): 7.9 seconds Voided volume (mL): 8ml Residual urine (mL): 150ml Cystometrogram ? Vaginal/rectal catheter type: Vaginal First sensation at (mL): 10 mL First desire at (mL): 107 mL Strong desire to void occurred at (mL): 350 mL Strong desire detrusor pressure (cm H2O): 1.4 Maximum Capacity (mL): 469 mL Voiding Summary Voided with max detrusor pressure of (cm H2O): 23 Maximum flow rate (mL/second): 9.0mL/s Voided volume (mL): ? 308 ml Calculated PVR: 160 mL Patient reports she has to lean forward to empty her bladder. Patient attempted to void remaining fluid out once catheters were removed, but unable to. Stress Testing Stress Test at 200 mL: Absent leak with Valsalva, Absent leak with cough Stress Test at 400 mL: Absent leak with Valsalva, Absent leak with cough DO Dry: Absent DO Wet: Absent Prep: The patient was prepped in the usual manner. A storage battery tester was present and in the room. Genitalia was prepped with betadine solution in a sterile manner. 45105-Gjrfzusygdzqrx w/ MANAGER FLOOR 56288-Dmgvyqm-Bxsfbwivmzci 16126-Hpnl/Urinary Muscle Study 47932-Uelvn-Ucjgezelv Pressure Test Procedure code (CPT) selection complete Office Meds nitrofurantoin monohydrate/macrocrystals 100 mg capsule Performing Provider: Hakeem Doe MD [facility] Documented (not given) by: Lauren Watters RN on 12/27/24 11:40 Reason Not Given: Patient Contraindications Assessment & Plan Assessment & Plan Orders: Orders AMB Urodynamics Studies Today N31.9 - Neuromuscular dysfunction of bladder, unspecified Medications: New nitrofurantoin monohyd/m-cryst 100 mg 100 mg PO ONCE 1 cap 0RF N31.9 - Neuromuscular dysfunction of bladder, unspecified Coding CPT Codes Urodynamic Studies - CPT: 89587-Kqgnqawjyjrbhv w/ MANAGER FLOOR ([id number]) Urodynamic Studies - CPT: 90124-Fokyqba-Kojnnfzhejky ([id number]) Urodynamic Studies - CPT: 15595-Ubet/Urinary Muscle Study ([id number]) Urodynamic Studies - CPT: 58068-Molox-Fbjzmmudq Pressure Test ([id number])
--- OUTSIDE RECORDS SUMMARY | 2024-12-27 12:00 | XMS_ITS ---
Author Organization [facility] Address [address] [place] [address] Care Team Providers Care Loom Changeover Operator Name Role Phone Izabella MCDONOUGH, Azam Primary Care Provider UnavailJaquan Gómez Jr Unavailable Allergies Allergen (clinical drug ingredient) [...] UNITS DAILY Subcutaneous for 72 Active Creon [id number] UNIT 2 capsules with m eals and [...] Problem Status W/U Status Risk Notes Problem 344232558 Gastroesophageal reflux disease with esophagitis, unspecified whether hemorrhage (K21.00) Active confirmed Problem 12167467 Incontinence of feces, unspecified fecal incontinence type (R15.9) Active confirmed Vital Signs Blood pressure systolic 111 mm Hg 09/27/19 25 Blood pressure diastolic 11 mm Hg 025 Height 70 in 09/26/2024 Weight 190 lbs 09/26/2024 BMI 27.26 kg/m2 09/26/2024 Encounters Encounter Location Date Provider Diagnosis [facility] [address] [facility] [address] [place] [phone] 09/26/2024 Jaquan Daniel Jr Gastroesophageal reflux disease [...] Provider Name:Jaquan pierce Jr, 09/29/2025 11:00:00 AM, [address] [place] [address], [address], [place], [address], Progress Notes * MARC ARNOLD EDOB:[birth year] (69 yo F)Acc No.[id number]:09/26/2024 Progress Notes Patient:?JOSEMAHENDRA ARNOLD Yoselin Provider:?Jaquan Daniel MD :[id number]???Age:69 Y???Sex:Female D ate:09/26/2024 Address:[address] [place] [address] Pcp:Azam Parekh MD Subjective: * Chief Complaints: [...] up with colorectal surgery or the company district representative on this and is not sure [...] BY MOUTH DAILY Oral , Not-Taking/PRN Creon [id number] UNIT Capsule Delayed Release Particles 2 capsules [...] Sign off status: Completed true * Provider:?Jaquan Dainel MD Date:?0 09/26/2024 Generated for Vishal brower/Lakshmi/eTransmitting on:?12/27/2024 12:00 PM EDT History and Physical Notes * [...] up with colorectal surgery or the company district representative on this and is not sure [...]
--- NOTE | 2024-12-31 13:36 | MHC.OFFVIS ---
Intake Visit Reasons: UDS Allergies Iodinated Contrast Media [IVP DYE] Allergy (Intermediate, Verified 10/31/24 11:49) HIVES Medication List - Last Reconciled 12/27/24 by Hakeem Doe MD amitriptyline 25 mg PO BEDTIME 30 days ampicillin 500 mg PO TID 7 days apixaban (Eliquis) 5 mg PO BID atorvastatin 40 mg PO DAILY benazepril 10 mg PO DAILY bethanechol chloride 50 mg PO BID bupropion HCl XL 300 mg PO DAILY diltiazem HCl 30 mg PO DAILY estradiol 0.01%(0.1mg/gram) pea-sized to urethra 3 times a week [id number] [facility] [id number] Member [id number] 30 days flash glucose sensor As directed fluconazole 150 mg PO Q3D 2 doses insulin glargine U-300 conc (Toujeo Max U-300 SoloStar) 18 units subcut DAILY levothyroxine 112 mcg PO DAILY messlb-eaxibiel-jttveqp 24,000-76,000 -120,000 unit (Creon) 1 cap PO DAILY metformin 1,000 mg PO BID sulfamethoxazole-trimethoprim 800-160 mg (Bactrim DS) 1 tab PO BID 7 days PFSH Medical History Hx of sleep apnea Elevated cholesterol PAF (paroxysmal atrial fibrillation) Hypothyroidism Dislocated patella PONV (postoperative nausea and vomiting) Osteoarthritis Psoriatic arthritis Hx of skin cancer, basal cell Diabetes ADD (attention deficit disorder) PVC (premature ventricular contraction) Surgical History Hx of colonoscopy History of bilateral knee arthroplasty Hx of LASIK H/O cystoscopy H/O knee surgery History of colon resection H/O abdominoplasty History of bladder surgery H/O: section Social History Patient Tobacco Use Status: Former Tobacco user Office Procedures Urodynamic Studies Consent Discussed risk and benefit or proposed procedure with the patient. Information consent for procedure given to the patient. Discussed technical aspects, risks, benefits and alternatives in full. Addressed all of the patient's questions and concerns regarding the procedure. The patient demonstrated knowledge and understanding. They wish to proceed with this procedure. Preparation The patient was prepped in the usual manner. A chief informatics officer was present and in the room. Genitalia was prepped with betadine solution in a sterile manner. Procedure Patient reports she is currently on Macrobid for a UTI. States she started the course 4 days ago. Reviewed with Dr. Demario parker to proceed with test. Complex Uroflow Complex uroflow performed by: Hakeem Doe Maximum urinary flow rate (mL/second): 2.3 Voiding time (seconds): 7.9 seconds Voided volume (mL): 8ml Residual urine (mL): 150ml Cystometrogram ? Vaginal/rectal catheter type: Vaginal First sensation at (mL): 10 mL First desire at (mL): 107 mL Strong desire to void occurred at (mL): 350 mL Strong desire detrusor pressure (cm H2O): 1.4 Maximum Capacity (mL): 469 mL Voiding Summary Voided with max detrusor pressure of (cm H2O): 23 Maximum flow rate (mL/second): 9.0mL/s Voided volume (mL): ? 308 ml Calculated PVR: 160 mL Patient reports she has to lean forward to empty her bladder. Patient attempted to void remaining fluid out once catheters were removed, but unable to. Stress Testing Stress Test at 200 mL: Absent leak with Valsalva, Absent leak with cough Stress Test at 400 mL: Absent leak with Valsalva, Absent leak with cough DO Dry: Absent DO Wet: Absent Prep: The patient was prepped in the usual manner. A chief informatics officer was present and in the room. Genitalia was prepped with betadine solution in a sterile manner. 29227-Hicilecdbotmbf w/ LIVESTOCK SPECULATOR 23125-Dakqmnk-Cbzuqpavapnb 25994-Jpnl/Urinary Muscle Study 73974-Emvry-Qpjzqrinu Pressure Test Procedure code (CPT) selection complete Office Meds nitrofurantoin monohydrate/macrocrystals 100 mg capsule Performing Provider: Hakeem Doe MD Performing Location: [facility] Documented (not given) by: Lauren Watters RN on 12/27/24 11:40 Reason Not Given: Patient Contraindications Assessment & Plan Assessment & Plan Orders: Orders AMB Urodynamics Studies 12/27/24 N31.9 - Neuromuscular dysfunction of bladder, unspecified Medications: New bethanechol chloride 50 mg PO BID 60 tabs 2RF Coding CPT Codes Urodynamic Studies - CPT: 26267-Agtanevzigurjz w/ LIVESTOCK SPECULATOR ([id number]) Urodynamic Studies - CPT: 06594-Pjychyy-Dyjpoiixsswl ([id number]) Urodynamic Studies - CPT: 92291-Yyak/Urinary Muscle Study ([id number]) Urodynamic Studies - CPT: 08047-Ojtbl-Qccoalnps Pressure Test ([id number])
== END 2024-12-27 12:16 | disposition home or self-care (01) ==
LOC: HO.HUSH 10:56
PROVIDERS: PCP Internal Medicine; Visit Provider Urology
DX: N31.9 Neuromuscular dysfunction of bladder, unspecified (principal)
CPT/HCPCS: 51728; 51741; 51784; 51797

== ENCOUNTER → 2024-12-27 10:56 | Outpatient (BNVA) | payer MEDICARE, SELFPAY | PROVIDERS: PCP Internal Medicine; Visit Provider Urology | DX: N32.81 Overactive bladder (principal); N31.9 Neuromuscular dysfunction of bladder, unspecified; N39.0 Urinary tract infection, site not specified | CPT/HCPCS: 51728; 51741; 51784; 51797; 99212 ==

== ENCOUNTER 2025-02-20 10:38 | Outpatient (REF) | payer MEDICARE, SELFPAY ==
--- NOTE | ~2025-02-20 | XR_ITS ---
EXAMINATION: XR SACRUM AND COCCYX CLINICAL INFORMATION: N31.9 - Neuromuscular dysfunction of bladder, unspecified COMPARISON: None available. TECHNIQUE: AP and lateral views FINDINGS: There is a metallic electrode entering at the right S1 level just medial to the neural foramen and ending at right S4. The metallic reservoir overlaps the superior aspect of the right coxofemoral joint. Sclerosis and the sacroiliac joints, right greater than left. Bilateral facet joint hypertrophy at L5-S1 pronounced on the right side. Degenerative changes in both coxofemoral joints. XR/XR sacrum coccyx min 2V IMPRESSION: Sacral nerve stimulator entering medial from the right S1 and in at right S4. Electronically signed by: Lance Harrell MD 02/20/2025 12:11 PM EDT
== END 2025-02-20 10:39 | disposition home or self-care (01) ==
LOC: HO.XRAY 10:38
PROVIDERS: PCP Internal Medicine; Visit Provider Urology
DX: N31.9 Neuromuscular dysfunction of bladder, unspecified (principal); N39.8 Other specified disorders of urinary system
CPT/HCPCS: 72220; 81003; 99212

== ENCOUNTER 2025-02-20 10:38 | Outpatient (AMB) | payer MEDICARE, SELFPAY ==
--- OUTSIDE RECORDS SUMMARY | 2024-02-16 04:30 | XMS_ITS ---
Author Organization [facility] Address [address] [place] [address] Care Team Providers Care Copper Etcher Name Role Phone Izabella MCDONOUGH, Azam Primary Care Provider Unavailab Irene Alvarez Unavailable [phone] Encounters Encounter Location Date Provider Diagnosis [facility] [address] [place] [address] 02/16/2024 Irene Juarez Plan Of Treatment Next Appt Details Provider Name:Irene A Larry , 04/02/2025 08:00:00 AM, [address] [place], [address], Progress Notes * Erika TRANOB:1955 (69 yo F)Acc No.[id number]:02/16/2024 Progress Note Patient: Amanda BAILEY Provider: Dandre Juarez DPM :1955 A ge:68 Y S ex:Female Date:02/16/2024 Address:[address] [place], [place] [id number] Pcp:Azam Parekh MD Subjective: * Chief Complaints: * * Medical History: Objective: * Vitals: Assessment: Plan: * Treatment: * Images: * The named appointment provid er may or may not be the originator of this progress note, and it is not deemed complete until electronically signed by the appointment provider. Sign off status: Pending * Provider: Dandre Juarez DPM Date: 02/16/2024 Generated for Vishal brower/Lakshmi/Rajendrasmitting on: 02/20/2025 11:17 AM EDT
--- OUTSIDE RECORDS SUMMARY | 2024-03-19 05:10 | XMS_ITS ---
Author Organization [facility] Address [address] [place] [address] [place] [phone] Care Team Providers Care Fur Trimming Machine Operator Name Role Phone Azam Parekh MD Primary Care Provider UnavailJaquan Gómez Jr [phone] REASON FOR VISIT rectal bleeding,abnormal ugi series Encounters Encounter Location Date Provider Diagnosis [facility] [address] [place] [phone] 03/19/2024 Jaquan Daniel Jr Rectal bleeding K62.5 ; Diarrhea R19.7 and Abnormal UGI series R93.3 Assessments Encounter Date Diagnosis (ICD Code) Assessment Notes Treatment Notes Treatment Clinical Notes Section Notes 03/19/2024 Rectal bleeding (ICD-10 - K62.5) 03/19/2024 Diarrhea (ICD-10 - R19.7) 03/19/2024 Abnormal UGI series (ICD-10 - R93.3) Plan Of Treatment Next Appt Details Provider Name:Jaquan pierce Jr, 09/29/2025 11:00:00 AM, [address] [place] [address], [address], [place], [address], Progress Notes * ARNOLD TRAN EDOB:[birth year] (69 yo F)Acc No.[id number]:03/19/2024 EGD and COL/MAC Patient: Anam ALDANA ARNOLD Wyatt Provider: Farheen Daniel MD :1955 A ge:68 Y S ex:Female Date:03/19/2024 Address:[address] [place], [place] [phone] Pcp:Azam Parekh MD Subjective: * Chief Complaints: * 1 . Rectal bleeding,abnormal ugi series. * Medical History: Objective: * Vitals: Assessment: * Assessment: 1. R ectal bleeding - K62.5 (Primary) 2 . D iarrhea - R19.7 ?3. A bnormal UGI series - R93.3 Plan: * Treatment: * Procedure Codes: 4 5380 COLONOSCOPY AND BIOPSY, [address] UPPER GI ENDOSCOPY, BIOPSY * * The named appointment provid er may or may not be the originator of this progress note, and it is not deemed complete until electronically signed by the appointment provider. Sign off status: Pending * Provider: Farheen Daniel MD Date: 0 03/19/2024 Generated for Vishal brower/Lakshmi/Reyitting on: 0 02/20/2025 11:17 AM EDT
--- OUTSIDE RECORDS SUMMARY | 2025-02-14 23:59 | XMS_ITS | Continuity of Care Document ---
Author Organization [facility] [place] Address [address] [place] [address]- Care Team Providers Care Environmental Remediation Engineer Name Role Phone Azam Parekh MD Primary Care Physician Encounter 02/07/25 - 02/14/25 [facility] [place] [address], [address] [place] [address]- Attending Physician: Azam Parekh MD Admitting Physician: Azam Parekh MD Referring Physician: Azam Parekh MD Encounter Type: OutPatient One Time Allergies, Adverse Reactions, Alerts Substance Criticality Severity Reaction Reaction Severity Status iodinated radiocontrast dyes 1 Unable to assess criticality Persistent Severe rash Active Dogs 2 sneezing Active Other Environmental Allergy 3 sneezing Trees: unknown Active Dust 4 sneezing Active Horses 5 sneezing Active 1IVP dye 2This is per allergy testing 3No known response - tested positive with allergy testing 4Tested with allergy testing- no known response 5Per allergy testing-does not react to horses Immunizations Given and Recorded Vaccine Date Status Refusal Reason influenza virus vaccine, inactivated 06/07/24 Serg rded influenza virus vaccine, inactivated 05/06/23 Serg rded [...] virus vaccine, inactivated 2 05/16/07 Gi katarina RSV vaccine, preF A-preF B, recombinant 05/24/24 R ecorded pneumococcal 20-valent conjugate vaccine 11/22/22 Given [id number] bivalent booster vax 11/22/22 Recorded [id number] bivalent booster vax 08/11/22 Recorded zoster vaccine, inactivated 01/18/22 Recorded zoster vaccine, inactivated 07/14/21 Recorded SARS-CoV-2 (COVID-19) mRNA-1273 vaccine 05/11/21 R ecorded SARS-CoV-2 (COVID-19) mRNA-1273 vaccine 10/16/20 R ecorded SARS-CoV-2 (COVID-19) mRNA-1273 vaccine 09/17/20 R ecorded tetanus/diphtheria/pertussis, acel(Tdap) 05/19/17 Given influ virus vac, H1N1, inactive(oldterm) 3 05/12/09 Given Pneumococcal Vacc (oldterm) 04/20/07 Given tetanus-diphtheria toxoids (Td) 4 03/04/07 Given 1Result Comment: [05/19/2017] [facility] [id number] 2Admin Note: SANOFI PASTEUR NO CONTRAINDICATIONS 3Admin [...] Daily, # 90 tablet, 1 Refills, Maintenance, 12/15/24 9:30:00 PM EDT, [facility], 173, cm, 11/22/24 12:01:00 EDT, Height, 81.6, kg, 10/19/23 9:46:00 EDT, Dry Weight Start Date: 12/15/24 Status: Ordered Quantity: 90.0 Unit: tablet Repeat number: 2 benazepril 5 mg oral tablet 2 tablet = 10 mg, By Mouth, Daily, # 90 tablet, 3 Refills, Maintenance, 01/07/25 9:50:00 AM EDT, Tablet, [facility], Partial fill upon patient request if the prescription is for a schedule II opioid drug., 174, cm, 01/07/25 9:36:00 EDT, Height, 81.6, kg, 10/19/23 9:46:00 EDT, Dry Weight Start Date: 01/07/25 Status: Ordered Quantity: 90.0 Unit: tablet Repeat number: 4 betamethasone topical dipropionate 0.05% cream 90 Gm, 0 Refill(s), APPLY TO TRUNK, ARMS, LEGS TWO TIMES A DAY NEEDED FOR FLARES DECREASE USE ASSMPTOMS IMPROVE, 0 Refills, 01/07/25 9:34:00 AM EDT, Partial fill upon patient request if the prescription is for a schedule II opioid drug. Start Date: 01/07/25 Status: Ordered Repeat number: 1 bethanechol 50 mg oral tablet 60 each, 0 Refill(s), TAKE ONE TABLET BY MOUTH TWICE A DAY, 0 Refills, 01/07/25 9:34:00 AM EDT, Partial fill upon patient request if the prescription is for a schedule II opioid drug. Start Date: 01/07/25 Status: Ordered Repeat number: 1 blood presure cuff blood presure cuff, See [...] Quantity: 90.0 Unit: tablet Repeat number: 4 calcipotriene 0.005% topical cream 60 Gm, 0 Refill(s), APPLY TO TRUNK , ARMS, AND LEGS TWO TIMES A DAY NEEDED ; ALTERNATE TIMES, 0 Refills, 01/07/25 9:34:00 AM EDT, Partial fill upon patient request if the prescription is for a schedule II opioid drug. Start Date: 01/07/25 Status: Ordered Repeat number: 1 Centrum Silver oral tablet, chewable 0 Refills, [...] Quantity: 30.0 Unit: tablet Repeat number: 5 Eliquis 5 mg oral tablet 1 tablet = 5 mg, By Mouth, 2 times a day, # 180 tablet, 3 Refills, Maintenance, 02/05/24 10:43:00 AMEDT, Tablet, [facility], Partial fill upon patient request if the prescription is for a schedule II opioid drug., 173, cm, 02/05/24 10:24:00 EDT, Height, 81.6, kg, 10/19/23 9:46:00EDT, Dry Weight Start Date: 02/05/24 Status: Ordered Quantity: 180.0 Unit: tablet Repeat number: 4 fluconazole 150 mg oral tablet 1 tablet = 150 mg, By Mouth, Once, epeat dose if still having symptoms in 72 hours, # 2 tablet, 0 Refills, Soft Stop, 01/16/25 3:32:00 PM EDT, Tablet, [facility], Partial fill upon patient request if the prescription is for a schedule II opioid drug., 174, cm, 01/16/25 15:22:00 EDT, Height, 81.6, kg, 10/19/23 9:46:00 EDT, Dry Weight Start Date: 01/16/25 Status: Ordered Quantity: 2.0 Unit: tablet Repeat number: 1 fluocinonide 0.05% topical solution 60 mL, 0 Refill(s), APPLY TO SCALP TWO TIMES A DAY NEEDED FOR FLARES WEAN OFF IMPROVES, 0 Refills, 01/07/25 9:35:00 AM EDT, Partial fill upon patient request if the prescription is for a schedule II opioid drug. Start Date: 01/07/25 Status: Ordered Repeat number: 1 Freestyle Irving 14 day reader Freestyle Irving [...] Quantity: 2.0 Unit: each Repeat number: 1 hydrocortisone 2.5% topical cream 60 Gm, 0 Refill(s), APPLY TO AFFECTED AREA S) ON FACE , AND AXILLA TWO TIMES A DAY NEEDED FOR FLARES ; DECREASE SYMPTOMS IMPROVE, 0 Refills, 01/07/25 9:34:00 AM EDT, Partial fill upon patient request if the prescription is for a schedule II opioid drug. Start Date: 01/07/25 Status: Ordered Repeat number: 1 levothyroxine 0.112 mg oral tablet 1 tablet, By Mouth, Daily, # 90 tablet, 1 Refills, Maintenance, 06/10/24 1:10:00 PM EST, [facility], 173, cm, 04/26/24 12:46:00 EDT, Height, 81.6, kg, 10/19/23 9:46:00 EDT, Dry Weight Start Date: 06/10/24 Status: Ordered Quantity: 90.0 Unit: tablet Repeat number: 1 LORazepam 0.5 mg oral [...] Quantity: 2.0 Unit: tablet Repeat number: 1 Lyumjev KwikPen 100 units/mL injectable solution = 1 units, Subcutaneous Infusion, Once, sliding scale, 0 Refills, Maintenance, 07/25/22 1:52:00 PM EST, Partial fill upon patient request if the prescription is for a schedule II opioid drug. Start Date: 07/25/22 Status: Ordered Repeat number: 1 metFORMIN 1000 mg oral tablet 1 tablet, By Mouth, 2 times a day, # 180 tablet, 4 Refills, Maintenance, 01/07/25 11:29:00 AM EDT, [facility], 174, cm, 01/07/25 10:14:00 EDT, Height, 81.6, kg, 10/19/23 9:46:00 EDT, Dry Weight Start Date: 01/07/25 Status: Ordered Quantity: 180.0 Unit: tablet Repeat [...] due to start INH/B6 for LTBI 11/2015 Results Radiology Reports * Exam Date Time Procedure Performing Provider Status 02/07/25 10:25 AM MM Digital Mammo Screening Auth (Verified) Notes: (MM Digital Mammo Screening) Reason For Exam: Z12.31 ROUTINE SCREENING RESULT: MM Digital Mammo Screening PROCEDURE: MM Digital Mammo Screening INDICATION: Screening for breast cancer. No known palpable abnormalities. Status post benign stereotactic left breast biopsy 05/01/2017. COMPARISON: Back to 05/30/2018. TECHNIQUE: Full-field digital bilateral CC and MLO 3D tomosynthesis. Computer-aided detection (CAD) was utilized in the interpretation of this study. DENSITY: There are scattered areas of fibroglandular density. FINDINGS: Single biopsy marker clip on the left. No suspicious masses, microcalcifications, areas of architectural distortion, or skin thickening tosuggest malignancy. IMPRESSION: No mammographic evidence of malignancy. RECOMMENDATION: Annual mammographic screening. BI-RADS: 2 (Benign) Lay letter mailed to patient WSN: [id number] Ordering Physician: Azam Parekh Dictated By: Florian Zavala MD Dictated Date/Time: 02/09/25 3:52 pm Reviewed By: Florian Zavala MD Signed By: Florian Zavala MD Signed Date/Time: 02/09/25 3:52 pm Transcribed By: NITO Cooking Chef Date/Time: 02/09/25 3:48 pm Birads: Social History Social History Type Response Smoking [...] Safety Implantable Status Assigning Authority Unknown Unknown [id number] Unknown 10/27/22 Unknown Unknown Active Unk nown Patient Care team information Care Team Personnel Name: Azam Parekh MD Position: S Physician - Primary Care Member Role: PCP Address: [address] [place] [address]- Telecom: Name: Elva Armstrong RN Position: S RN Member Role: Primary Care Nurse Name: Joe Mehta RN Position: S RN Member Role: Primary Care Nurse Care Team Related Persons Name: MARC CHEIKH Name: FILOMENA TRAN Name: ELLA GONZALEZ Insurance Providers Guarantor name: ARNOLD TRAN [facility] Plan Information #: 1 Payer: [employer] ADV HMO Payer Identifier: NA Member Number: [id number] Group Number: [id number] Subscriber Identifier: [id number] Relationship to Subscriber: self Coverage Type: Medicare HMO Coverage Verification Date: NA Telecom: NA Address: NA
--- OUTSIDE RECORDS SUMMARY | 2025-02-15 23:59 | XMS_ITS | Continuity of Care Document ---
Author Organization [facility] Address [address] [place] [address]- Care Team Providers Care Construction Executive Name Role Phone Azam Parekh MD Primary Care Physician [place] [facility]/16[place]25 - 02/15/25 [facility] [address] [place] [address]- Attending Physician: Stephon Gonzalez Encounter Type: Pre Office Visit Allergies, Adverse Reactions, Alerts Substance Criticality Severity Reaction Reaction Severity Status iodinated radiocontrast dyes 1 Unable to assess criticality Persistent Severe rash Active Other Environmental Allergy 2 sneezing Trees: unknown Active Horses 3 sneezing Active Dogs 4 sneezing Active Dust 5 sneezing Active 1IVP dye 2No known response - tested positive with allergy testing 3Per allergy testing-does not react to horses 4This is per allergy testing 5Tested with allergy testing- no known response Immunizations Given and Recorded Vaccine Date Status [...] ecorded pneumococcal 20-valent conjugate vaccine 11/22/22 Given [id number] bivalent booster vax 11/22/22 Recorded [id number] bivalent booster vax 08/11/22 Recorded zoster vaccine, inactivated 01/18/22 Recorded zoster vaccine, inactivated 07/14/21 Recorded SARS-CoV-2 (COVID-19) mRNA-1273 vaccine 05/11/21 R ecorded SARS-CoV-2 (COVID-19) mRNA-1273 vaccine 10/16/20 R ecorded SARS-CoV-2 (COVID-19) mRNA-1273 vaccine 09/17/20 R ecorded tetanus/diphtheria/pertussis, acel(Tdap) 05/19/17 Given influ virus vac, H1N1, inactive(oldterm) 3 05/12/09 Given Pneumococcal Vacc (oldterm) 04/20/07 Given tetanus-diphtheria toxoids (Td) 4 03/04/07 Given 1Result Comment: [05/19/2017] [facility] [place] [id number] 2Admin Note: SANOFI PASTEUR NO CONTRAINDICATIONS 3Admin [...] 180.0 Unit: tablet Repeat number: 1 Denzel Max SoloStar 300 units/mL subcutaneous solution = 16 [...] Safety Implantable Status Assigning Authority Unknown Unknown [id number] Unknown 10/27/22 Unknown Unknown Active Unk nown Patient Care team information Care Team Personnel Name: Izabella MCDONOUGH, Azam Wyatt Position: [facility] Physician - Primary Care Member Role: PCP Address: [address] [place] [address] Telecom: Name: Elva Armstrong RN Position: S RN Member Role: Primary Care Nurse Name: Joe Mehta RN Position: S RN Member Role: Primary Care Nurse Care Team Related Persons Name: CHEIKH TRAN Name: FILOMENA TRAN Name: ELLA GONZALEZ Insurance Providers Guarantor name: ARNOLD TRAN Health Plan Information #: 1 Payer: [employer] MEDICARE ADV HMO Payer Identifier: PAL Member Number: [id number] Group Number: [id number] Subscriber Identifier: [id number] Relationship to Subscriber: self Coverage Type: Medicare HMO Coverage Verification Date: Telecom: NA Address:
--- NOTE | 2025-02-20 10:48 | MHC.OFFVIS ---
Intake Visit Reasons: 2m/PVR Intake Note: Patient is present for 2m/PVR Urology Medication:Amitriptyline, Estradiol Antibiotic Allergy:None Blood Thinner:Apixaban PVR:106ml Wind Turbine Installer Required: No Allergies Iodinated Contrast Media (IVP DYE) Allergy (Intermediate, Verified 02/20/25 10:49) HIVES HPI Comments Details: Amanda is a 69-year-old female who has had voiding dysfunction with urinary leakage for several years Status post sling Status post Medtronic InterStim [address] Raymond Urodynamic findings Discussed re-evaluate sacral neuromodulation therapy Patient wants urodynamics fax to Dr. Jayde Levin F#[phone] [facility] Medical History Hx of sleep apnea Elevated cholesterol PAF (paroxysmal atrial fibrillation) Hypothyroidism Dislocated patella PONV (postoperative nausea and vomiting) Osteoarthritis Psoriatic arthritis Hx of skin cancer, basal cell Diabetes ADD (attention deficit disorder) PVC (premature ventricular contraction) Surgical History Hx of colonoscopy History of bilateral knee arthroplasty Hx of LASIK H/O cystoscopy H/O knee surgery History of colon resection H/O abdominoplasty History of bladder surgery H/O: section Social History Patient Tobacco Use Status: Former Tobacco user Review of Systems Const All systems reviewed & are unremarkable except as noted in HPI and below Reports no additional complaints Eyes Reports no additional complaints ENT Reports no additional complaints Card Reports no additional complaints Resp Reports no additional complaints GI Reports no additional complaints Reports as per HPI Musc Reports no additional complaints Skin/Breast Reports system reviewed and no additional complaints, except as documented Neuro Reports no additional complaints Psych Reports no additional complaints Endo Reports no additional complaints Rich/Lymph Reports no additional complaints Aller/Immun Reports no additional complaints Results AMB Urinalysis, Automated UA Leukoctes 0 Akilah/uL Last Edit by Annabelle Ortiz on 02/20/25 15:17 UA Nitrite Negative Last Edit by Annabelle Ortiz on 02/20/25 15:17 UA Urobilinogen 3.5 mg/dL Last Edit by Annabelle Ortiz on 02/20/25 15:17 UA Protein 0 mg/dL Last Edit by Annabelle Ortiz on 02/20/25 15:17 UA pH 6.0 Last Edit by Annabelle Ortiz on 02/20/25 15:17 UA Blood 0 Edilberto/uL Last Edit by Annabelle Ortiz on 02/20/25 15:17 UA Specific Jennings 1.015 Last Edit by Annabelle Ortiz on 02/20/25 15:17 UA Ketone Negative Last Edit by Annabelle Ortiz on 02/20/25 15:17 UA Bilirubin 0 mg/dL Last Edit by Annabelle Ortiz on 02/20/25 15:17 UA Glucose 0 mg/dL Last Edit by Annabelle Ortiz on 02/20/25 15:17 Assessment & Plan Assessment & Plan Orders: Orders AMB Urinalysis Automated Today N31.9 - Neuromuscular dysfunction of bladder, unspecified, N32.81 - Overactive bladder, N39.0 - Urinary tract infection, site not specified XR sacrum coccyx min 2V Today N31.9 - Neuromuscular dysfunction of bladder, unspecified AMB Post Void Residual by ultrasound Today N31.9 - Neuromuscular dysfunction of bladder, unspecified, N32.81 - Overactive bladder, N39.0 - Urinary tract infection, site not specified Coding
--- OUTSIDE RECORDS SUMMARY | 2025-02-20 11:18 | XMS_ITS | Clinical Summary ---
Author Organization [facility] Address [address] [address] Phone Care Team Providers Care Electrical Controls Technician Name Role Phone Azam Parekh MD Primary Care Provider [phone] Allergies Active Allergy Reactions Criticality Noted Date Comments Dog Dander 12/16/2024 Other Reaction(s): sneezing This is per allergy testing Horse Dander 12/16/2024 Other Reaction(s): sneezing Per allergy testing-does not react to horses Horse/Equine Containing Products Sneezing 10/31/2022 Per allergy testing-does not react to horses House Dust Sneezing 10/31/2022 Tested with allergy testing- no known response Other Reaction(s): sneezing Iodinated Contrast Media Hives,Unknown 07/07/20 21 Other Sneezing 10/31/2022 No known response - tested positive with allergy testing Medications levothyroxine (SYNTHROID, LEVOTHROID) 112 MCG tablet [...] tablet Take 40 mg by mouth daily. 09/13/19 22 Active ELIQUIS 5 mg tablet Take 5 mg by mouth. 04/08/20 22 Active FREESTYLE LITE Strp strips 1 each by Miscellaneous route 3 (three) times a day before meals. Use to check BG 3 times/day when not wearing Irving 100 strip 3 09/07/19 23 Active lancets 28 gauge Misc 1 each by Miscellaneous route 3 (three) times a day before meals. 100 each 3 09/07/19 23 Active HUMALOG KWIKPEN INSULIN 200 unit/mL (3 mL) InPn subcutaneous penIndications:T ype 2 diabetes mellitus with hyperglycemia, with long-term current use of insulin INJECT 4-14 UNITS SUBCUTANEOUSLY UP TO THREE TIMES A DAY WITH MEALS PER SLIDING SCALE. MAX 42 UNITS DAILY 30 mL 3 11/13/19 24 Active TOUJEO MAX U-300 SOLOSTAR 300 unit/mL (3 mL) InPnIndications: Type 2 diabetes mellitus with hyperglycemia, with long-term current use of insulin Inject 18 Units under the skin daily. 6 mL 3 01/19/20 24 Active FREESTYLE IRVING 3 READER MiscIndications: Type 2 diabetes mellitus with hyperglycemia, with long-term current use of insulin Use to continuously monitor blood sugars with the Irving 3 sensor 1 each 02/27/20 24 Active TRULICITY 1.5 mg/0.5 mL subcutaneous injectionIndicat ions:Type 2 diabetes mellitus with hyperglycemia, with long-term current use of insulin Inject 0.5 mL (1.5 mg total) under the skin every 7 days. 6 mL 3 07/05/20 24 Active nystatin ointment Apply topically 2 (two) times a day. For a month then twice weekly 30 g 2 12/17/19 25 Active triamcinolone acetonide 0.1 % ointment Apply topically 2 (two) times a day. X 4 weeks then twice weekly 30 g 3 12/17/19 25 Active FREESTYLE IRVING 3 SENSOR DeviIndications: Type 2 diabetes mellitus with hyperglycemia, with long-term current use of insulin CHANGE SENSOR EVERY 14 DAYS 2 each 01/07/20 25 Active betamethasone, augmented, (DIPROLENE) 0.05 % ointment Apply topically 2 (two) times a day. Active hydrocortisone 2.5 % cream Apply topically 2 (two) times a day. Active calcipotriene (DOVONEX) 0.005 % cream APPLY TO TRUNK , ARMS, AND LEGS TWO TIMES A DAY NEEDED ; ALTERNATE TIMES 01/03/20 25 Active fluocinonide 0.05 % external solution 60 mL, 0 Refill(s), APPLY TO SCALP TWO TIMES A DAY NEEDED FOR FLARES WEAN OFF IMPROVES, 0 Refills, 01/07/25 9:35:00 AM EDT, Partial fill upon patient request if the prescription is for a schedule II opioid drug. 01/08/20 Active bethanechol (URECHOLINE) 50 MG tablet 60 each, 0 Refill(s), TAKE ONE TABLET BY MOUTH TWICE A DAY, 0 Refills, 01/07/25 9:34:00 AM EDT, Partial fill upon patient request if the prescription is for a schedule II opioid drug. 01/08/20 Active sulfamethoxazole -trimethoprim (BACTRIM DS) 800-160 mg per tablet Take 1 tablet by mouth 2 (two) times a day. 01/17/20 Active benazepril (LOTENSIN) 5 MG tablet Take 10 mg by mouth. 01/08/20 Active clobetasol (TEMOVATE) 0.05 % external solution APPLY TO SCALP TWICE DAILY NEEDED FOR FLARES, DECREASE SYMPTOMS IMPROVE 02/14/20 Active ZORYVE 0.3 % cream APPLY TOPICALLY TO PSORIASIS ONCE DAILY 02/15/20 Active COSENTYX PEN, 2 PENS, 150 mg/mL subcutaneous pen injection Inject 150 mg under the skin every 7 days. 02/06/20 Active Active Problems Problem Noted Date Diagnosed Date Urine incontinence 02/18/2025 Overview (02/18/2025): With some frequency, post-void residual (via urodynamics with urologist) of 1/3 of volume Rx for bethanechol from urologist not making impact Cystocele, midline 02/18/2025 Overview (02/18/2025): Relatively mild degree, h/o colporrhaphy and ? Sling with Dr Crow of [facility] urogyn Assessment & Plan (02/18/2025 8:54 AM EDT): Based on sxs and the degree of prolapse, I advised only small chance that pessary or repeat anterior colporrhaphy will result in sig improvement in post-void residual or in the bladder sxs, multiple factors are present Can certainly try pessary to see if there is any benefit, or consult with urogyn/ urologist again Vulvar itching 12/16/2024 Lichen simplex chronicus 12/16/2024 Overview (01/21/2025): Significant generally symmetric bilateral erythema mostly to labia majora Vulvar biopsy showed lichen simplex chronicus, negative staining for fungal organisms Millinery Department Manager did not examine the vulva, but diagnosed this as psoriasis given that she has psoriasis elsewhere Assessment & Plan (01/21/2025 8:08 PM EDT): Advised that both psoriasis and the lichen simplex chronicus can respond to steroids, though sometimes psoriasis may have a different approach and there may be some infusions for her psoriatic arthritis that may also help with the skin area In the meantime, advised that she does not have to use nystatin as is no evidence of yeast. Discussed using either the triamcinolone or the cortisol twice daily for up to 6 weeks total and then taper down to once or twice a week. Also encouraged her to have the education professor do a direct exam of the vulva at some point to try to be more certain whether this is LSC or psoriasis Assessment & Plan (12/16/2024 4:14 PM EDT): Biopsies sent, recommend using topical nystatin with topical triamcinolone twice daily with follow-up in 4 weeks. If there is any fungal elements seen on the skin biopsy, would also treat with fluconazole for a longer course. I do not see the benefit for vaginal antifungal as there is really no evidence of an intravaginal yeast infection Type 2 diabetes mellitus wit h hyperglycemia, [...] viable option. Amanda had site reactions from Trulicity in the past, could consider Ozempic as [...] medications, especially now with being in the donwa hole with Medicare Discussed options to help [...] her insulins. I have reached out to [employer] and [employer] reps to see if they can offer any suggestions for assistance. Amanda started to go through the patient assistance applications, but stopped because her income is falsely high this year and will not be fixed until filing taxes next year, per Amanda's report. We discussed calling the [facility] and I gave her [...] of medications, unable to refill with last knife glazer since her provider left the practice. Amanda [...] drawn just a few days ago at [facility] for her sr community manager, which we can request results of. Will [...] to review Amanda reports having done at [facility], will request copy Goal LDL < 70 [...] Encounters Date Type Department Care Team Description 02/17/2025 2:10 PM EDT Office Visit [facility] [address] [place] [address] [place] [address] Jayde Walter MD Urinary incontinence, unspecified type (Primary Dx); Cystocele, midline 01/21/2025 11:20 AM EDT Office Visit [facility] [address] [place] [address] [place] [address] Jayde Walter MD Lichen simplex chronicus (Primary Dx) 01/06/2025 Refill [facility] [address] [place] [address] Zelda Gatica CNP Medication Refill 12/16/2024 2:30 PM EDT Office Visit [facility] [address] [place] [address] [place] [address] Jayde Walter MD Vulvar rash (Primary Dx); Vulvar itching 12/11/2024 Telephone [facility] [address] [place] [address] [place] [address] Unknown, Unknown, Yeast Infection from Last 3 Months Social History Tobacco [...] with a working camera? Not on file Comments No Sex and Gender Information Value Date Recorded Sex Assigned at Not on file Legal Sex Female 4:48 PM EST Gender Identity Not on file Sexual Orientation Not on file Last Filed Vital Signs Vital Sign Reading Time Taken Comments Blood Pressure 108/60 02/17/2025 2:07 PM EDT Pulse 81 09/12/2024 9:58 AM EST Temperature 36.3 C (97.3 F) 02/27/2024 1:11 PM EDT Respiratory Rate 18 10/31/2022 10:04 AM EDT Oxygen Saturation 97% 06/03/2024 12:54 PM EST Inhaled Oxygen Concentration - - Weight 85.1 kg (187 lb 9.6 oz) 02/17/2025 2:07 P M EDT Height 177.8 cm (5' 10 ) 02/17/2025 2:07 PM EDT Body Mass Index 26.92 02/17/2025 2:07 PM EDT Plan of Treatment Upcoming Encounters Date Type Department Care Team (Late st Contact Info) Description 03/04/2025 10:20 AM EDT Office Visit [facility] [address] [place] [address] [place] [address] Zelda Gatica, JOYCELYN [address] [place] [address], [address] [place] [address] 03/19/2025 11:00 AM EDT Nutrition [facility] [address] [place] [address] Zelda Gatica, FIELD SAMPLING TECHNICIAN 22 [facility], [address] [place] [address] Ladi Dowling, LDN 22 [facility], [address] [place] [address] Health Maintenance Due Date Last Done Comments DEPRESSION SCREENING 1967 HEPATITIS C SCREENING 1973 MAMMOGRAM 1995 COLOGUARD 2000 COLONOSCOPY 2000 COLORECTAL CANCER SCREENING 2000 FIT TEST 2000 FOBT 2000 SIGMOIDOSCOPY 2000 VIRTUAL COLONOSCOPY 2000 OSTEOPOROSIS SCREENING INITIAL (ONE-TIME) 2020 TSH LEVEL 07/31/2020 07/31/2019 DIABETIC EYE EXAM 09/30/2021 CREATININE LEVEL 09/30/2022 09/30/2021 POTASSIUM LEVEL 09/30/2022 09/30/2021 COVID-19 VACCINE ( season) 2024 08/11/2022, 05/11/2021, 10/16/2020, Additional history exists HEMOGLOBIN A1C 03/12/2025 09/12/2024, 05/17, 02/27/2024, Additional history exists BLOOD PRESSURE 08/20/2025 02/17/2025 Adult Td,Tdap Booster 05/19/2027 05/19/2017, 007 ZOSTER VACCINES Completed 01/18/2022, 07/14/2021 PNEUMOCOCCAL VACCINES (50+ years) Completed 11/22/2022, 04/20/2007 RSV VACCINE Completed 05/24/2024 SMOKING STATUS SCREENING (Once After 26 Yrs) Completed 02/17/2025 HEPATITIS A VACCINES Aged Out No long er eligible based on patient's age to complete this topic HIB VACCINES Aged Out No longer eligi ble based on patient's age to complete this topic MENINGOCOCCAL VACCINES (ACWY) Aged Out No longer eligible based on patient's age to complete this topic MENINGOCOCCAL VACCINES (B) Aged Out N o longer eligible based on patient's age to complete this topic Medical Devices Not on file Procedures Procedure Name Priority Date/Time Associated Diagnosis Comments POCT WET PREP Routine 12/16/2024 4:09 PM EDT Vulvar itching POCT MONIQUE WET PREP Routine 12/16/2024 4:0 9 PM EDT Vulvar itching ANATOMIC PATHOLOGY Routine 12/16/2024 12 :00 AM EDT POCT HEMOGLOBIN A1C Routine 09/12/2024 1 0:15 AM EST Type 2 diabetes mellitus with hyperglycemia, with long-term current use of insulin Primary hypertension COMPREHENSIVE METABOLIC PANEL Routine 09/30/2021 3:50 PM EDT Uncontrolled type 2 diabetes mellitus with complication, without long-term current use of insulin from Last 3 Months or Most Recently Relevant to Health Maintenance Results * POCT MONIQUE Wet Prep (12/16/2024 4:09 PM EDT) MONIQUE Wet Prep Absent Absent [facility] Comment:absent whiff Other 12/16/2024 4:09 PM EDT Jayde Walter MD POINT OF CARE TEST ORDERABLES Fi nal Result Performing Organization Address City/State/[facility] Co de Phone Number [facility] [address] [place] [address], [facility] * POCT Wet Prep (12/16/2024 4:09 PM EDT) Yeast [facility] Epithelial Present None - Few [facility] Trichomonas Absent Absent [facility] RBC Absent Absent [facility] WBC Few None [facility] Bacteria [facility] Other [facility] Other 12/16/2024 4:09 PM EDT Jayde Walter MD POINT OF CARE TEST ORDERABLES Fi nal Result [address] [address], [facility] * Anatomic Pathology (12/16/2024 12:00 AM EDT) 12/16/2024 12/17/2024 9:4 7 AM EDT Narrative SEE NARRATIVE - 12/18/2024 3:27 PM EDT [address] [address] [place]: Kuldeep Holman MD Surgical Pathology Report FINAL PATHOLOGIC DIAGNOSIS: LEFT OUTER VULVA AT 2 O'CLOCK, BIOPSY: Lichen simplex chronicus. PAS stain is negative for fungi. Electronically Signed Out By Larisa Davey MD By his/her signature above, the pathologist listed as making the Final Diagnosis certifies that he/she has personally reviewed this case and confirmed or corrected the diagnosis. CLINICAL HISTORY Vulvar rash (R21) Clinical history: Significant vulvar erythema/rash Pre-/postop diagnosis: Suspect contact dermatitis; rule out yeast, Paget's SPECIMENS SUBMITTED: A: LEFT OUTER VULVA AT 2 O'CLOCK, BIOPSY GROSS DESCRIPTION LEFT OUTER VULVA AT 2 O'CLOCK, PUNCH BIOPSY: Received in formalin is a 0.3 cm diameter circular portion of holt skin excised to a maximum depth of 0.3 cm which is submitted in toto in a single cassette labeled A1. Grossed by: JENNIFER Nielsen, PA(ASCP) [id number] 12/17/2024 Grossing Staff: [id number] Patient Name: AMANDA TRAN : 1955 (Age: 69) Sex: F Institution: [facility] Location: [facility] Date of Operation: 12/16/2024 Date of Reported: 12/18/2024 15:27 Results To: Jayde Parekh MD us Jayde Walter MD PATHOLOGY ORDERABLES Final Resul t SEE NARRATIVE * (ABNORMAL) POCT Hemoglobin A1c (09/12/2024 10:15 AM EST) Hemoglobin A1c 7.3(A) 4.2 - 5.8 % [facility] Other 09/12/2024 10:1 5 AM EST Zelda Gatica CNP POINT OF CARE TEST ORDERABLES Final Result [facility] [address] [place] [address], [facility] * (ABNORMAL) Comprehensive metabolic panel (09/30/2021 3:50 PM EDT) SODIUM 139 133 - 146 mmol/L [facility] POTASSIUM 4.1 3.3 - 5.1 mmol/L [facility] CHLORIDE 104 96 - 108 mmol/L [facility] CO2 25 21 - 35 mmol/L [facility] BUN 19 6 - 19 mg/dL [facility] CREATININE 0.60 0.5 - 1.5 mg/dL [facility] GLUCOSE 185(H) 70 - 99 mg/dL [facility] ALBUMIN 4.5 3.9 - 4.8 g/dL [facility] TOTAL PROTEIN 7.2 6.5 - 8.0 g/dL [facility] CALCIUM 9.9 8.4 - 10.3 mg/dL [facility] ALKALINE PHOSPHATASE 72 39 - 117 U/L [facility] TOTAL BILIRUBIN 1.2 0.0 - 1.2 mg/dL [facility] AST 21 0 - 37 U/L [facility] ALT 23 0 - 40 U/L [facility] GLOBULIN 2.7 1 - 4.8 g/dL [facility] EGFR 99 >59 mL/min/1.7 3m2 [facility] Comment:Estimated glomerular filtration rate calculated using the CKD-EPI refit equation. ANION GAP 14 10 - 20 mmol/L [facility] Blood 09/30/2021 3:50 PM EDT 09/30/2021 3:56 PM EDT us Zelda Gatica FIELD SAMPLING TECHNICIAN LAB BLOOD ORDERABLES Final Re sult [address] [address] from Last 3 Months or Most Recently Relevant to Health Maintenance Insurance [employer] Care Teams Electrical Controls Technician Relationship Specialty Start Date End Date Azam Parekh MD [address] [address] PCP - General Internal Medicine 09/23/21 Additional Source Comments The information contained in this document represents components of the legal health record. It is not the complete legal health record.[facility]
--- OUTSIDE RECORDS SUMMARY | 2025-02-20 11:18 | XMS_ITS ---
Author Name [facility] Organization Unknown Care Team Organization Name Specialty Phone Email Start Date End Da [facility] Azam [facility] Primary [facility]
--- OUTSIDE RECORDS SUMMARY | 2025-02-20 11:18 | XMS_ITS | Encounter Summary ---
Author Organization [facility] Address [address] [place] [address] Care Team Providers Care Child Adolescent Care Name Role Phone Azam Parekh Primary Care Provider [phone] Papo Dominguez APRN Unavailable Unavailabl e Vishal Schuler Unavailable Unavailable Encounter Details Date Type Department Care Team (Late st Contact Info) Description 06/06/2019 Scanned Document [facility] Endocrinology [address] [place] [address] [phone] Papo Dominguez APRN Social History Tobacco Use [...] on filedocumented in this encounter Care Teams Child Adolescent Care Relationship Specialty Start Date End Date Azam Parekh [address] [place] [address] PCP - General 04/24/19 Papo Dominguez APRN [address] [facility] [address] [place] [address] Nurse Practitioner Endocrinology 05/09/19 Vishal Schuler [address] [facility] [address] [place] [address] Physician Ophthalmology 05/09/19 documented as of this encounter
== END 2025-02-20 11:25 | disposition home or self-care (01) ==
LOC: HO.HUSH 10:38
PROVIDERS: PCP Internal Medicine; Visit Provider Urology
DX: N32.81 Overactive bladder (principal); N31.9 Neuromuscular dysfunction of bladder, unspecified; N39.0 Urinary tract infection, site not specified

== ENCOUNTER → 2025-02-20 11:58 | Outpatient (BNV) | payer MEDICARE, SELFPAY | PROVIDERS: PCP Internal Medicine; Visit Provider Radiology Diagnostic Radiology | DX: N31.9 Neuromuscular dysfunction of bladder, unspecified (principal) | CPT/HCPCS: 72220 ==